=== PATIENT | male | born 1985 | race Two or more races ===

== ENCOUNTER 2017-12-05 07:47 | Inpatient (IN) | payer OTHER ==
[~2017-12-05] VITALS: Ht 175.3 cm; Wt 131.1 kg
[2017-12-05] MEDS ORDERED: FOLIC ACID 1 MG TABLET ONE (07:58)
[2017-12-05] MEDS ORDERED: THIAMINE HCL 100 MG TABLET ONE (07:58)
[2017-12-05] MEDS ORDERED: LORAZEPAM INJ 2 MG/ML VIAL ONE ×2 (07:58→08:47)
[2017-12-05] MEDS ORDERED: LORAZEPAM INJ 2 MG/ML VIAL IVP ONE (08:00)
[2017-12-05] MEDS ORDERED: THIAMINE HCL 100 MG TABLET PO ONE (08:00)
[2017-12-05] MEDS ORDERED: FOLIC ACID 1 MG TABLET PO ONE (08:00)
[2017-12-05] MEDS ORDERED: IV D5/0.45 NACL 500 ML IV ONE (08:00)
[2017-12-05] MEDS ORDERED: IV NS 0.9% 1,000 ML BAG IV ONE ×2 (08:00→10:00)
[2017-12-05 08:14] LABS: BASOPHILS % (AUTO) 0.5 % (0.0-2.0); EOSINOPHILS # (AUTO) 0.1 /CMM (0.0-0.7); EOSINOPHILS % (AUTO) 1.3 % (0.0-6.0); HEMATOCRIT 46 % (39-51); HEMOGLOBIN 15.9 g/dL (13.5-17.5); LYMPHOCYTES # (AUTO) 1.5 /CMM (0.8-4.8); LYMPHOCYTES % (AUTO) 21.9 % (20.0-44.0); MEAN CORPUSCULAR HEMOGLOBIN 30 PG (26.0-33.0); MEAN CORPUSCULAR HGB CONC 35 g/dl (31.0-36.0); MEAN CORPUSCULAR VOLUME 88 fL (80-96); MONOCYTES # (AUTO) 0.6 /CMM (0.1-1.30); MONOCYTES % (AUTO) 8.1 % (2.0-12.0); NEUTROPHILS # (AUTO) 4.7 /CMM (1.8-8.9); NEUTROPHILS % (AUTO) 68.2 % (43.0-81.0); PLATELET COUNT (AUTO) 334 /CMM (150-450); RDW COEFFICIENT OF VARIATION 14.8 (11.5-15.0); RED BLOOD CELL COUNT(AUTO) 5.21 MIL/uL (4.5-6.0)
[2017-12-05 08:25] LABS: CALCIUM, SERUM 9.5 mg/dL (8.5-10.1); CARBON DIOXIDE 19 mmol/L (21-32); CHLORIDE 93 mmol/L (98-107); CREATININE 1.2 mg/dL (0.6-1.3); GLUCOSE 131 mg/dL (74-106); POTASSIUM 3.8 mmol/L (3.5-5.1); SODIUM SERUM 132 mmol/L (136-145); UREA NITROGEN, BLOOD 5 mg/dL (7-18)
[2017-12-05 08:31] LABS: ALANINE AMINOTRANSFERASE 102 U/L (12-78); ALCOHOL, BLOOD < 3 mg/dL (0-0); ALKALINE PHOSPHATASE 74 U/L (46-116); ASPARTATE AMINOTRANSFERASE 73 U/L (15-37); BILIRUBIN,DIRECT 0.2 mg/dL (0.0-0.2); BILIRUBIN,TOTAL 0.8 mg/dL (0.2-1.0); TOTAL PROTEIN, SERUM 8.5 g/dL (6.4-8.2)
[2017-12-05] MEDS ORDERED: LORAZEPAM INJ 2 MG/ML VIAL IV ONE (09:00)
[2017-12-05 11:30] VITALS: BP 155/91
[2017-12-05] MEDS ORDERED: Folic acid 1 MG in IV D5W 50 ML IV SCH (11:30)
[2017-12-05] MEDS ORDERED: ONDANSETRON HCL/PF 4 MG/2 ML VIAL IVP PRN (11:30)
[2017-12-05] MEDS ORDERED: ZOLPIDEM TARTRATE 5 MG TABLET PO PRN (11:30)
[2017-12-05] MEDS ORDERED: ACETAMINOPHEN 325 MG TABLET PO PRN (11:30)
[2017-12-05] MEDS ORDERED: MAG HYDROX/AL HYDROX/SIMETH 30 ML UDC PO PRN (11:30)
[2017-12-05] MEDS ORDERED: Thiamine 100 MG in IV D5W 50 ML IV SCH (11:30)
[2017-12-05] MEDS ORDERED: Z GUARD REMEDY 2 OZ OINT TP PRN (11:30)
[2017-12-05] MEDS ORDERED: LORAZEPAM INJ 2 MG/ML VIAL IV PRN (11:30)
[2017-12-05] MEDS ORDERED: MAGNESIUM HYDROXIDE 30 ML UDC PO PRN (11:30)
[2017-12-05] MEDS ORDERED: HYDROCODONE/APAP 5/325MG 1 EACH TABLET PO PRN (11:30)
[2017-12-05] MEDS: IV 1/2NS 1000 ML 1,000 ML IV PRN ×2 (12:15→21:52)
[2017-12-05 16:00] VITALS: BP 163/93
[2017-12-05] MEDS: AMLODIPINE BESYLATE 5 MG TABLET PO SCH (17:08)
[2017-12-05 20:00] VITALS: BP 141/86
[2017-12-06] VITALS: BP 129/86
[2017-12-06 04:00] VITALS: BP 142/88
[2017-12-06 07:23] LABS: BASOPHILS % (AUTO) 0.1 % (0.0-2.0); EOSINOPHILS # (AUTO) 0.2 /CMM (0.0-0.7); EOSINOPHILS % (AUTO) 3.7 % (0.0-6.0); HEMATOCRIT 42 % (39-51); HEMOGLOBIN 14.2 g/dL (13.5-17.5); LYMPHOCYTES # (AUTO) 1.2 /CMM (0.8-4.8); LYMPHOCYTES % (AUTO) 23.8 % (20.0-44.0); MEAN CORPUSCULAR HEMOGLOBIN 30 PG (26.0-33.0); MEAN CORPUSCULAR HGB CONC 34 g/dl (31.0-36.0); MEAN CORPUSCULAR VOLUME 89 fL (80-96); MONOCYTES # (AUTO) 0.4 /CMM (0.1-1.30); MONOCYTES % (AUTO) 7.6 % (2.0-12.0); NEUTROPHILS # (AUTO) 3.4 /CMM (1.8-8.9); NEUTROPHILS % (AUTO) 64.8 % (43.0-81.0); PLATELET COUNT (AUTO) 262 /CMM (150-450); RDW COEFFICIENT OF VARIATION 14.6 (11.5-15.0); RED BLOOD CELL COUNT(AUTO) 4.68 MIL/uL (4.5-6.0); WHITE BLOOD COUNT (AUTO) 5.2 K/uL (4.3-11.0)
[2017-12-06 07:36] LABS: ALBUMIN 3.4 g/dL (3.4-5.0); CALCIUM, SERUM 8.8 mg/dL (8.5-10.1); CREATININE 0.7 mg/dL (0.6-1.3); PHOSPHORUS 4.6 mg/dL (2.5-4.9); POTASSIUM 3.9 mmol/L (3.5-5.1); TOTAL PROTEIN, SERUM 8.5 g/dL (6.4-8.2)
[2017-12-06 07:40] LABS: MAGNESIUM 1.2 mg/dL (1.8-2.4)
[2017-12-06 08:00] VITALS: BP 147/76
[2017-12-06 08:24] VITALS: BP 147/76
[2017-12-06] MEDS: AMLODIPINE BESYLATE 5 MG TABLET PO SCH (08:24)
[2017-12-06] MEDS ORDERED: FOLIC ACID 1 MG TABLET PO SCH (09:00)
[2017-12-06] MEDS ORDERED: THIAMINE HCL 100 MG TABLET PO SCH (09:00)
[2017-12-06] MEDS: Magnesium 1GM/D5W 100ML PREMIX 100 ML IV SCH ×4 (11:48→14:46)
== END 2017-12-06 15:45 | disposition home or self-care (01) | DRG 775 ==
LOC: ER 07:48 → TELE 10:51 → MED 12-06 12:12
PROVIDERS: ADMIT Internal Medicine; ATTEND Internal Medicine
DX: F10.239 Alcohol dependence with withdrawal, unspecified (principal); G92 Toxic encephalopathy; E87.2 Acidosis; G40.89 Other seizures; E87.1 Hypo-osmolality and hyponatremia; T51.0X1A Toxic effect of ethanol, accidental (unintentional), initial encounter; Y90.0 Blood alcohol level of less than 20 mg/100 ml; R74.0 Nonspecific elevation of levels of transaminase and lactic acid dehydrogenase [LDH]
CPT/HCPCS: 36415; 70450-TC; 80048-TC; 80053-TC; 80061-TC; 80076-TC; 83735-TC; 84100-TC; 85025-TC; 87081-TC; A4606; G0480; J2060; J3411; J3475; J3490; J7030; J7060; Z7610

== ENCOUNTER 2018-01-10 23:02 | Emergency (ER) | payer OTHER | END 2018-01-11 00:24 | disposition home or self-care (01) | DX: F10.10 Alcohol abuse, uncomplicated (principal) ==

== ENCOUNTER 2018-02-13 22:33 | Emergency (ER) | payer OTHER ==
[~2018-02-13] VITALS: Ht 172.7 cm; Wt 168.7 kg
--- NOTE | 2018-02-13 22:50 | NUR ---
TO BED 11 BIB MOM C/O HIGHBLOOD PRESSURE. PT BP 133/87. PT AAOX4, SLURRED SPEECH, HEAVY ALCOHOL SMELL ON BREATH. PT MOM CONFIRMS ALCOHOL INTOXICATION. PLACE PT ON CARDIAC MONITORING, CONTINUOUS POX. PENDING ER MD CHEEMA.
--- NOTE | 2018-02-13 22:51 | NUR ---
ER MD AT BEDSIDE TO ANETTE PT. PT MOM AT BEDSIDE.
[2018-02-13] MEDS ORDERED: IBUPROFEN 400 MG TABLET PO ONE (23:00)
[2018-02-13] MEDS ORDERED: IBUPROFEN 400 MG TABLET ONE (23:10)
--- NOTE | 2018-02-14 00:21 | NUR ---
PT ASLEEP, NO ACUTE DISTRESS NOTED, RESP EVEN AND UNLABORED. CALL LIGHT WIHTIN REACH. PT MOM REMAINS AT BEDSIDE.
--- NOTE | 2018-02-14 01:46 | NUR ---
PT ASLEEP, EASILY AROUSABLE. NO ACUTE DISTRESS NOTED, RESP EVEN AND UNLABORED. CALL LIGHT WIHTIN REACH. PT MOM REMAINS AT BEDSIDE.
--- NOTE | 2018-02-14 02:31 | NUR ---
ASSUMED D/C CARE ONLY AT THIS TIME ON BEHALF OF PRIMARY NURSE ED. Patient discharged to home in stable condition. Written and verbal after care instructions given. Patient verbalizes understanding of instruction. Ambulatory with a steady gait without any s/s of distress or c/o. Resp even and unlabored.
[2018-02-14 02:33] VITALS: BP 127/76
== END 2018-02-14 02:36 | disposition home or self-care (01) ==
LOC: ER 22:38
DX: S09.8XXA Other specified injuries of head, initial encounter (principal); F10.129 Alcohol abuse with intoxication, unspecified; G40.909 Epilepsy, unspecified, not intractable, without status epilepticus; X58.XXXA Exposure to other specified factors, initial encounter; Y93.89 Activity, other specified; Y92.89 Other specified places as the place of occurrence of the external cause; Y99.8 Other external cause status
CPT/HCPCS: 70450-TC; A4606; Z7610

== ENCOUNTER 2018-12-17 22:32 | Inpatient (IN) | payer OTHER ==
[~2018-12-17] VITALS: Ht 170.2 cm; Wt 114.3 kg
[2018-12-17 22:00] VITALS: BP 177/107
[2018-12-17 22:35] VITALS: BP 177/107
--- NOTE | 2018-12-17 22:45 | NUR ---
INTERNATIONAL SALES REPRESENTATIVEONCOLOGY ACCOUNT SPECIALIST NOTED: PT ADMITTED FROM [facility] VIA GURNEY ACCOMPANIED BY 2EMTS. PT IS ALERT AND ORIENTED X2 WITH EPISODES OF CONFUSION. VERBALLY RESPONSIVE. NO ACUTE DISTRESS NOTED. DENIES PAIN AND DISCOMFORT AT THIS TIME. ON ROOM AIR, SATURATING WELL. NO SOB NOTED. SINUS TACHY ON TELE MONITOR HR 103BPM. BP HIGH, 177/103. ANTISQUEAK WORKER CAMILLA CLARKE MADE AWARE. PT HAS AN IV LINE ON HIS LEFT ANTECUBITAL #20 INTACT AND PATENT, FLUSHING WELL. PERTINENT ASSESSMENTS DONE, SKIN IS INTACT. BELONGINGS LIST SIGNED AND ACCOUNTED FOR. KEPT CLEAN, DRY AND COMFORTABLE. CALL LIGHT PLACED WITHIN REACH. SIDE RAILS UP X3. BED ALARM ON. BED LOCKED AND IN LOWEST POSITION. WILL CONTINUE TO MONITOR PT.
[2018-12-17] MEDS ORDERED: LORAZEPAM INJ 2 MG/ML VIAL IV PRN (23:30)
[2018-12-17] MEDS ORDERED: ACETAMINOPHEN 325 MG TABLET PO PRN (23:30)
[2018-12-17] MEDS ORDERED: HYDROCODONE/APAP 5/325MG 1 EACH TABLET PO PRN (23:30)
[2018-12-17] MEDS ORDERED: ONDANSETRON HCL/PF 4 MG/2 ML VIAL IVP PRN (23:30)
[2018-12-17] MEDS ORDERED: MAGNESIUM HYDROXIDE 30 ML UDC PO PRN (23:30)
[2018-12-17] MEDS ORDERED: THIAMINE HCL 100 MG TABLET PO SCH (23:30)
[2018-12-17] MEDS ORDERED: FOLIC ACID 1 MG TABLET PO SCH (23:30)
[2018-12-17] MEDS ORDERED: ZOLPIDEM TARTRATE 5 MG TABLET PO PRN (23:30)
[2018-12-17] MEDS ORDERED: MAG HYDROX/AL HYDROX/SIMETH 30 ML UDC PO PRN (23:30)
[2018-12-17] MEDS ORDERED: Z GUARD REMEDY 2 OZ OINT TP PRN (23:30)
[2018-12-17] MEDS: IV NS 0.9% 1,000 ML IV PRN (23:47)
[2018-12-18] VITALS: BP_SYST 169; BP_DIAS 103; BP_DIAS 113
[2018-12-18] MEDS: LORAZEPAM INJ 2 MG/ML VIAL IV PRN ×4 (00:20→13:32)
[2018-12-18] MEDS: METOPROLOL TARTRATE 50 MG TABLET PO SCH ×2 (01:00→08:18)
--- NOTE | 2018-12-18 03:00 | NUR ---
LPTA NOTE: PT WAS TRYING TO GET OUT OF BED AND WAS PLAYING WITH HIS IV LINE. CAMILLA MIR MADE AWARE AND GAVE AN ORDER FOR A SITTER. WILL CONTINUE TO MONITOR PT.
[2018-12-18 04:00] VITALS: BP 137/92
[2018-12-18 06:43] LABS: BASOPHILS % (AUTO) 0.4 % (0.0-2.0); EOSINOPHILS % (AUTO) 1.2 % (0.0-6.0); HEMATOCRIT 42 % (39-51); HEMOGLOBIN 14.8 g/dL (13.5-17.5); LYMPHOCYTES # (AUTO) 0.6 /CMM (0.8-4.8); LYMPHOCYTES % (AUTO) 16.1 % (20.0-44.0); MEAN CORPUSCULAR HGB CONC 35 g/dl (31.0-36.0); MEAN CORPUSCULAR VOLUME 92 fL (80-96); MONOCYTES # (AUTO) 0.3 /CMM (0.1-1.30); MONOCYTES % (AUTO) 7.8 % (2.0-12.0); NEUTROPHILS # (AUTO) 2.7 /CMM (1.8-8.9); NEUTROPHILS % (AUTO) 74.5 % (43.0-81.0); PLATELET COUNT (AUTO) 161 /CMM (150-450); RED BLOOD CELL COUNT(AUTO) 4.58 MIL/uL (4.5-6.0); WHITE BLOOD COUNT (AUTO) 3.6 K/uL (4.3-11.0)
--- NOTE | 2018-12-18 06:57 | NUR ---
PARTS REMOVER NOTE: PT HAD EPISODES OF CONFUSION. FAMILY AND SITTER AT BEDSIDE DURING THIS TIME. PT REFUSED TO PUT ON TELE MONITOR AND REFUSED IVF, CAMILLA MIR AWARE. NO COMPLAINTS OF PAIN OR DISCOMFORT AT THIS TIME. NO SOB NOTED. KEPT CLEAN, DRY AND COMFORTABLE. SAFETY AND FALL PRECAUTIONS OBSERVED AND MAINTAINED. WILL ENDORSE TO DAY SHIFT RN FOR CONTINUITY OF CARE
[2018-12-18 07:06] LABS: CALCIUM, SERUM 7.6 mg/dL (8.5-10.1); CREATININE 0.6 mg/dL (0.6-1.3); PHOSPHORUS 2.5 mg/dL (2.5-4.9); POTASSIUM 3.1 mmol/L (3.5-5.1)
[2018-12-18 07:18] LABS: MAGNESIUM 0.8 mg/dL (1.8-2.4)
--- NOTE | 2018-12-18 07:20 | NUR ---
RN OPENING NOTE RECEIVED PATIENT AWAKE AND AMBULATORY. CONFUSED AT TIMES. PER NOC SHIFT RN, PATIENT REFUSED TO BE ON THE TELE MONITOR AND IVF. PATIENT HAS A SITTER ON BEDSIDE. SKIN IS INTACT. HAD A CALL FROM THE LAB REGARDING PATIENT'S CRITICAL LAB VALUE OF MG 0.8. WILL LET MD KNOW. BED ON LOWEST POSITION. CALL LIGHT WITHIN REACH. WILL CONTINUE TO MONITOR CLOSELY.
[2018-12-18 08:00] VITALS: BP 141/86
[2018-12-18] MEDS: FOLIC ACID 1 MG TABLET PO SCH (08:18)
[2018-12-18] MEDS: THIAMINE HCL 100 MG TABLET PO SCH (08:18)
[2018-12-18] MEDS ORDERED: Magnesium 1 GM/2 ML VIAL IV ONE (09:00)
[2018-12-18] MEDS: Magnesium 1GM/D5W 100ML PREMIX 100 ML IV SCH ×3 (09:10→20:47)
[2018-12-18] MEDS: POTASSIUM CHLORIDE 20 MEQ TAB.PRT.SR PO SCH ×2 (10:14→11:24)
[2018-12-18] MEDS ORDERED: AMLO10TA7 PO (10:26)
[2018-12-18] MEDS ORDERED: LISI40TA4 PO (10:26)
[2018-12-18] MEDS ORDERED: LORAZEPAM INJ 2 MG/ML VIAL IV ONE (10:30)
[2018-12-18] MEDS ORDERED: diphenhydrAMINE HCL 50 MG/ML VIAL IV ONE (11:00)
--- NOTE | 2018-12-18 14:28 | NUR ---
Social service consult requested by AVINASH Costa for alcohol abuse. Pt. is a 33 year old male who was admitted to [facility] for alcohol withdrawals. SW met with pt. bedside. Pt. was sitting on his bed. Pt's eyes were red and appeared to be withdrawing. Pt. appeared confused at times. Pt. states he lives with is family at [address], [place] [address]. Pt's emergency contact is his mother Sandy Mathew . SW inquired with pt. how much alcohol he drinks daily. Pt. stated, " A lot." SW asked again, " what's a lot?" and pt. stated he drinks a lot of vodka. Pt. has been drinking for the past 3 to 4 years. Pt. states he was in a treatment program 6 years ago. Pt. has been to AA in the past but states, he doesn't care for it too much. Pt. appears resistant to change his drinking habits. Pt. is willing to accept alcohol treatment program referrals. SW to give pt. referrals upon discharge. SW encouraged pt. to go to a treatment program. SW to follow up with pt. regarding referrals prior to discharge.
[2018-12-18] MEDS ORDERED: HALOPERIDOL LACTATE INJ 5 MG/ML VIAL IM ONE (14:30)
[2018-12-18] MEDS ORDERED: QUETIAPINE FUMARATE 25 MG TABLET PO PRN (15:00)
--- NOTE | 2018-12-18 15:57 | NUR ---
RN NOTE DRY MOP MAKER ROCIO AT BEDSIDE, PATIENT PULLED OUT HIS IV WE STEP OUT OF THE ROOM. ROCIO INSERTED A LINE TO RUN THE MG (RIGHT HAND #22). ORDERED ATIVAN 2MG ONCE AND BENADRYL ONCE. PATIENT VERY AGITATED, AMBULATING AROUND THE ROOM AND SUDDENLY PULLED OUT HIS IV AGAIN. HAD TO INSERT ANOTHER SITE TO CONTINUE THE MG (RIGHT AC #22). ONCE AGAIN, PATIENT PULLED OUT HIS IV. VERY CONFUSED, WAS ASKING FOR HIS DVD AND WANTS TO GO TO THE "PARKING LOT". ROCIO PRESCRIBED HALDOL 5 MG IM ONCE. PATIENT IS ASLEEP AT THIS TIME.
[2018-12-18 16:00] VITALS: BP 134/75
[2018-12-18] MEDS: QUETIAPINE FUMARATE 25 MG TABLET PO SCH (16:27)
--- NOTE | 2018-12-18 17:41 | NUR ---
RN NOTE ONLY 2 BAGS OF MG HAS BEEN GIVEN. WILL TRY TO INSERT ANOTHER IV SITE. AWARE
--- NOTE | 2018-12-18 18:48 | NUR ---
RN CLOSING NOTE PATIENT ASLEEP BUT EASILY AROUSABLE. IV SITE NEEDS TO BE INSERTED. ALL MEDS ARE GIVEN, VS HAS BEEN WNL THROUGH OUT THE DAY. PATIENT VERY CONFUSED. PHARMACISTS ROCIO AND PSYCH DOCTOR CAME IN TO SEE THE PATIENT. ORDERED MEDS TO RELAX THE PATIENT. SW TALKED TO THE PATIENT WELL. FAMILY CAME IN TO SEE THE PATIENT. WILL ENDORSE TO NOC SHIFT
[2018-12-18 20:00] VITALS: BP 138/86
--- NOTE | 2018-12-18 20:00 | NUR ---
SEMIAUTOMATIC STITCHER OPERATOR NOTE: RECEIVED PT ON BED ALERT TO HIMSELF, VERBALLY RESPONSIVE. SITTER AT BEDSIDE. NO ACUTE DISTRESS NOTED. DENIES PAIN AND DISCOMFORT AT THIS TIME. ON ROOM AIR, SATURATING WELL. NO SOB NOTED. IV LINE INSERTED ON LEFT FOREARM #22, INTACT AND PATENT, IVF INFUSING WELL. KEPT CLEAN, DRY AND COMFORTABLE. SAFETY AND FALL PRECAUTIONS OBSERVED AND MAINTAINED. WILL CONTINUE TO MONITOR PT. Addendum: 12/18/18 at 2221 by PHOENIX HERNANDEZ RN PT IS A MEDSURG PT.
--- NOTE | 2018-12-18 22:22 | NUR ---
MS RN NOTE: PT WAS TRANSFERRED TO RM 205. REPORT GIVEN TO ALETA GREY.
[2018-12-18 22:35] VITALS: BP 140/94
--- NOTE | 2018-12-18 22:35 | NUR ---
TRANSFER OF CARE RECEIVE PT VIA BED AND REPORT FROM SABRINA WITH 2 RN AND 1 SITTER PT A/O X2 CALM, RESPIRATIONS EVEN AND UNLABORED, NO SOB NOTED, NO DISTRESS, SAFETY MEASURES IN PLACE. WILL CONTINUE TO MONITOR. ALL BELONGINGS WITH PT. BROTHER AT BEDSIDE.
[2018-12-19] MEDS: IV NS 0.9% 1,000 ML IV PRN ×2 (00:08→08:07)
[2018-12-19] MEDS: LORAZEPAM INJ 2 MG/ML VIAL IV PRN ×2 (02:28→11:40)
--- NOTE | 2018-12-19 06:15 | NUR ---
MS RN CLOSING NOTE IN BED ASLEEP COMFORTABLY AND EASILY AWAKEN, STABLE. RESPIRATIONS EVEN AND UNLABORED. NURSING CARE RENDERED. NEEDS ATTENDED AND ANTICIPATED, KEPT DRY, CLEAN AND COMFORT. SAFETY MEASURES IN PLACE, BED IN LOW LOCKED POSITION, CALL LIGHT WITHIN EASY REACH. ENDORSE TO NEXT SHIFT CONTINUITY OF CARE.
[2018-12-19 07:10] LABS: CALCIUM, SERUM 7.7 mg/dL (8.5-10.1); CREATININE 0.5 mg/dL (0.6-1.3); MAGNESIUM 1.4 mg/dL (1.8-2.4); POTASSIUM 3.1 mmol/L (3.5-5.1)
[2018-12-19 08:00] VITALS: BP 154/91
--- NOTE | 2018-12-19 08:00 | NUR ---
RN NOTES RECEIVED PATIENT IN THE ROOM A/O X4 MALE . PATIENT HAS NO ACUTE RESPIRATORY DISTRESS, WITHDRAW,PATIENT ANXIOUS, DEPRESS, WAS COMPLAINING OF GENERALIZED PAIN 4/10 PER PATIENT REQUEST, ADMINISTERED SCHEDULED MEDICATION, INFUSING NS AT 125 ML/HR. PATIENT REFUSED SI/HI AT THIS TIME, 1;1 SITTER NEXT TO THE BED FOR SAFETY, CALL LIGHT WITHIN TO REACH, SAFETY PRECAUTION MAINTAINED ALL THE TIME.
[2018-12-19] MEDS: THIAMINE HCL 100 MG TABLET PO SCH (08:07)
[2018-12-19] MEDS: FOLIC ACID 1 MG TABLET PO SCH (08:07)
[2018-12-19] MEDS: QUETIAPINE FUMARATE 25 MG TABLET PO SCH ×3 (08:08→18:02)
[2018-12-19] MEDS ORDERED: AMLODIPINE BESYLATE 10 MG TABLET PO SCH (09:00)
[2018-12-19] MEDS ORDERED: LISINOPRIL (20MG) 20 MG TABLET PO SCH (09:00)
[2018-12-19] MEDS: POTASSIUM CHLORIDE 20 MEQ TAB.PRT.SR PO SCH ×2 (10:35→11:31)
[2018-12-19] MEDS: Magnesium 1GM/D5W 100ML PREMIX 100 ML IV SCH ×4 (10:36→13:20)
--- NOTE | 2018-12-19 11:40 | NUR ---
RN NOTES ADMINISTERED ATIVAN 2 MG/ML FOR ANXIETY PER PATIENT REQUEST, V/S TAKEN BP -127/77, P-108. CONTINUED MONITORING.
--- NOTE | 2018-12-19 13:00 | NUR ---
RN NOTES PATIENT STABLE MEDICATION WERE ADMINISTERED FOR ANXIETY EFFECTIVE,V/S STABLE, 1;1 SITTER NEXT TO THE BED FOR SAFETY, CONTINUED MONITORING.
--- NOTE | 2018-12-19 16:00 | NUR ---
RN NOTES PATIENT GOING TO D/C HOME PER DNP ROCIO. PATIENT WILL MANAGER CORPORATE REFERRAL TO AA WITHIN COMMUNITY.
--- NOTE | 2018-12-19 16:01 | NUR ---
ZHANNA met with pt. vita and gave him the following alcohol treatment program resources: AA meetings [place] hotline: , [place] ([place]) , [facility] . [facility] Substance Abuse Self-helpline ([facility]) Substance Abuse Contact number . Call the hotline and the torch operator will screen and link individual to an appropriate program. Must have Medi-jerri or be Med-jerri eligible. [facility] [id number] [address] [facility] [place] [address] [facility] [address] [facility] [place] [address] Appointment needed [facility] (Latter-Day based) [address] [facility] [place] [address] (Six months program and need to work for 8 hrs per day while in treatment) [facility] (No insurance required) [address] [place], [place] [id number] [facility] [address] [facility] [address] Closed on Sunday Open Sunday through Sunday 9 am -6 pm [facility] [phone] [address] [facility] [address] Prefer phone calls. They do allow walk-ins but prefer appointments. No other social service needs are requested at this time. ZHANNA is available, if needed.
[2018-12-19 16:23] VITALS: BP 157/82
--- NOTE | 2018-12-19 18:59 | NUR ---
DISCHARGE NOTES PATIENT DISCHARGE AT THIS TIME GOING HOME. PATIENT STABLE REFUSED PAIN, REFUSED SI/HI AT THIS TIME. MED RECONCILIATION AND DISCHARGE ORDER REVIEWED AND EXPLAINED TO PATIENT AND MOTHER. PATIENT VERBALIZED UNDERSTANDING. PATIENT SIGN PAPERWORK WILL STOL ALCOHOL CESSATION, TAKE SEROQUEL , AND SOCIAL SERVICE AA MEETING. ESCORTED PATIENT TO THE LOBBY FOR SAFETY. PRESCRIPTION HANDED TO THE PATIENT. PATIENT EMPLOYMENT AGENCY MANAGER BY MOTHER NAME BARBARA PHONE# [phone].
== END 2018-12-19 19:00 | disposition home or self-care (01) | DRG 775 ==
LOC: TELE1 22:32 → MEDSG1 12-18 06:11 → MEDSG2 12-18 22:17
PROVIDERS: ADMIT Nurse Practitioner Acute Care; ATTEND Nurse Practitioner Acute Care
DX: F10.239 Alcohol dependence with withdrawal, unspecified (principal); F10.229 Alcohol dependence with intoxication, unspecified; G92 Toxic encephalopathy; D68.59 Other primary thrombophilia; E87.2 Acidosis; E66.01 Morbid (severe) obesity due to excess calories; E83.42 Hypomagnesemia; E87.1 Hypo-osmolality and hyponatremia; I15.8 Other secondary hypertension; G40.89 Other seizures; Y90.9 Presence of alcohol in blood, level not specified; G40.509 Epileptic seizures related to external causes, not intractable, without status epilepticus; Z68.39 Body mass index [BMI] 39.0-39.9, adult; E86.1 Hypovolemia; F29 Unspecified psychosis not due to a substance or known physiological condition; F10.259 Alcohol dependence with alcohol-induced psychotic disorder, unspecified; E78.1 Pure hyperglyceridemia
CPT/HCPCS: 36415; 80048-TC; 80061-TC; 83735-TC; 84100-TC; 85025-TC; 87081-TC; G0378; J1200; J1630; J2060; J3475; J7030

== ENCOUNTER 2019-01-02 05:52 | Emergency (ER) | payer OTHER ==
[~2019-01-02] VITALS: Ht 170.2 cm; Wt 111.1 kg
[~2019-01-02 05:52] MED LIST: AMLO10TA7 PO; LISI40TA4 PO
--- NOTE | 2019-01-02 06:00 | NUR ---
PT BIBRA FROM HOME C/O HIGH BP. DENIES CP, SOB, DIZZINESS, HEADACHE. PER RA, +ETOH. PT AAOX4. RESPIRATIONS EVEN AND UNLABORED. SKIN WARM AND INTACT. NO ACUTE DISTRESS NOTED AT THIS TIME. WILL CONTINUE TO MONITOR
[2019-01-02] MEDS ORDERED: AMLODIPINE BESYLATE 5 MG TABLET ONE (06:23)
--- NOTE | 2019-01-02 06:28 | NUR ---
PT'S BP 139/89, PER VERBAL MD ORDER, WILL HOLD AMLODIPINE
--- NOTE | 2019-01-02 06:29 | NUR ---
MOTHER (BARBARA) CONTACT INFORMATION:
[2019-01-02] MEDS ORDERED: AMLODIPINE BESYLATE 5 MG TABLET PO ONE (06:30)
--- NOTE | 2019-01-02 06:34 | NUR ---
ATTEMPTED TO CONTACT PT'S MOTHER TO LAST GREASER PT, NO ANSWER. WILL FOLLOW UP
--- NOTE | 2019-01-02 06:38 | NUR ---
CALLED PT'S MOTHER, ON HER WAY TO COME GASKET MAKER PT
--- NOTE | 2019-01-02 07:26 | NUR ---
Patient discharged to home in stable condition. Written and verbal after care instructions given. Patient verbalizes understanding of instruction.
[2019-01-02 07:27] VITALS: BP 132/85
== END 2019-01-02 07:29 | disposition home or self-care (01) ==
LOC: ER 05:57
DX: I10 Essential (primary) hypertension (principal); F10.129 Alcohol abuse with intoxication, unspecified; G40.909 Epilepsy, unspecified, not intractable, without status epilepticus; Y90.9 Presence of alcohol in blood, level not specified

== ENCOUNTER 2019-02-04 01:21 | Emergency (ER) | payer OTHER ==
[~2019-02-04] VITALS: Ht 170.2 cm; Wt 111.1 kg
--- NOTE | 2019-02-04 01:30 | NUR ---
PT BIBRA39 FROM HOME +ETOH, PT IS AAOX2, NOT IN RESPIRATORY DISTRESS, V/S STABLE, KEPT RESTED AND COMFORTABLE, WILL CONTINUE TO MONITOR.
--- NOTE | 2019-02-04 01:43 | NUR ---
URINE SPECIMEN COLLECTED AND SENT TO LAB.
--- NOTE | 2019-02-04 04:22 | NUR ---
PT CLEARED FOR DISCHARGE. CALLED PT'S MOTHER (BARBARA) [phone] TO COME CUSTOMER CONTACT SALES ASSOCIATE PT
[2019-02-04 04:44] VITALS: BP 133/82
--- NOTE | 2019-02-04 04:44 | NUR ---
Patient discharged to home in stable condition. Written and verbal after care instructions given. Patient verbalizes understanding of instruction.
== END 2019-02-04 04:47 | disposition home or self-care (01) ==
LOC: ER 01:24
DX: F10.129 Alcohol abuse with intoxication, unspecified (principal); Z79.899 Other long term (current) drug therapy; Y90.9 Presence of alcohol in blood, level not specified

== ENCOUNTER 2019-12-07 16:05 | Emergency (ER) | payer OTHER ==
[~2019-12-07] VITALS: Ht 170.2 cm; Wt 103.4 kg
[2019-12-07] MEDS ORDERED: LIDOCAINE 1%-EPI 1:100,000 20 ML VIAL ONE (16:17)
[2019-12-07] MEDS ORDERED: ACETAMINOPHEN ES 500 MG TABLET ONE (16:18)
[2019-12-07] MEDS ORDERED: TDAP [DIPH/PERTUSSIS/TET] 0.5 ML VIAL IM ONE ×2 (16:19→16:30)
--- NOTE | 2019-12-07 16:27 | NUR ---
GABRIELA DAN AT BEDSIDE FOR I&D
[2019-12-07] MEDS ORDERED: ACETAMINOPHEN 325 MG TABLET PO ONE (16:30)
--- NOTE | 2019-12-07 17:06 | NUR ---
PATIENT STAYS FOR A WHILE TO CHECK ON HIS HR.
[2019-12-07 17:46] VITALS: BP 145/72
--- NOTE | 2019-12-07 18:01 | NUR ---
GABRIELA DAN AT BEDSIDE. PATIENT OK TO GO HOME
== END 2019-12-07 17:06 | disposition home or self-care (01) ==
LOC: ER 16:10
DX: L02.212 Cutaneous abscess of back [any part, except buttock and flank] (principal); G40.909 Epilepsy, unspecified, not intractable, without status epilepticus; Z79.899 Other long term (current) drug therapy
CPT/HCPCS: 10060; 90471; 90715; 99283; A6403; A6407; J3490

== ENCOUNTER 2019-12-09 21:05 | Emergency (ER) | payer OTHER ==
[~2019-12-09] VITALS: Ht 170.2 cm; Wt 104.3 kg
[2019-12-09 21:05] VITALS: BP 115/89
[2019-12-09] MEDS ORDERED: LIDOCAINE 1%-EPI 1:100,000 20 ML VIAL ONE (21:24)
[2019-12-09] MEDS ORDERED: LIDOCAINE 1%-EPI 1:100,000 20 ML VIAL TP ONE (21:30)
--- NOTE | 2019-12-09 21:30 | NUR ---
DR. CERVANTES AT BEDSIDE FOR I&D
== END 2019-12-09 21:48 | disposition home or self-care (01) ==
LOC: ER 21:15
DX: D17.39 Benign lipomatous neoplasm of skin and subcutaneous tissue of other sites (principal); L03.312 Cellulitis of back [any part except buttock and flank]; R56.9 Unspecified convulsions; Z79.899 Other long term (current) drug therapy
CPT/HCPCS: 10060; 99283; A6403; A6407; J3490

== ENCOUNTER 2019-12-15 08:52 | Emergency (ER) | payer OTHER ==
[~2019-12-15] VITALS: Ht 170.2 cm; Wt 104.3 kg
[2019-12-15] MEDS ORDERED: LIDOCAINE 1%-EPI 1:100,000 20 ML VIAL ONE (09:20)
[2019-12-15 09:51] VITALS: BP 125/90
--- NOTE | 2019-12-15 09:52 | NUR ---
Patient discharged to home in stable condition. Written and verbal after care instructions given. Patient verbalizes understanding of instruction.
== END 2019-12-15 09:52 | disposition home or self-care (01) ==
LOC: ER 08:53
DX: L72.3 Sebaceous cyst (principal); F17.200 Nicotine dependence, unspecified, uncomplicated; Z79.899 Other long term (current) drug therapy
CPT/HCPCS: 10060; 76536; 99284; A6403 ×2; A6407; J3490

== ENCOUNTER 2020-02-04 01:18 | Emergency (ER) | payer OTHER ==
[~2020-02-04] VITALS: Ht 170.2 cm; Wt 81.6 kg
[2020-02-04 01:18] VITALS: BP 144/92
[2020-02-04 02:29] LABS: APPEARANCE,URINE Clear (CLEAR); BILIRUBIN,URINE Negative (NEGATIVE); BLOOD, URINE Negative Ery/uL (NEGATIVE); COLOR,URINE Yellow (YELLOW); KETONES,URINE Negative (NEGATIVE); LEUKOCYTE ESTERASE ,URINE Negative (NEGATIVE); NITRITE, URINE Negative (NEGATIVE); PROTEIN,URINE 100 mg/dl (NEGATIVE); UGLUCOSE Negative (NEGATIVE); UROBILINOGEN,URINE 0.2 EU/dL (0.2)
[2020-02-04 02:37] LABS: BACTERIA,URINE Rare /HPF (None Seen); RBC,URINE 0-2 /HPF (0-2); SQUAMOUS EPITHELIAL CELL,UR Rare /HPF (None Seen); WBC,URINE 0-2 /HPF (0-3)
--- NOTE | 2020-02-04 02:41 | NUR ---
US TECH AT THE BED SIDE
== END 2020-02-04 06:02 | disposition home or self-care (01) ==
LOC: ER 01:18
DX: N50.812 Left testicular pain (principal); R56.9 Unspecified convulsions; I10 Essential (primary) hypertension; Z79.899 Other long term (current) drug therapy
CPT/HCPCS: 76870-TC; 81000-TC

== ENCOUNTER 2020-03-17 02:59 | Emergency (ER) | payer OTHER ==
[~2020-03-17] VITALS: Ht 170.2 cm; Wt 108.0 kg
--- NOTE | 2020-03-17 03:08 | NUR ---
BIBSELF C/O L TESTICULAR RADIATING TO L THIGH PAIN X3 WEEKS. NO ACUTE DISTRESS NOTED. AMBULATORY WITH STEADY GAIT. VSS.
--- NOTE | 2020-03-17 03:34 | NUR ---
URINE COLLECTED AND SENT TO LAB
[2020-03-17 03:44] LABS: APPEARANCE,URINE Clear (CLEAR); BILIRUBIN,URINE SMALL (NEGATIVE); BLOOD, URINE Trace-intact Ery/uL (NEGATIVE); COLOR,URINE Orange (YELLOW); KETONES,URINE Negative (NEGATIVE); LEUKOCYTE ESTERASE ,URINE Negative (NEGATIVE); NITRITE, URINE Negative (NEGATIVE); PH,URINE 5.5 (5.0-8.0); PROTEIN,URINE >=300 mg/dl (NEGATIVE); UGLUCOSE Negative (NEGATIVE)
[2020-03-17 04:23] LABS: BACTERIA,URINE Few /HPF (None Seen); SQUAMOUS EPITHELIAL CELL,UR Few /HPF (None Seen)
--- NOTE | 2020-03-17 06:01 | NUR ---
US AT BEDSIDE
--- NOTE | 2020-03-17 06:37 | NUR ---
Patient discharged to home in stable condition. Written and verbal after care instructions given. Patient verbalizes understanding of instruction and rx. Pt instructed not to drive. Picked up by mother. vss.
[2020-03-17 06:38] VITALS: BP 121/73
== END 2020-03-17 06:38 | disposition home or self-care (01) ==
LOC: ER 03:01
DX: I86.1 Scrotal varices (principal); R56.9 Unspecified convulsions; I10 Essential (primary) hypertension; Z79.899 Other long term (current) drug therapy
CPT/HCPCS: 76870-TC; 81000-TC

== ENCOUNTER 2021-01-28 03:26 | Emergency (ER) | payer OTHER ==
[~2021-01-28] VITALS: Ht 170.2 cm; Wt 104.3 kg
[~2021-01-28 03:26] MED LIST changes: +AMLO-213 PO; -AMLO10TA7 PO; +LISI40TA13 PO; -LISI40TA4 PO
[2021-01-28 03:30] VITALS: BP 158/85
--- NOTE | 2021-01-28 03:35 | NUR ---
PT AAOX4. BIBS C/O R LATERAL BELOW KNEE LACERATION S/P HIT THE CORNER OF THE BED. PT PLACED IN BED 9 ON MONITOR AND PULSE OX. AWAITING ER MD FOR EVAL. EMT AT BEDSIDE FOR WOUND CARE.
[2021-01-28] MEDS ORDERED: LIDOCAINE 0.5%-EPI 1:200,000 50 ML VIAL ONE (03:44)
--- NOTE | 2021-01-28 04:03 | NUR ---
ER AT BEDSIDE FOR WOUND CARE
== END 2021-01-28 04:52 | disposition home or self-care (01) ==
LOC: ER 03:29
DX: S81.811A Laceration without foreign body, right lower leg, initial encounter (principal); F10.129 Alcohol abuse with intoxication, unspecified; I10 Essential (primary) hypertension; F17.200 Nicotine dependence, unspecified, uncomplicated; Z79.899 Other long term (current) drug therapy; W22.8XXA Striking against or struck by other objects, initial encounter; Y93.89 Activity, other specified; Y92.091 Bathroom in other non-institutional residence as the place of occurrence of the external cause; Y99.8 Other external cause status; Y90.9 Presence of alcohol in blood, level not specified
CPT/HCPCS: 12002; 99282; A6403; J3490

== ENCOUNTER 2021-02-07 10:37 | Emergency (ER) | payer OTHER ==
[~2021-02-07] VITALS: Ht 170.2 cm; Wt 105.2 kg
[2021-02-07 10:43] VITALS: BP 132/81
--- NOTE | 2021-02-07 10:52 | NUR ---
AT BEDSIDE FOR EVAL.
--- NOTE | 2021-02-07 11:10 | NUR ---
SUTURE REMOVED BY .
--- NOTE | 2021-02-07 11:23 | NUR ---
Patient discharged to home in stable condition. Written and verbal after care instructions given. Patient verbalizes understanding of instruction.
== END 2021-02-07 11:24 | disposition home or self-care (01) ==
LOC: ER 10:37
DX: S81.811D Laceration without foreign body, right lower leg, subsequent encounter (principal); I10 Essential (primary) hypertension; F17.200 Nicotine dependence, unspecified, uncomplicated; Z79.899 Other long term (current) drug therapy; X58.XXXD Exposure to other specified factors, subsequent encounter

== ENCOUNTER 2021-03-05 00:26 | Emergency (ER) | payer OTHER ==
[~2021-03-05] VITALS: Ht 171.4 cm; Wt 104.3 kg
[2021-03-05 00:26] VITALS: BP 148/76
[2021-03-05] MEDS ORDERED: FLUORESCEIN SODIUM OPHTH 1 EA STRIP ONE (00:51)
[2021-03-05] MEDS ORDERED: TETRACAINE HCL 0.5% OPHTALMIC 15 ML BOTTLE OP ONE (01:00)
[2021-03-05] MEDS ORDERED: FLUORESCEIN SODIUM OPHTH 1 EA STRIP OP ONE (01:00)
--- NOTE | 2021-03-05 03:35 | NUR ---
Patient is received by mother outside in the waiting room.
--- NOTE | 2021-03-05 03:35 | NUR ---
Patient discharged to home in stable condition. Written and verbal after care instructions given. Patient verbalizes understanding of instruction.
== END 2021-03-05 03:37 | disposition home or self-care (01) ==
LOC: ER 00:27
DX: S00.11XA Contusion of right eyelid and periocular area, initial encounter (principal); F10.129 Alcohol abuse with intoxication, unspecified; I10 Essential (primary) hypertension; F17.200 Nicotine dependence, unspecified, uncomplicated; Z79.899 Other long term (current) drug therapy; X58.XXXA Exposure to other specified factors, initial encounter; Y93.89 Activity, other specified; Y92.89 Other specified places as the place of occurrence of the external cause; Y99.8 Other external cause status; Y90.9 Presence of alcohol in blood, level not specified
CPT/HCPCS: 70480-TC

== ENCOUNTER 2021-06-05 16:16 | Emergency (ER) | payer OTHER ==
[~2021-06-05] VITALS: Ht 170.2 cm; Wt 97.1 kg
--- NOTE | 2021-06-05 16:20 | NUR ---
To ER bed 10, c/o laceration to left huber s/p fell off the ladder, -ko, not actively bleeding, aaox4, breathing even and non labored
--- NOTE | 2021-06-05 16:30 | NUR ---
EMT AT BEDSIDE FOR WOUND CARE
[2021-06-05] MEDS ORDERED: TDAP [DIPH/PERTUSSIS/TET] 0.5 ML VIAL IM ONE ×2 (17:00→17:19)
[2021-06-05] MEDS ORDERED: IBUP-1955 PO (17:22)
[2021-06-05] MEDS ORDERED: CEPH500T PO (17:22)
[2021-06-05] MEDS ORDERED: CEPHALEXIN MONOHYDRATE 500 MG CAPSULE PO ONE ×2 (17:24→17:30)
--- NOTE | 2021-06-05 17:28 | NUR ---
Patient discharged to home in stable condition. Written and verbal after care instructions given. Patient verbalizes understanding of instruction.
[2021-06-05 17:32] VITALS: BP 122/69
== END 2021-06-05 17:33 | disposition home or self-care (01) ==
LOC: ER 16:24
DX: S81.812A Laceration without foreign body, left lower leg, initial encounter (principal); I10 Essential (primary) hypertension; F17.200 Nicotine dependence, unspecified, uncomplicated; G40.909 Epilepsy, unspecified, not intractable, without status epilepticus; Z79.899 Other long term (current) drug therapy; W11.XXXA Fall on and from ladder, initial encounter; Y93.89 Activity, other specified; Y92.89 Other specified places as the place of occurrence of the external cause; Y99.8 Other external cause status
CPT/HCPCS: 12002; 73590; 90471; 90715; 99283; A6403

== ENCOUNTER 2021-06-14 15:00 | Emergency (ER) | payer OTHER ==
[~2021-06-14] VITALS: Ht 170.2 cm; Wt 99.8 kg
[~2021-06-14 15:00] MED LIST changes: +CEPH500T PO; +IBUP-1955 PO
[2021-06-14 15:37] VITALS: BP 160/100
== END 2021-06-14 16:38 | disposition home or self-care (01) ==
LOC: ER 15:02
DX: S81.812D Laceration without foreign body, left lower leg, subsequent encounter (principal); I10 Essential (primary) hypertension; F10.10 Alcohol abuse, uncomplicated; F17.200 Nicotine dependence, unspecified, uncomplicated; Y90.9 Presence of alcohol in blood, level not specified; Z79.899 Other long term (current) drug therapy; X58.XXXD Exposure to other specified factors, subsequent encounter

== ENCOUNTER 2021-06-27 18:08 | Emergency (ER) | payer OTHER ==
[~2021-06-27] VITALS: Ht 172.7 cm; Wt 79.8 kg
[2021-06-27 19:36] VITALS: BP 133/76
[2021-06-27] MEDS ORDERED: BACI30OI9 TP (19:38)
--- NOTE | 2021-06-27 19:46 | NUR ---
Patient discharged to home in stable condition. Written and verbal after care instructions given. Patient verbalizes understanding of instruction.
== END 2021-06-27 19:47 | disposition home or self-care (01) ==
LOC: ER 18:13
DX: Z48.01 Encounter for change or removal of surgical wound dressing (principal); I10 Essential (primary) hypertension; G40.909 Epilepsy, unspecified, not intractable, without status epilepticus; F17.200 Nicotine dependence, unspecified, uncomplicated; Z79.899 Other long term (current) drug therapy

== ENCOUNTER 2021-07-07 19:27 | Emergency (ER) | payer OTHER ==
[~2021-07-07] VITALS: Ht 170.2 cm; Wt 95.3 kg
[~2021-07-07 19:27] MED LIST changes: +BACI30OI9 TP
--- NOTE | 2021-07-07 20:41 | NUR ---
WINDY CARRASQUILLO C/O LEFT LEG PAIN FOR THE PAST WEEK, WORSING TODAY. PATIENT IS A/O X 4, RR EVEN AND UNLABORED, NO SOB NOTED. PATIENT CONNECETED TO CARDAIC AND POX MONITOR.
[2021-07-07 20:52] VITALS: BP 151/88
[2021-07-07] MEDS ORDERED: LISINOPRIL (20MG) 20 MG TABLET PO SCH (21:00)
== END 2021-07-07 21:01 | disposition home or self-care (01) ==
LOC: ER 19:30
DX: R25.2 Cramp and spasm (principal); I10 Essential (primary) hypertension; F17.200 Nicotine dependence, unspecified, uncomplicated; Z79.899 Other long term (current) drug therapy

== ENCOUNTER 2021-07-20 22:46 | Emergency (ER) | payer OTHER ==
[~2021-07-20] VITALS: Ht 170.2 cm; Wt 127.0 kg
[2021-07-20 23:04] VITALS: BP 142/69
== END 2021-07-20 23:08 | disposition home or self-care (01) ==
LOC: ER 22:47
DX: F10.129 Alcohol abuse with intoxication, unspecified (principal); R04.0 Epistaxis; I10 Essential (primary) hypertension; F17.200 Nicotine dependence, unspecified, uncomplicated; Z79.899 Other long term (current) drug therapy; Y90.9 Presence of alcohol in blood, level not specified

== ENCOUNTER 2021-07-29 02:45 | Emergency (ER) | payer OTHER ==
[~2021-07-29] VITALS: Ht 170.2 cm; Wt 90.7 kg
[2021-07-29] MEDS ORDERED: IBUPROFEN 400 MG TABLET PO ONE (04:00)
--- NOTE | 2021-07-29 04:00 | NUR ---
BIBSELF C/O L KNEE PAIN DENIES ANY RECENT INJURIES OR FALLS. LOWER EXTREMITY PRESENTS WITH A CONTUSION TO THE INNER THIGH WELL A HEALING LACERATION TO THE MURO FROM A PREVIOUS INJURY PER PATIENT. MD WAS AT THE BEDSIDE FOR EVALUATION.
[2021-07-29] MEDS ORDERED: IBUPROFEN 200 MG TABLET ONE (04:04)
[2021-07-29] MEDS ORDERED: IBUPROFEN 400 MG TABLET ONE (04:04)
--- NOTE | 2021-07-29 04:07 | NUR ---
XRAY AT BEDSIDE
[2021-07-29 04:56] VITALS: BP 158/92
--- NOTE | 2021-07-29 04:56 | NUR ---
Patient discharged to home in stable condition. Written and verbal after care instructions given. Patient verbalizes understanding of instruction.
== END 2021-07-29 04:57 | disposition home or self-care (01) ==
LOC: ER 02:49
DX: S83.8X2A Sprain of other specified parts of left knee, initial encounter (principal); I10 Essential (primary) hypertension; F17.200 Nicotine dependence, unspecified, uncomplicated; Z79.899 Other long term (current) drug therapy; W19.XXXA Unspecified fall, initial encounter; Y93.89 Activity, other specified; Y92.89 Other specified places as the place of occurrence of the external cause; Y99.8 Other external cause status
CPT/HCPCS: 73564-TC

== ENCOUNTER 2021-08-21 21:32 | Emergency (ER) | payer OTHER ==
[~2021-08-21] VITALS: Ht 170.2 cm; Wt 97.5 kg
[2021-08-21 22:15] VITALS: BP 151/82
[2021-08-21] MEDS ORDERED: IBUPROFEN 600 MG TABLET PO ONE (22:30)
[2021-08-21] MEDS ORDERED: ACETAMINOPHEN ES 500 MG TABLET PO ONE (22:30)
[2021-08-21] MEDS ORDERED: ACETAMINOPHEN ES 500 MG TABLET ONE (22:43)
[2021-08-21] MEDS ORDERED: IBUPROFEN 600 MG TABLET ONE (22:44)
== END 2021-08-21 22:52 | disposition home or self-care (01) ==
LOC: ER 21:37
DX: M25.562 Pain in left knee (principal); I10 Essential (primary) hypertension; F17.200 Nicotine dependence, unspecified, uncomplicated; Z79.899 Other long term (current) drug therapy

== ENCOUNTER 2021-10-05 21:44 | Emergency (ER) | payer OTHER ==
[~2021-10-05] VITALS: Ht 170.2 cm; Wt 93.0 kg
--- NOTE | 2021-10-05 22:33 | NUR ---
PT BIBS C/O LEFT KNEE PAIN [id number]. PATIENT ALERT AND ORIENTED X3. AMBULATORY WITH NON LABORED BREATHING.
--- NOTE | 2021-10-05 22:54 | NUR ---
Patient discharged to home in stable condition. Written and verbal after care instructions given. Patient verbalizes understanding of instruction.
[2021-10-05 22:55] VITALS: BP 138/70
== END 2021-10-05 23:02 | disposition home or self-care (01) ==
LOC: ER 21:47
DX: M25.562 Pain in left knee (principal); G40.909 Epilepsy, unspecified, not intractable, without status epilepticus; I10 Essential (primary) hypertension; K86.1 Other chronic pancreatitis; Z79.1 Long term (current) use of non-steroidal anti-inflammatories (NSAID); Z79.899 Other long term (current) drug therapy

== ENCOUNTER 2021-10-12 03:37 | Inpatient (IN) | payer OTHER ==
[~2021-10-12] VITALS: Ht 170.2 cm; Wt 86.2 kg
--- NOTE | 2021-10-12 04:01 | NUR ---
PATIENT BIBS C/O NAUSEA AND VOMITTING. PATIENT ALERT AND ORIENTED X3. AMBULATORY WITH NON LABORED BREATHING. PLACED PT IN BED 12 ON MONITOR AND POX.
[2021-10-12] MEDS ORDERED: ONDANSETRON HCL/PF 4 MG/2 ML VIAL ONE ×3 (04:12→09:18)
--- NOTE | 2021-10-12 04:18 | NUR ---
URINE COLLECTED AND SENT TO LAB
--- NOTE | 2021-10-12 04:18 | NUR ---
LINE ESTABLISHED @ [facility]
--- NOTE | 2021-10-12 04:18 | NUR ---
BLOOD COLLECTED AND SENT TO LAB
[2021-10-12 04:29] LABS: BASOPHILS # (AUTO) 0.1 K/uL (0.0-0.2); BASOPHILS % (AUTO) 0.8 % (0.0-2.0); EOSINOPHILS % (AUTO) 0.3 % (0.0-6.0); HEMATOCRIT 32 % (39-51); HEMOGLOBIN 11.5 g/dL (13.5-17.5); LYMPHOCYTES # (AUTO) 1.2 K/uL (0.8-4.8); LYMPHOCYTES % (AUTO) 13.7 % (20.0-44.0); MEAN CORPUSCULAR HGB CONC 36 g/dl (31.0-36.0); MEAN CORPUSCULAR VOLUME 92 fL (80-96); MONOCYTES # (AUTO) 1.1 K/uL (0.1-1.30); MONOCYTES % (AUTO) 12.1 % (2.0-12.0); NEUTROPHILS # (AUTO) 6.4 K/uL (1.8-8.9); NEUTROPHILS % (AUTO) 73.1 % (43.0-81.0); PLATELET COUNT (AUTO) 209 K/uL (150-450); WHITE BLOOD COUNT (AUTO) 8.8 K/uL (4.3-11.0)
[2021-10-12] MEDS ORDERED: IV NS 0.9% 1,000 ML BAG IV ONE (04:30)
[2021-10-12] MEDS ORDERED: ONDANSETRON HCL/PF 4 MG/2 ML VIAL IVP ONE (04:30)
[2021-10-12 04:55] LABS: BILIRUBIN,URINE SMALL (NEGATIVE); COLOR,URINE YELLOW (YELLOW); LEUKOCYTE ESTERASE ,URINE NEGATIVE (NEGATIVE); NITRITE, URINE NEGATIVE (NEGATIVE); PH,URINE 6.5 (5.0-8.0); PROTEIN,URINE 30 mg/dl (NEGATIVE); UGLUCOSE NEGATIVE (NEGATIVE); UROBILINOGEN,URINE 0.2 EU/dL (0.2)
[2021-10-12 05:01] LABS: ALBUMIN 3.7 g/dL (3.4-5.0); BILIRUBIN,DIRECT 1.6 mg/dL (0.0-0.2); BILIRUBIN,TOTAL 1.7 mg/dL (0.2-1.0); CALCIUM, SERUM 9.9 mg/dL (8.5-10.1); CREATININE 1.7 mg/dL (0.6-1.3); TOTAL PROTEIN, SERUM 7.7 g/dL (6.4-8.2)
[2021-10-12 05:05] LABS: POTASSIUM 2.4 mmol/L (3.5-5.1)
[2021-10-12] MEDS ORDERED: POTASSIUM CL. PREMIX PERIPHER. 100 ML ONE (05:11)
[2021-10-12] MEDS ORDERED: MORPHINE SULFATE INJ 2 MG/ML DISP.SYRIN ONE (05:11)
[2021-10-12] MEDS ORDERED: POTASSIUM CHLORIDE 20 MEQ TAB.PRT.SR PO ONE ×2 (05:12→05:30)
--- NOTE | 2021-10-12 05:28 | NUR ---
SPOKE TO GUILLERMINA, MECHANICAL ESTIMATOR, AND CLINICAL INFO WAS GIVEN OVER THE PHONE. REC'D A VERBAL AUTH TO ADMIT THE PT.
[2021-10-12] MEDS ORDERED: POTASSIUM CHLORIDE 10 MEQ/50 ML PREMIXED IVPB FOR PERIPHERAL LINE IV ONE (05:30)
[2021-10-12] MEDS ORDERED: ONDANSETRON HCL/PF 4 MG/2 ML VIAL IV ONE (05:30)
[2021-10-12] MEDS ORDERED: MORPHINE SULFATE INJ 2 MG/ML DISP.SYRIN IV ONE (05:30)
[2021-10-12 05:33] LABS: BACTERIA,URINE None seen /HPF (None Seen); RBC,URINE 0-2 /HPF (0-2); SQUAMOUS EPITHELIAL CELL,UR Few /HPF (None Seen); WBC,URINE 0-2 /HPF (0-3)
--- NOTE | 2021-10-12 05:42 | NUR ---
PER MOM, PATIENT IS TO CALL HER WHEN READY FOR DISCHARGE SINCE SHE HAS TO GO TO WORK.
--- NOTE | 2021-10-12 05:43 | NUR ---
COVID SWAB DONE AND SENT TO LAB
[2021-10-12] MEDS ORDERED: POTASSIUM CL. PREMIX PERIPHER. 50 ML ONE ×2 (07:08)
--- NOTE | 2021-10-12 07:18 | NUR ---
RECEIVED REPORT FROM ALETA DUNLAP FOR COSTA. PT IS AAOX4, NOT IN RESPIRATORY DISTRESS, V/S STABLE, KEPT RESTED AND COMFORTABLE. WILL CONTINUE TO MONITOR.
--- NOTE | 2021-10-12 07:18 | NUR ---
REPORT GIVEN TO ALETA HIDALGO
--- NOTE | 2021-10-12 07:21 | NUR ---
PT IS WHEELED TO CT SCAN VIA [facility].
--- NOTE | 2021-10-12 07:43 | NUR ---
STARTED LAST BAG OF POTASSIUM 50MEQ IV ENDORSED BY ALETA DUNLAP.
[2021-10-12] MEDS ORDERED: PANT40TA49 PO (07:47)
[2021-10-12] MEDS ORDERED: MAGN400T26 PO (07:47)
[2021-10-12] MEDS ORDERED: THIA100T88 PO (07:47)
[2021-10-12] MEDS ORDERED: MULT-981 PO (07:47)
[2021-10-12] MEDS ORDERED: ASCO500T23 PO (07:47)
[2021-10-12] MEDS ORDERED: LORAZEPAM INJ 2 MG/ML VIAL IV STA (07:48)
[2021-10-12] MEDS ORDERED: LORAZEPAM INJ 2 MG/ML VIAL ONE ×2 (07:50→13:28)
--- NOTE | 2021-10-12 08:20 | NUR ---
[facility] CALLED PIE ICER MACHINE PAGED.
--- NOTE | 2021-10-12 08:43 | NUR ---
POTASSIUM 10MEQ IV ENDTIME AND WELL TOLERATED BY THE PT
[2021-10-12] MEDS ORDERED: IV NS 0.9% 2,000 ML IV ONE (09:00)
--- NOTE | 2021-10-12 09:02 | NUR ---
AGAIN CALLED [employer], HACKSAW INSPECTOR PAGED.
[2021-10-12] MEDS ORDERED: MORPHINE SULFATE INJ 4 MG/ML DISP.SYRIN ONE (09:18)
[2021-10-12] MEDS ORDERED: MORPHINE SULFATE INJ 4 MG/ML DISP.SYRIN IV PRN (09:30)
[2021-10-12] MEDS ORDERED: ONDANSETRON HCL/PF 4 MG/2 ML VIAL IV PRN (09:30)
[2021-10-12] MEDS ORDERED: Z GUARD REMEDY 4 OZ OINT TP PRN (10:00)
[2021-10-12] MEDS ORDERED: ACETAMINOPHEN 325 MG TABLET PO PRN (10:00)
[2021-10-12] MEDS ORDERED: MAG HYDROX/AL HYDROX/SIMETH 30 ML UDC PO PRN (10:00)
[2021-10-12] MEDS ORDERED: ONDANSETRON HCL/PF 4 MG/2 ML VIAL IVP PRN (10:00)
[2021-10-12] MEDS ORDERED: MAGNESIUM HYDROXIDE 30 ML UDC PO PRN (10:00)
[2021-10-12] MEDS: IV NS 0.9% 1,000 ML IV PRN ×2 (10:54→22:16)
[2021-10-12] MEDS: Thiamine 100 MG in IV D5W 50 ML IV SCH (11:14)
[2021-10-12] MEDS: LORAZEPAM INJ 2 MG/ML VIAL IV PRN (13:32)
--- NOTE | 2021-10-12 19:22 | NUR ---
BED ASSIGNMENT: 314-2
--- NOTE | 2021-10-12 20:00 | NUR ---
TRIED TO GIVE REPORT, NURSE SAYS WILL CALL BACK
--- NOTE | 2021-10-12 20:30 | NUR ---
CALLED TO GIVE REPORT, NURSE BUSY. WILL CALL BACK
--- NOTE | 2021-10-12 21:34 | NUR ---
REPORT GIVEN TO [facility] NURSE
[2021-10-12 21:40] VITALS: BP 107/52
--- NOTE | 2021-10-12 21:45 | NUR ---
MS RN NOTES RECEIVED FROM ER PER NANETTE THIS 36 Y.O. MALE,ALERT,ORIENTED X4, CHIEF COMPLAINTS OF ABDOMINAL PAIN X 1 DAY,DX ACUTE PANCREATITIS,ABLE TO AMBULATE WITH STEADY GAIT,SALINE LOCK LEFT AC INTACT AND PATENT.NO SKIN ISSUES.ORIENTED TO ROOM SET UP,CALL LIGHT IN REACH,NEEDS ANTICIPATED.
[2021-10-12 22:00] VITALS: BP 156/97
--- NOTE | 2021-10-12 22:01 | NUR ---
PATIENT TRANSFERRED, VSS, NO ACUTE DISTRESS NOTED.
--- NOTE | 2021-10-12 22:16 | NUR ---
MS RN NOTES STARTED ON IVF NS AT 150ML/HR RATE,INFUSING VIA IV PUMP ON LEFT AC SALINE LOCK
[2021-10-12] MEDS: MORPHINE SULFATE INJ 2 MG/ML DISP.SYRIN IV PRN (22:19)
--- NOTE | 2021-10-12 22:19 | NUR ---
MS RN NOTES PAIN MANAGEMENT C/O CHEST PAIN,MORPHINE 1MG IV GIVEN ORDERED,AND PUT ON O2 2L.NC TO KEEP O2 SAT ABOVE 90%.
[2021-10-13] MEDS: LORAZEPAM INJ 2 MG/ML VIAL IV PRN ×4 (01:19→21:39)
--- NOTE | 2021-10-13 01:19 | NUR ---
MS RN NOTES FEELING ANXIOUS,ATIVAN 2MG IV GIVEN ORDERED.
[2021-10-13] MEDS: MORPHINE SULFATE INJ 2 MG/ML DISP.SYRIN IV PRN ×4 (06:27→23:56)
--- NOTE | 2021-10-13 06:27 | NUR ---
MS RN NOTES PAIN MANAGEMENT C/O ABDOMINAL PAIN 8/10 ON GRACIE SCALE,MORPHINE 1MG IV GIVEN ORDERED.
--- NOTE | 2021-10-13 06:36 | NUR ---
MS RN NOTES STILL WITH ON AND OFF ABDOMINAL PAIN,MANAGE WITH MORPHINE.IVF INFUSING WELL ON LEFT AC SALINE LOCK.,KEPT NPO EXCEPT ICE CHIPS.IN NO ACUTE DISTRESS.CALL LIGHT IN REACH,NEEDS ATTENDED.
[2021-10-13 06:50] LABS: BASOPHILS % (AUTO) 0.6 % (0.0-2.0); EOSINOPHILS % (AUTO) 0.9 % (0.0-6.0); HEMATOCRIT 28 % (39-51); HEMOGLOBIN 9.5 g/dL (13.5-17.5); LYMPHOCYTES # (AUTO) 0.8 K/uL (0.8-4.8); LYMPHOCYTES % (AUTO) 19.8 % (20.0-44.0); MEAN CORPUSCULAR HGB CONC 35 g/dl (31.0-36.0); MEAN CORPUSCULAR VOLUME 94 fL (80-96); MONOCYTES # (AUTO) 0.6 K/uL (0.1-1.30); MONOCYTES % (AUTO) 14.8 % (2.0-12.0); NEUTROPHILS # (AUTO) 2.7 K/uL (1.8-8.9); NEUTROPHILS % (AUTO) 63.9 % (43.0-81.0); RED BLOOD CELL COUNT(AUTO) 2.93 MIL/uL (4.5-6.0); WHITE BLOOD COUNT (AUTO) 4.2 K/uL (4.3-11.0)
[2021-10-13 07:00] LABS: THYROID STIMULATING HORMONE 0.072 uIU/mL (0.358-3.74)
--- NOTE | 2021-10-13 07:25 | NUR ---
MS RN OPENING NOTES RECEIVED PATIENT THIS MORNING RESTING IN BED EYES CLOSED, AROUSABLE BY NAME OR TOUCH TO A/O X 4. ABLE TO AMBULATE WITH STEADY GAIT. TOLERATING ROOM AIR WELL WITH NO SIGNS OF DISTRESS AT THIS TIME. L AC 20 G IV LINE PATENT AND FLUSHING WELL, NO S/S OF INFECTION OR INFILTRATION. VELEZ CATHETER DRAINING CLEAR YELLOW URINE. SAFETY MEASURES IN PLACE: BED IN LOWEST LOCKED POSITION, CALL LIGHT WITHIN REACH. WILL CONTINUE TO MONITOR.
[2021-10-13 08:00] VITALS: BP 166/92
[2021-10-13] MEDS: PANTOPRAZOLE 40 MG VIAL IV SCH (08:27)
[2021-10-13] MEDS: FOLIC ACID 1 MG TABLET PO SCH (08:40)
[2021-10-13 09:26] LABS: CALCIUM, SERUM 7.9 mg/dL (8.5-10.1); CREATININE 0.9 mg/dL (0.6-1.3); PHOSPHORUS 1.4 mg/dL (2.5-4.9); POTASSIUM 2.9 mmol/L (3.5-5.1)
[2021-10-13 09:39] LABS: MAGNESIUM 0.8 mg/dL (1.8-2.4)
--- NOTE | 2021-10-13 09:45 | NUR ---
RN NOTES PATIENT NOTED TO HAVE ANXIETY AND REQUESTED ANTI-ANXIETY MEDICATION, PRESCRIBED ATIVAN IV MEDICATION ADMINISTERED.
--- NOTE | 2021-10-13 10:13 | NUR ---
RN NOTES RECEIVED CALL FROM CULLET WASHER VERA REGARDING PT WITH CRITICAL MG 0.8, KILN LABOURER ANNA MADE AWARE AND ORDERED MG 1/100ML X 4BAGS AND REPEAT MG LEVEL THIS AFTERNOON.
[2021-10-13] MEDS: POTASSIUM CL. PREMIX PERIPHER. 50 ML IV SCH ×6 (10:24→16:42)
[2021-10-13] MEDS: Magnesium 1GM/D5W 100ML PREMIX 100 ML IV SCH ×4 (10:24→13:34)
[2021-10-13] MEDS: Thiamine 100 MG in IV D5W 50 ML IV SCH (11:31)
[2021-10-13 12:12] LABS: PLATELET COUNT (AUTO) 92 K/uL (150-450)
--- NOTE | 2021-10-13 12:24 | NUR ---
RN NOTES PT C/O LEFT LOWER ABDOMEN PAIN. 10/10 SCALE. PRN MORPHINE 1MG/0.5ML IVP ADMINISTERED AT 1219. WILL CONTINUE TOP MONITOR AND REASSESS PT.
[2021-10-13] MEDS: IV NS 0.9% 1,000 ML IV PRN (13:47)
--- NOTE | 2021-10-13 13:50 | NUR ---
RN NOTES PATIENT NOTED TO HAVE ANXIETY AT THIS TIME AND REQUESTED ANTI-ANXIETY MEDICATION, PRESCRIBED 1 MG ATIVAN ADMINISTERED AT THIS TIME. WILL CONTINUE TO MONITOR FOR ANXIETY SYMPTOMS
[2021-10-13 16:00] VITALS: BP 151/82
[2021-10-13] MEDS ORDERED: Sodium Phosphate 15 MMOL in IV NS 0.9% 250 ML IV ONE (16:00)
--- NOTE | 2021-10-13 18:50 | NUR ---
MS RIVER CLOSING NOTES PATIENT RESTING SEMI-FOWLERS IN BED, A/O X 4. ABLE TO AMBULATE WITH STEADY GAIT. TOLERATING ROOM AIR WELL WITH NO SIGNS OF DISTRESS AT THIS TIME. L AC 20 G IV LINE PATENT AND FLUSHING WELL, NO S/S OF INFECTION OR INFILTRATION. VELEZ CATHETER DRAINING CLEAR YELLOW URINE. SAFETY MEASURES IN PLACE: BED IN LOWEST LOCKED POSITION, CALL LIGHT WITHIN REACH. WILL CONTINUE TO MONITOR. Addendum: 10/13/21 at 1851 by MI ORSADO RN WILL ENDORSE TO SERVICE STATION OPERATOR FOR COSTA.
--- NOTE | 2021-10-13 19:12 | NUR ---
PATIENT NOTED TO HAVE 8/10 LOWER BACK PAIN AND REQUESTED PAIN MEDICATION. 1 MG PRESCRIBED MORPHINE IVP ADMINISTERED AT THIS TIME. WILL ENDORSE TO BRAKE COUPLER DINKEY TO CONTINUE TO MONITOR FOR S/S OF PAIN.
[2021-10-13 23:03] VITALS: BP 156/97
[2021-10-14] MEDS: LORAZEPAM INJ 2 MG/ML VIAL IV PRN ×3 (03:01→23:14)
--- NOTE | 2021-10-14 03:11 | NUR ---
RN NOTES COMPLAINED OF FEELING ANXIOUS- ATIVAN 2 MG IV GIVEN ORDERED, V/S STABLE
[2021-10-14] MEDS: MORPHINE SULFATE INJ 2 MG/ML DISP.SYRIN IV PRN ×4 (05:39→20:03)
--- NOTE | 2021-10-14 06:12 | NUR ---
MS RN NOTES AWAKE & RESPONSIVE. NOT IN ANY DISTRESS. NO SOB NOTED. DENIES ANY PAIN OR DISCOMFORT AT THIS TIME. WITH IV-HL PATENT & INTACT. AM CARE DONE. MONITORED ACCORDINGLY. CALL LIGHT WITHIN REACH. BED IN LOWEST POSITION. SR UP X 2 FOR SAFETY. WILL ENDORSE TO NEXT SHIFT.
--- NOTE | 2021-10-14 07:11 | NUR ---
MS RN OPENING NOTES PATIENT RESTING SEMI-FOWLERS IN BED, AROUSABLE VIA TOUCH OR VOICE TO A/O X 4. ABLE TO AMBULATE WITH STEADY GAIT. TOLERATING ROOM AIR WELL WITH NO SIGNS OF DISTRESS AT THIS TIME. L AC 20 G IV LINE PATENT AND FLUSHING WELL, NO S/S OF INFECTION OR INFILTRATION. VELEZ CATHETER DRAINING CLEAR YELLOW URINE. SAFETY MEASURES IN PLACE: BED IN LOWEST LOCKED POSITION, CALL LIGHT WITHIN REACH. WILL CONTINUE TO MONITOR.
[2021-10-14 07:18] LABS: BASOPHILS % (AUTO) 0.6 % (0.0-2.0); EOSINOPHILS % (AUTO) 1.1 % (0.0-6.0); HEMATOCRIT 28 % (39-51); HEMOGLOBIN 9.6 g/dL (13.5-17.5); LYMPHOCYTES # (AUTO) 0.9 K/uL (0.8-4.8); LYMPHOCYTES % (AUTO) 16.7 % (20.0-44.0); MEAN CORPUSCULAR HGB CONC 34 g/dl (31.0-36.0); MEAN CORPUSCULAR VOLUME 95 fL (80-96); MONOCYTES # (AUTO) 0.7 K/uL (0.1-1.30); MONOCYTES % (AUTO) 12.2 % (2.0-12.0); NEUTROPHILS # (AUTO) 3.8 K/uL (1.8-8.9); NEUTROPHILS % (AUTO) 69.4 % (43.0-81.0); PLATELET COUNT (AUTO) 96 K/uL (150-450); RED BLOOD CELL COUNT(AUTO) 2.93 MIL/uL (4.5-6.0); WHITE BLOOD COUNT (AUTO) 5.5 K/uL (4.3-11.0)
[2021-10-14 08:00] VITALS: BP 117/76
[2021-10-14 08:25] LABS: CALCIUM, SERUM 7.9 mg/dL (8.5-10.1); CREATININE 0.8 mg/dL (0.6-1.3); PHOSPHORUS 1.3 mg/dL (2.5-4.9); POTASSIUM 3.5 mmol/L (3.5-5.1)
[2021-10-14] MEDS: PANTOPRAZOLE 40 MG VIAL IV SCH (08:34)
[2021-10-14] MEDS: FOLIC ACID 1 MG TABLET PO SCH (08:41)
[2021-10-14 09:00] LABS: MAGNESIUM 1.2 mg/dL (1.8-2.4)
[2021-10-14 09:04] LABS: ALBUMIN 2.9 g/dL (3.4-5.0); BILIRUBIN,DIRECT 1.6 mg/dL (0.0-0.2); TOTAL PROTEIN, SERUM 6.2 g/dL (6.4-8.2)
--- NOTE | 2021-10-14 09:26 | NUR ---
MS RN NOTES RECEIVED REPORT OF CRITICAL MG LEVEL OF 1.2 FROM FALGUNI IN LAB, MESSAGED AVINASH PERRY WHO ORDERED 2 MILLIGRAMS MAGNESIUM IV X 1. MEDICATION ADMINISTERED ORDERED.
[2021-10-14] MEDS: Magnesium 1GM/D5W 100ML PREMIX 100 ML IV SCH ×2 (09:59→11:01)
[2021-10-14] MEDS ORDERED: Magnesium 1GM/D5W 100ML PREMIX PIGGYBACK IV ONE (10:00)
--- NOTE | 2021-10-14 10:04 | NUR ---
MS RN NOTES PATIENT NOTED TO HAVE 8/10 ACHING LOWER BACK PAIN AND REQUESTED PAIN MEDICATION. 1 MG MORPHINE IVP GIVEN AT 0956. WILL CONTINUE TO MONITOR FOR S/S OF PAIN.
[2021-10-14] MEDS: Thiamine 100 MG in IV D5W 50 ML IV SCH (11:01)
[2021-10-14] MEDS ORDERED: Sodium Phosphate 30 MMOL in IV NS 0.9% 250 ML IV SCH (12:00)
--- NOTE | 2021-10-14 15:23 | NUR ---
NM: HIDA SCAN WAS COMPLETED. TECH:RB.
--- NOTE | 2021-10-14 15:23 | NUR ---
MS RN NOTES PATIENT NOTED TO HAVE 8/10 ACHING LOWER BACK PAIN AND REQUESTED PAIN MEDICATION AT THIS TIME. PRESCRIBED MORPHINE 1 MG IVP GIVEN, WILL CONTINUE TO MONITOR FOR S/S OF PAIN.
[2021-10-14 16:00] VITALS: BP 148/96
--- NOTE | 2021-10-14 17:54 | NUR ---
RN NOTES PT PICKED-UP VIA WHEELCHAIR BY NEIL LOPEZ FOR MRCP.
--- NOTE | 2021-10-14 18:36 | NUR ---
RN NOTES PT RETURNED FROM [facility]. PT IS ASKING IF HE CAN HAVE JELLO OR DRINK, AVINASH PERRY MADE AWARE WITH ORDER TO PLACE PT ON CLEAR LIQUIDS DIET WHILE HIDA SCAN AND MRCP RESULTS PENDING.
--- NOTE | 2021-10-14 18:51 | NUR ---
MS RN NOTES PATIENT NOTED WITH ANXIETY AT THIS TIME AND REQUESTED ANTI-ANXIETY MEDICATIONS. PRESCRIBED ATIVAN 1 MG IVP GIVEN PRESCRIBED, WILL ENDORSE TO COSTA FOR CONTINUED MONITORING OF ANXIETY.
--- NOTE | 2021-10-14 19:10 | NUR ---
MS RN CLOSING NOTES PATIENT RESTING SEMI-FOWLERS IN BED, A/O X 4. ABLE TO AMBULATE WITH STEADY GAIT. TOLERATING ROOM AIR WELL WITH NO SIGNS OF DISTRESS AT THIS TIME. L AC 20 G IV LINE PATENT AND FLUSHING WELL, NO S/S OF INFECTION OR INFILTRATION. R AC 20 G IV LINE ALSO PATENT AND FLUSHING WELL, NO S/S OF INFECTION OR INFILTRATION. SAFETY MEASURES IN PLACE: BED IN LOWEST LOCKED POSITION, SIDE RAILS UP X 2, CALL LIGHT WITHIN REACH. WILL ENDORSE TO FACULTY I ON CALL MEDICAL ASSISTANT FOR COSTA.
[2021-10-14 20:00] VITALS: BP 135/89
[2021-10-14] MEDS: IV NS 0.9% 1,000 ML IV PRN (20:05)
[2021-10-15] MEDS: LORAZEPAM INJ 2 MG/ML VIAL IV PRN (03:20)
[2021-10-15] MEDS: IV NS 0.9% 1,000 ML IV PRN (05:31)
[2021-10-15] MEDS: MORPHINE SULFATE INJ 2 MG/ML DISP.SYRIN IV PRN ×2 (05:54→10:18)
[2021-10-15 06:36] LABS: BASOPHILS % (AUTO) 0.8 % (0.0-2.0); EOSINOPHILS % (AUTO) 1.2 % (0.0-6.0); HEMATOCRIT 27 % (39-51); HEMOGLOBIN 9.5 g/dL (13.5-17.5); LYMPHOCYTES # (AUTO) 0.9 K/uL (0.8-4.8); LYMPHOCYTES % (AUTO) 15.3 % (20.0-44.0); MEAN CORPUSCULAR HGB CONC 35 g/dl (31.0-36.0); MEAN CORPUSCULAR VOLUME 95 fL (80-96); MONOCYTES # (AUTO) 0.7 K/uL (0.1-1.30); MONOCYTES % (AUTO) 13.3 % (2.0-12.0); NEUTROPHILS # (AUTO) 3.9 K/uL (1.8-8.9); NEUTROPHILS % (AUTO) 69.4 % (43.0-81.0); PLATELET COUNT (AUTO) 101 K/uL (150-450); RED BLOOD CELL COUNT(AUTO) 2.89 MIL/uL (4.5-6.0); WHITE BLOOD COUNT (AUTO) 5.6 K/uL (4.3-11.0)
--- NOTE | 2021-10-15 06:45 | NUR ---
RN NOTES: PATIENT RESTING IN BED. NO S/SX OF RESPIRATORY DISTRESS NOTED THROUGHOUT SHIFT AND NO CHANGE OF CONDITION NOTED. SAFETY MEASURES IN PLACE: BED IN LOWEST POSITION, WHEELS LOCKED, SIDE RAILS UP X2, CALL LIGHT WITHIN REACH. WILL ENDORSE TO THE DAY SHIFT NURSE FOR CONTINUITY OF CARE.
[2021-10-15 07:01] LABS: ALBUMIN 2.7 g/dL (3.4-5.0); BILIRUBIN,DIRECT 1.6 mg/dL (0.0-0.2); BILIRUBIN,TOTAL 1.8 mg/dL (0.2-1.0)
--- NOTE | 2021-10-15 07:35 | NUR ---
RN OPENING NOTES RECEIVED PATIENT RESTING IN BED WITH EYES CLOSED, ABLE TO BE WAKEN, A/O X4. TOLERATING ROOM AIR WELL WITH NO S/SX OF DISTRESS NOTED. NO PAIN VERBALIZED AT THIS TIME. L HAND G#22 IV LINE INTACT AND PATENT. SAFETY MEASURES IN PLACE: BED IN LOWEST LOCKED POSITION, SIDE RAILS UP X2, CALL LIGHT WITHIN REACH. WILL CONTINUE TO MONITOR PATIENT
[2021-10-15 08:00] VITALS: BP 135/74
[2021-10-15 08:24] LABS: CALCIUM, SERUM 7.2 mg/dL (8.5-10.1); CREATININE 0.8 mg/dL (0.6-1.3); PHOSPHORUS 1.4 mg/dL (2.5-4.9); POTASSIUM 3.3 mmol/L (3.5-5.1)
[2021-10-15] MEDS: PANTOPRAZOLE 40 MG VIAL IV SCH (08:41)
[2021-10-15] MEDS: FOLIC ACID 1 MG TABLET PO SCH (08:41)
[2021-10-15] MEDS: THIAMINE HCL 100 MG TABLET PO SCH ×2 (08:41→08:42)
[2021-10-15 08:43] LABS: MAGNESIUM 1.1 mg/dL (1.8-2.4)
[2021-10-15] MEDS ORDERED: POTASSIUM CL. PREMIX PERIPHER. 50 ML IV SCH (10:00)
[2021-10-15] MEDS ORDERED: Sodium Phosphate 30 MMOL in IV NS 0.9% 250 ML IV SCH (10:00)
[2021-10-15] MEDS: Magnesium 1GM/D5W 100ML PREMIX 100 ML IV SCH ×3 (11:00→12:00)
--- NOTE | 2021-10-15 13:50 | NUR ---
RN NOTES 1100 AND 1200 MAGNESIUM IVPB BAGS WERE HELD PER MD ORDER. DR. ANNA PERRY CHANGED ROUTE ORDER FROM IV TO PO ROUTE. OVER THE PHONE ORDER OF MAGNESIUM OXIDE 400MG PO ONE TIME WAS ORDERED AND READ BACK. WILL CARRY OUT NEW ORDERS AND MONITOR PATIENT.
[2021-10-15] MEDS ORDERED: MAGNESIUM OXIDE 400 MG TABLET PO SCH (14:00)
[2021-10-15 16:00] VITALS: BP 139/92
--- NOTE | 2021-10-15 18:20 | NUR ---
PERSONAL SECRETARY NOTES PATIENT IS CLEAR BY OVERWEAVER, ANNA PERRY FOR D/C. V/S WNL. PATIENT WAS EDUCATED ON DISCHARGE INSTRUCTIONS. EXIT CARE PACKET WAS PROVIDED TO PATIENT. PATIENT VERBALIZED UNDERSTANDING OF HEALTH AND FOLLOW UP RECOMMENDATIONS. ALL FORMS SIGNED AND BELONGINGS ACCOUNTED FOR. ALL IV ACCESS AND ID BAND REMOVED. PATIENT LEFT FACILITY VIA PRIVATE CAR ACCOMPANIED BY MOTHER.
[2021-10-16] MEDS ORDERED: PANTOPRAZOLE 40 MG TABLET.DR PO SCH (07:30)
== END 2021-10-15 18:20 | disposition home or self-care (01) | DRG 282 ==
LOC: ER 03:42 → TRANSITION 05:31 → TELE 20:58 → MED 10-13 02:35
PROVIDERS: ADMIT Registered Nurse; ATTEND Registered Nurse
DX: K85.20 Alcohol induced acute pancreatitis without necrosis or infection (principal); E87.2 Acidosis; D69.6 Thrombocytopenia, unspecified; E83.39 Other disorders of phosphorus metabolism; M87.9 Osteonecrosis, unspecified; K70.30 Alcoholic cirrhosis of liver without ascites; F10.239 Alcohol dependence with withdrawal, unspecified; E87.1 Hypo-osmolality and hyponatremia; E87.6 Hypokalemia; I10 Essential (primary) hypertension; Z20.822 Contact with and (suspected) exposure to COVID-19; Z79.899 Other long term (current) drug therapy; F15.10 Other stimulant abuse, uncomplicated; E80.6 Other disorders of bilirubin metabolism; Z72.0 Tobacco use; E66.9 Obesity, unspecified; Z68.31 Body mass index [BMI] 31.0-31.9, adult; E83.42 Hypomagnesemia; R00.0 Tachycardia, unspecified; R74.01 Elevation of levels of liver transaminase levels
CPT/HCPCS: 36415; 74181-TC; 76700-TC; 78226; 80048-TC; 80076-TC; 81001; 83690-TC; 83735-TC; 84100-TC; 84436-TC; 84443-TC; 85025-TC; 87040-TC; 87081-TC; A9537; A9563; C9113; G0378; J2060; J2270; J2405; J3411; J3475; J3480; J7030; J7050; J7060

== ENCOUNTER 2021-10-18 22:10 | Inpatient (IN) | payer OTHER ==
[~2021-10-18] VITALS: Ht 171.4 cm; Wt 97.1 kg
[2021-10-18] MEDS: ENOXAPARIN SODIUM 40 MG/0.4 ML DISP.SYRIN SQ SCH (04:20)
[~2021-10-18 22:10] MED LIST changes: +ASCO500T23 PO; -BACI30OI9 TP; -CEPH500T PO; -IBUP-1955 PO; +MAGN400T26 PO; +MULT-981 PO; +PANT40TA49 PO; +THIA100T88 PO
[2021-10-18] MEDS ORDERED: LORAZEPAM INJ 2 MG/ML VIAL ONE (22:41)
[2021-10-18] MEDS ORDERED: LEVETIRACETAM (500MG) 500 MG/5 ML VIAL IV ONE (22:41)
[2021-10-18 22:46] LABS: BASOPHILS # (AUTO) 0.1 K/uL (0.0-0.2); BASOPHILS % (AUTO) 0.9 % (0.0-2.0); EOSINOPHILS % (AUTO) 1.1 % (0.0-6.0); HEMATOCRIT 29 % (39-51); HEMOGLOBIN 9.9 g/dL (13.5-17.5); LYMPHOCYTES # (AUTO) 0.9 K/uL (0.8-4.8); LYMPHOCYTES % (AUTO) 15.3 % (20.0-44.0); MEAN CORPUSCULAR HGB CONC 34 g/dl (31.0-36.0); MEAN CORPUSCULAR VOLUME 96 fL (80-96); MONOCYTES # (AUTO) 0.7 K/uL (0.1-1.30); MONOCYTES % (AUTO) 12.1 % (2.0-12.0); NEUTROPHILS # (AUTO) 4.3 K/uL (1.8-8.9); NEUTROPHILS % (AUTO) 70.6 % (43.0-81.0); PLATELET COUNT (AUTO) 182 K/uL (150-450); RED BLOOD CELL COUNT(AUTO) 3.04 MIL/uL (4.5-6.0)
[2021-10-18] MEDS ORDERED: LORAZEPAM INJ 2 MG/ML VIAL IVP ONE (23:00)
[2021-10-18] MEDS ORDERED: LEVETIRACETAM (500MG) 500 MG in IV NS 0.9% 100 ML IV ONE (23:00)
[2021-10-18] MEDS ORDERED: IV NS 0.9% 1,000 ML BAG IV ONE (23:00)
[2021-10-18 23:15] LABS: ALANINE AMINOTRANSFERASE 30 U/L (12-78); ALBUMIN 3.1 g/dL (3.4-5.0); ALCOHOL, BLOOD < 3 mg/dL (0-0); ALKALINE PHOSPHATASE 204 U/L (46-116); ASPARTATE AMINOTRANSFERASE 66 U/L (15-37); BILIRUBIN,DIRECT 1.8 mg/dL (0.0-0.2); BILIRUBIN,TOTAL 2.3 mg/dL (0.2-1.0); CALCIUM, SERUM 7.3 mg/dL (8.5-10.1); CARBON DIOXIDE 18 mmol/L (21-32); CHLORIDE 87 mmol/L (98-107); CREATININE 0.9 mg/dL (0.6-1.3); GLUCOSE 112 mg/dL (74-106); POTASSIUM 3.9 mmol/L (3.5-5.1); UREA NITROGEN, BLOOD 4 mg/dL (7-18)
[2021-10-18 23:26] LABS: SODIUM SERUM 117 mmol/L (136-145)
[2021-10-18] MEDS ORDERED: ONDANSETRON HCL/PF 4 MG/2 ML VIAL IVP PRN (23:30)
[2021-10-18] MEDS ORDERED: IV D5 LR 1,000 ML IV SCH (23:30)
[2021-10-18] MEDS ORDERED: MAG HYDROX/AL HYDROX/SIMETH 30 ML UDC PO PRN (23:30)
[2021-10-18] MEDS ORDERED: ACETAMINOPHEN 325 MG TABLET PO PRN (23:30)
[2021-10-18 23:48] LABS: C-REACTIVE PROTEIN 3.2 mg/dL (0.0-0.9)
[2021-10-19] MEDS ORDERED: SODIUM BICARBONATE SYR 50 MEQ/50 ML DISP.SYRIN IV ONE
--- NOTE | 2021-10-19 00:20 | NUR ---
CLININCAL INFO GIVEN TO SERENE CARRASQUILLO
--- NOTE | 2021-10-19 00:25 | NUR ---
URINE SENT TO LAB
[2021-10-19 00:40] LABS: ABG BASE EXCESS -6.2 mmol/L; ABG PCO2 23.7 mmHg (35.0-45.0); ABG PH 7.457 (7.350-7.450); ABG PO2 98.9 mmHg (75.0-100.0); COHb 0.2 % (0.5-1.5); MetHb 0.3 % (0.0-1.5); O2Hb 97.1 % (94.0-97.0); SITE, ABG Right Radial; VENT MODE, BG ROOM AIR
[2021-10-19] MEDS ORDERED: CHLORDIAZEPOXIDE HCL 25 MG CAPSULE PO ONE (02:00)
[2021-10-19] MEDS ORDERED: SODIUM BICARBONATE SYR 50 MEQ/50 ML DISP.SYRIN ONE (04:17)
[2021-10-19] MEDS ORDERED: ENOXAPARIN SODIUM 40 MG/0.4 ML DISP.SYRIN SQ ONE (04:17)
[2021-10-19] MEDS ORDERED: CHLORDIAZEPOXIDE HCL 25 MG CAPSULE ONE ×2 (04:18→09:53)
[2021-10-19 04:23] LABS: BASOPHILS # (AUTO) 0.1 K/uL (0.0-0.2); BASOPHILS % (AUTO) 1.3 % (0.0-2.0); EOSINOPHILS % (AUTO) 1.1 % (0.0-6.0); HEMATOCRIT 27 % (39-51); HEMOGLOBIN 9.4 g/dL (13.5-17.5); LYMPHOCYTES # (AUTO) 0.7 K/uL (0.8-4.8); MEAN CORPUSCULAR HGB CONC 34 g/dl (31.0-36.0); MEAN CORPUSCULAR VOLUME 95 fL (80-96); MONOCYTES # (AUTO) 0.7 K/uL (0.1-1.30); MONOCYTES % (AUTO) 13.7 % (2.0-12.0); NEUTROPHILS # (AUTO) 3.7 K/uL (1.8-8.9); NEUTROPHILS % (AUTO) 69.9 % (43.0-81.0); PLATELET COUNT (AUTO) 174 K/uL (150-450); RED BLOOD CELL COUNT(AUTO) 2.89 MIL/uL (4.5-6.0); WHITE BLOOD COUNT (AUTO) 5.3 K/uL (4.3-11.0)
[2021-10-19 04:38] LABS: ALBUMIN 2.8 g/dL (3.4-5.0); BILIRUBIN,TOTAL 2.2 mg/dL (0.2-1.0); CALCIUM, SERUM 7.2 mg/dL (8.5-10.1); CREATININE 0.7 mg/dL (0.6-1.3); PHOSPHORUS 1.7 mg/dL (2.5-4.9); POTASSIUM 3.8 mmol/L (3.5-5.1); TOTAL PROTEIN, SERUM 6.1 g/dL (6.4-8.2)
[2021-10-19 04:51] LABS: MAGNESIUM 0.8 mg/dL (1.8-2.4)
--- NOTE | 2021-10-19 05:00 | NUR ---
CRITICAL LOW MG LEVEL WAS RELAYED TO DR NAGY W/ NEW ORDER. NOTED
[2021-10-19] MEDS ORDERED: MAGNESIUM OXIDE 400 MG TABLET ONE ×2 (05:11→09:53)
[2021-10-19] MEDS: MAGNESIUM OXIDE 400 MG TABLET PO SCH ×4 (05:13→17:19)
[2021-10-19] MEDS: LEVETIRACETAM (500MG) 500 MG in IV NS 0.9% 100 ML IV SCH ×2 (07:02→17:20)
[2021-10-19] MEDS: MORPHINE SULFATE INJ 2 MG/ML DISP.SYRIN IV PRN ×2 (07:12→13:23)
[2021-10-19] MEDS ORDERED: NEUTRA PHOS 1 POWD.PACKET PO ONE (08:00)
[2021-10-19] MEDS ORDERED: Magnesium 1GM/D5W 100ML PREMIX 100 ML IV ONE ×3 (08:02→10:54)
[2021-10-19] MEDS: Magnesium 1GM/D5W 100ML PREMIX 100 ML IV SCH ×3 (08:08→10:55)
[2021-10-19] MEDS ORDERED: MULTIVIT W/MINERALS 1 TAB TABLET ONE (09:53)
[2021-10-19] MEDS ORDERED: AMLODIPINE BESYLATE 10 MG TABLET ONE (09:54)
[2021-10-19] MEDS ORDERED: PANTOPRAZOLE 40 MG TABLET.DR PO ONE (09:54)
[2021-10-19] MEDS ORDERED: ASCORBIC ACID 500 MG TABLET ONE (09:54)
[2021-10-19] MEDS ORDERED: THIAMINE HCL 100 MG TABLET ONE (09:55)
[2021-10-19] MEDS: AMLODIPINE BESYLATE 10 MG TABLET PO SCH (09:58)
[2021-10-19] MEDS: CHLORDIAZEPOXIDE HCL 25 MG CAPSULE PO SCH ×3 (09:58→17:34)
[2021-10-19] MEDS: ASCORBIC ACID 500 MG TABLET PO SCH (09:58)
[2021-10-19] MEDS: THIAMINE HCL 100 MG TABLET PO SCH (09:58)
[2021-10-19] MEDS: LISINOPRIL (20MG) 20 MG TABLET PO SCH (09:58)
[2021-10-19] MEDS: MULTIVIT W/MINERALS 1 TAB TABLET PO SCH (09:58)
[2021-10-19] MEDS: PANTOPRAZOLE 40 MG TABLET.DR PO SCH ×2 (09:58→21:08)
--- NOTE | 2021-10-19 10:08 | NUR ---
KRISTAN SISTER [phone]
--- NOTE | 2021-10-19 10:16 | NUR ---
[facility] DELAYED, PT PREFER PILL FORM. CALLED PHARMACY AND STATED THAT THEY NEEDED THE ORDER TO BE CHANGED. AWAITING ADMITTING ORDERS.
--- NOTE | 2021-10-19 10:54 | NUR ---
GOT BED 109
--- NOTE | 2021-10-19 11:06 | NUR ---
REPORT GIVEN TO LEONARDA FOR COSTA
[2021-10-19] MEDS ORDERED: K PHOS NEUTRAL 250 MG TABLET PO ONE (12:30)
--- NOTE | 2021-10-19 12:30 | NUR ---
PT TRANSFERED WITH ACLS PROTOCOLS IN PLACE
--- NOTE | 2021-10-19 12:45 | NUR ---
RN NOTE RECEIVED PATIENT FROM ER VIA GURNEY ACCOMPANIED BY 2 NURSES. PATIENT TRANSFERRED TO BED AND COMFORT MEASURES PROVIDED. PATIENT A/O X3 BUT POOR HISTORIAN - INCONSISTENT AT TIMES ON ROOM AIR, O2 SAT 98% AND PT TOLERATED WELL. IV ACCESS ON LAC#20G AND RAC#20G INTACT AND PATENT. NO C/O PAIN OR DISCOMFORT. NO ACUTE DISTRESS. ABLE TO USE URINAL. SEIZURE PRECAUTIONS ENFORCED. COMPLAINT OF SOME DISCOMFORT ON THE TONGUE FROM BITING IT FROM SEIZURE. ALL SAFETY MEASURES IN PLACE. BED IN LOWEST POSITION AND LOCKED. BED ALARM ON. SIDERAILS UP X2. PLACE CALL LIGHT WITHIN REACH AT ALL TIMES. WILL CONTINUE TO MONITOR PATIENT.
[2021-10-19 13:09] VITALS: BP 137/70
--- NOTE | 2021-10-19 13:20 | NUR ---
RECEIVED FROM ER VIA STRETCHER ,AWAKE ALERT NO ACUTE DISTRESS,SHAKING, PDUE MEDS GIVEB FOR WITHDRAWAL ,WILL CONTINUE TO MONITOR.
[2021-10-19 15:38] LABS: ALBUMIN 2.8 g/dL (3.4-5.0); BILIRUBIN,TOTAL 2.2 mg/dL (0.2-1.0); CALCIUM, SERUM 8.2 mg/dL (8.5-10.1); CREATININE 0.8 mg/dL (0.6-1.3); POTASSIUM 3.5 mmol/L (3.5-5.1); TOTAL PROTEIN, SERUM 6.3 g/dL (6.4-8.2)
[2021-10-19] MEDS: IV NS 0.9% 1,000 ML IV PRN (15:45)
--- NOTE | 2021-10-19 19:10 | NUR ---
RN CLOSING NOTES PATIENT IN BED AWAKE, A/O X3 AND VERBALLY RESPONSIVE. ON ROOM AIR, O2 SAT 98% AND PT TOLERATED WELL. IV ACCESS ON LAC#20G AND RAC#20G INTACT AND PATENT. RUNNING NS 75CC/HR. NO S/S OF INFILTRATIONS. NO C/O PAIN OR DISCOMFORT. NO ACUTE DISTRESS. USES URINAL. SAFETY MEASURES IN PLACE. BED IN LOWEST POSITION AND LOCKED. BED ALARM ON. SIDERAILS UP X2. PLACE CALL LIGHT WITHIN REACH AT ALL TIMES. WILL ENDORSE TO NEXT SHIFT FOR CONTINUITY OF CARE.
--- NOTE | 2021-10-19 19:30 | NUR ---
RN OPENING NOTES RECEIVED PATIENT IN BED AWAKE, A/O X3 AND VERBALLY RESPONSIVE. ON ROOM AIR AND PT TOLERATED WELL. IV ACCESS ON LAC#20G AND RAC#20G INTACT AND PATENT. RUNNING NS 75CC/HR. NO S/S OF INFILTRATIONS. NO C/O PAIN OR DISCOMFORT. NO ACUTE DISTRESS. ABLE TO USE URINAL. ALL SAFETY MEASURES IN PLACE. BED IN LOWEST POSITION AND LOCKED. BED ALARM ON. SIDERAILS UP X2. PLACE CALL LIGHT WITHIN REACH AT ALL TIMES. WILL CONTINUE TO MONITOR
[2021-10-19 20:00] VITALS: BP 106/55
[2021-10-19] MEDS: LORAZEPAM INJ 2 MG/ML VIAL IV PRN (21:08)
[2021-10-19 21:10] LABS: ALBUMIN 2.7 g/dL (3.4-5.0); BILIRUBIN,TOTAL 1.7 mg/dL (0.2-1.0); CALCIUM, SERUM 7.7 mg/dL (8.5-10.1); CREATININE 0.9 mg/dL (0.6-1.3); POTASSIUM 4.1 mmol/L (3.5-5.1); TOTAL PROTEIN, SERUM 6.1 g/dL (6.4-8.2)
[2021-10-19] MEDS: ENOXAPARIN SODIUM 40 MG/0.4 ML DISP.SYRIN SQ SCH (21:11)
--- NOTE | 2021-10-19 21:12 | NUR ---
RN NOTES: ATIVAN 1 ML IV PUSH GIVEN FOR SEVERE ANXIETY AND ALCOHOL WITHDRAWAL. WILL CONTINUE TO MONITOR
[2021-10-19] MEDS ORDERED: PANTOPRAZOLE 40 MG VIAL IV ONE (23:30)
[2021-10-20] VITALS: BP 113/65
[2021-10-20] MEDS: MORPHINE SULFATE INJ 2 MG/ML DISP.SYRIN IV PRN ×3 (01:18→20:31)
--- NOTE | 2021-10-20 01:27 | NUR ---
RN NOTES: PT C/O SEVERE JAW PAIN 9/10 PAIN SCALE. MORPHINE SULFATE 1 ML IV PUSH GIVEN PER PRN ORDER. PT TOLERATED WELL. WILL CONTINUE TO MONITOR
[2021-10-20 04:00] VITALS: BP 128/72
--- NOTE | 2021-10-20 04:24 | NUR ---
RN NOTES: TYLENOL 325 MG 2 TABS GIVEN FOR INCREASE TEMP 99.9 F. WILL CONTINUE TO MONITOR
[2021-10-20 04:35] LABS: ALBUMIN 2.5 g/dL (3.4-5.0); BILIRUBIN,TOTAL 1.8 mg/dL (0.2-1.0); CALCIUM, SERUM 7.5 mg/dL (8.5-10.1); CREATININE 0.8 mg/dL (0.6-1.3); POTASSIUM 3.3 mmol/L (3.5-5.1); TOTAL PROTEIN, SERUM 5.9 g/dL (6.4-8.2)
[2021-10-20] MEDS: LEVETIRACETAM (500MG) 500 MG in IV NS 0.9% 100 ML IV SCH (05:34)
--- NOTE | 2021-10-20 06:46 | NUR ---
RN CLOSING NOTES PATIENT IN BED AWAKE, A/O X3 AND VERBALLY RESPONSIVE. ON ROOM AIR, O2 SAT 99% AND PT TOLERATED WELL. IV ACCESS ON LAC#20G AND RAC#20G INTACT AND PATENT. RUNNING NS 75CC/HR. NO S/S OF INFILTRATIONS. NO C/O PAIN OR DISCOMFORT. NO ACUTE DISTRESS. ABLE TO USE URINAL. ALL DUE MEDS GIVEN ORDER. ALL SAFETY MEASURES IN PLACE. BED IN LOWEST POSITION AND LOCKED. BED ALARM ON. SIDERAILS UP X2. PLACE CALL LIGHT WITHIN REACH AT ALL TIMES. WILL ENDORSE TO MORNING SHIFT NURSE.
--- NOTE | 2021-10-20 07:30 | NUR ---
RN NOTES PT RECEIVED IN BED AWAKE, A/O X3, RA AND TOLERATING WELL. VERBALLY RESPONSIVE AND ABLE TO MAKE HIS NEED KNOWN, NO SOB OR DISTRESS NOTED AT THIS TIME. IV ACCESS ON LAC#20G RUNNING NS 75CC/HR AND RAC#20G INTACT AND PATENT, NO INFILTRATION NOTED. PT AMBULATORY TO RESTROOM WITH ASSISTANCE. ALL SAFETY MEASURES IN PLACE. BED IN LOW POSITION AND LOCKED. BED ALARM ON. SIDE RAILS UP X3. CALL LIGHT WITHIN REACH WILL COSTA
[2021-10-20 08:00] VITALS: BP 112/67
[2021-10-20] MEDS: MAGNESIUM OXIDE 400 MG TABLET PO SCH ×2 (08:40→17:16)
[2021-10-20] MEDS: MULTIVIT W/MINERALS 1 TAB TABLET PO SCH (08:41)
[2021-10-20] MEDS: THIAMINE HCL 100 MG TABLET PO SCH (08:41)
[2021-10-20] MEDS: PANTOPRAZOLE 40 MG TABLET.DR PO SCH ×2 (08:41→20:30)
[2021-10-20] MEDS: ASCORBIC ACID 500 MG TABLET PO SCH (08:41)
[2021-10-20] MEDS: LISINOPRIL (20MG) 20 MG TABLET PO SCH (08:41)
[2021-10-20] MEDS: AMLODIPINE BESYLATE 10 MG TABLET PO SCH (08:41)
[2021-10-20] MEDS: CHLORDIAZEPOXIDE HCL 25 MG CAPSULE PO SCH ×3 (08:44→17:16)
[2021-10-20] MEDS: IV NS 0.9% 1,000 ML IV PRN (09:23)
--- NOTE | 2021-10-20 09:23 | NUR ---
RN NOTE PT A/OX3, PT COMPLAIN OF SEVERE JAW AND LEG AND GENERALIZE PAIN 10/10 ON PAIN SCALE. PROVIDED MORPHINE SULFATE 1 ML IV PUSH . WILL CONTINUE TO MONITOR
[2021-10-20] MEDS ORDERED: POTASSIUM CHLORIDE 20 MEQ TAB.PRT.SR PO SCH (09:30)
[2021-10-20 12:00] VITALS: BP 118/60
[2021-10-20 13:33] LABS: ALBUMIN 2.7 g/dL (3.4-5.0); BILIRUBIN,TOTAL 1.9 mg/dL (0.2-1.0); CALCIUM, SERUM 7.7 mg/dL (8.5-10.1); CREATININE 0.8 mg/dL (0.6-1.3); POTASSIUM 3.6 mmol/L (3.5-5.1); TOTAL PROTEIN, SERUM 6.2 g/dL (6.4-8.2)
[2021-10-20 16:00] VITALS: BP 116/65
--- NOTE | 2021-10-20 18:39 | NUR ---
RN NOTES PT REMAIN IN BED AWAKE, A/O X3, RA AND TOLERATING WELL. VERBALLY RESPONSIVE AND ABLE TO MAKE HIS NEED KNOWN, NO SOB OR DISTRESS NOTED AT THIS TIME. IV ACCESS ON LAC#20G RUNNING NS 75CC/HR AND RAC#20G INTACT AND PATENT, NO INFILTRATION NOTED. PT AMBULATORY TO RESTROOM WITH ASSISTANCE. PT HAD 4 BM. ALL SAFETY MEASURES IN PLACE. BED IN LOW POSITION AND LOCKED. BED ALARM ON. SIDE RAILS UP X3. CALL LIGHT WITHIN REACH WILL ENDORSE COSTA TO NOC SHIFT.
--- NOTE | 2021-10-20 19:30 | NUR ---
RN OPENING NOTES RECEIVED CARE OF PATIENT WHILE PATIENT IN BED, A/O X3, ABLE TO VERBALIZE NEEDS. PATIENT COMPLAINS OF LOWER LEG PAIN, 8/10 PAIN, REPOSITIONED FOR COMFORT, WILL ADMINISTER MORPHINE PRN FOR PAIN CONTROL AND REASSESS PAIN LEVEL. PATIENT ON ROOM AIR, O2 SAT 97%, NO SOB NOTED, NO DISTRESS NOTED. NO SIGNIFICANT FINDINGS UPON INITIAL NURSING ASSESSMENTS. IV ACCESS ON LAC#20G RUNNING NS 75CC/HR AND RAC#20G INTACT AND PATENT, NO INFILTRATION NOTED. PT AMBULATORY TO RESTROOM WITH ASSISTANCE. ALL SAFETY MEASURES IN PLACE. BED IN LOW POSITION AND LOCKED. BED ALARM ON. SIDE RAILS UP X3. CALL LIGHT WITHIN REACH. WILL CONTINUE TO MONITOR PATIENT.
[2021-10-20 20:00] VITALS: BP 139/76
[2021-10-20] MEDS: LEVETIRACETAM (250 MG) 250 MG TABLET PO SCH (20:29)
[2021-10-20] MEDS: ENOXAPARIN SODIUM 40 MG/0.4 ML DISP.SYRIN SQ SCH (20:30)
[2021-10-20 21:53] LABS: ALBUMIN 2.7 g/dL (3.4-5.0); CALCIUM, SERUM 7.7 mg/dL (8.5-10.1); CREATININE 0.9 mg/dL (0.6-1.3); POTASSIUM 4.4 mmol/L (3.5-5.1); TOTAL PROTEIN, SERUM 6.4 g/dL (6.4-8.2)
[2021-10-21] VITALS: BP 115/62
[2021-10-21] MEDS: IV NS 0.9% 1,000 ML IV PRN ×2 (00:01→21:17)
[2021-10-21 00:53] LABS: BILIRUBIN,TOTAL 1.8 mg/dL (0.2-1.0)
[2021-10-21 04:00] VITALS: BP 129/80
[2021-10-21 04:12] LABS: ALBUMIN 2.5 g/dL (3.4-5.0); BILIRUBIN,TOTAL 1.5 mg/dL (0.2-1.0); CALCIUM, SERUM 7.6 mg/dL (8.5-10.1); CREATININE 0.8 mg/dL (0.6-1.3); POTASSIUM 4.3 mmol/L (3.5-5.1); TOTAL PROTEIN, SERUM 5.9 g/dL (6.4-8.2)
[2021-10-21] MEDS: MORPHINE SULFATE INJ 2 MG/ML DISP.SYRIN IV PRN ×5 (04:23→21:20)
--- NOTE | 2021-10-21 06:36 | NUR ---
RN CLOSING NOTES WILL ENDORSE PATIENT TO AM NURSE WHILE PATIENT IN BED, SLEEPING BUT WAKES UP TO NAME. PATIENT IS A/O X4. PATIENT ON ROOM AIR, 02 SAT 96%, NO SOB NOTED, NO DISTRESS NOTED. PATIENT ABLE TO AMBULATE WITH ASSISTANCE, PATIENT HAD 2 BM. NO SIGNIFICANT FINDINGS UPON ALL NURSING ASSESSMENTS. IV ACCESS ON LAC#20G RUNNING NS 75CC/HR AND RAC#20G INTACT AND PATENT, NO INFILTRATION NOTED. ALL SAFETY MEASURES IN PLACE. BED IN LOW POSITION AND LOCKED. BED ALARM ON, SIDE RAILS UP X3, CALL LIGHT WITHIN REACH. WILL ENDORSE TO AM NURSE FOR COSTA.
[2021-10-21 08:00] VITALS: BP 129/80
--- NOTE | 2021-10-21 08:06 | NUR ---
PLATE INSPECTOR OPENING NOTES RECEIVED PATIENT IN BED, A/O X3, ABLE TO VERBALIZE NEEDS. PATIENT ON ROOM AIR, O2 SAT 97%, NO SOB NOTED, NO DISTRESS NOTED. NO SIGNIFICANT FINDINGS UPON INITIAL NURSING ASSESSMENTS. IV ACCESS ON LAC#20G RUNNING NS 75CC/HR AND RAC#20G INTACT AND PATENT, NO INFILTRATION NOTED. PT AMBULATORY TO RESTROOM WITH ASSISTANCE. ALL SAFETY MEASURES IN PLACE. BED IN LOW POSITION AND LOCKED. BED ALARM ON. SIDE RAILS UP X3. CALL LIGHT WITHIN REACH. WILL CONTINUE TO MONITOR PATIENT.
[2021-10-21] MEDS ORDERED: CHLORDIAZEPOXIDE HCL 25 MG CAPSULE PO ONE (09:00)
--- NOTE | 2021-10-21 09:53 | NUR ---
WOUND CARE CONSULT: PT PRESENTS WITH AREAS OF SKIN DISCOLORATION AND SCAR TO LEFT ANTERIOR LOWER LEG. PT COMPLAINS OF PAIN IN LEFT CALF AND LOWER LEG. PMD AWARE PER RN. SLIGHT RASH TO RT NECK,UPPER CHEST AREA. DEFER TO PMD FOR SKIN CONDITION. WILL SEE PRN. CURRENT JUAN SCORE IS 19.
[2021-10-21] MEDS: LEVETIRACETAM (250 MG) 250 MG TABLET PO SCH ×2 (10:30→21:19)
[2021-10-21] MEDS: LISINOPRIL (20MG) 20 MG TABLET PO SCH (10:31)
[2021-10-21] MEDS: PANTOPRAZOLE 40 MG TABLET.DR PO SCH ×2 (10:31→21:19)
[2021-10-21] MEDS: MULTIVIT W/MINERALS 1 TAB TABLET PO SCH (10:31)
[2021-10-21] MEDS: ASCORBIC ACID 500 MG TABLET PO SCH (10:31)
[2021-10-21] MEDS: MAGNESIUM OXIDE 400 MG TABLET PO SCH ×2 (10:31→18:24)
[2021-10-21] MEDS: AMLODIPINE BESYLATE 10 MG TABLET PO SCH (10:32)
[2021-10-21] MEDS: THIAMINE HCL 100 MG TABLET PO SCH (10:32)
[2021-10-21 12:00] VITALS: BP 127/73
[2021-10-21 13:04] LABS: ALBUMIN 2.4 g/dL (3.4-5.0); BILIRUBIN,TOTAL 1.6 mg/dL (0.2-1.0); CALCIUM, SERUM 7.5 mg/dL (8.5-10.1); CREATININE 0.8 mg/dL (0.6-1.3); POTASSIUM 4.1 mmol/L (3.5-5.1); TOTAL PROTEIN, SERUM 5.9 g/dL (6.4-8.2)
[2021-10-21] MEDS: Magnesium 1GM/D5W 100ML PREMIX 100 ML IV SCH ×2 (13:47→15:06)
[2021-10-21 19:18] VITALS: BP 127/73
--- NOTE | 2021-10-21 19:22 | NUR ---
RN CLOSING NOTES WILL ENDORSE PATIENT TO PM NURSE WHILE PATIENT IN BED, SLEEPING BUT WAKES UP TO NAME. PATIENT IS A/O X4. PATIENT ON ROOM AIR, 02 SAT 96%, NO SOB NOTED, NO DISTRESS NOTED. PATIENT ABLE TO AMBULATE WITH ASSISTANCE, PATIENT HAD 2 BM. NO SIGNIFICANT FINDINGS UPON ALL NURSING ASSESSMENTS. IV ACCESS ON LAC#20G RUNNING NS 75CC/HR AND RAC#20G INTACT AND PATENT, NO INFILTRATION NOTED. ALL SAFETY MEASURES IN PLACE. BED IN LOW POSITION AND LOCKED. BED ALARM ON, SIDE RAILS UP X3, CALL LIGHT WITHIN REACH. WILL ENDORSE TO PM NURSE..
[2021-10-21 20:00] VITALS: BP 140/72
[2021-10-21 21:17] LABS: ALBUMIN 2.4 g/dL (3.4-5.0); BILIRUBIN,TOTAL 1.5 mg/dL (0.2-1.0); CALCIUM, SERUM 8.3 mg/dL (8.5-10.1); CREATININE 0.8 mg/dL (0.6-1.3); POTASSIUM 4.2 mmol/L (3.5-5.1); TOTAL PROTEIN, SERUM 5.9 g/dL (6.4-8.2)
[2021-10-21] MEDS: ENOXAPARIN SODIUM 40 MG/0.4 ML DISP.SYRIN SQ SCH (21:42)
[2021-10-22] MEDS: MORPHINE SULFATE INJ 2 MG/ML DISP.SYRIN IV PRN ×5 (01:53→23:06)
[2021-10-22 04:00] VITALS: BP 124/66
--- NOTE | 2021-10-22 05:04 | NUR ---
RN notes Alert and oriented, in bed resting comfortably. No distress noted. Breathing even and unlabored. On room air tolerating well. Vital signs wnl. Morphine administered q4h as requested by the patient. Kept clean and dry. Will continue to monitor. Will endorse to next shift for continuity of care.
[2021-10-22 06:49] LABS: CALCIUM, SERUM 8.3 mg/dL (8.5-10.1); CREATININE 0.8 mg/dL (0.6-1.3); POTASSIUM 4.3 mmol/L (3.5-5.1)
[2021-10-22 07:19] LABS: MAGNESIUM 1.2 mg/dL (1.8-2.4)
--- NOTE | 2021-10-22 08:10 | NUR ---
RN Opening Note Patient received in bed, AO x 4, no distress observed, able to responds all stimuli. Respiratory even and unlabored on room air. Skin is warm to touch, keep clean/dry, intact IV site. Kept elevated HOB for ensure airway/aspiration precaution and remain lower position of the bed for safety. call light within reach, will continue to monitor.
[2021-10-22] MEDS ORDERED: Magnesium 1GM/D5W 100ML PREMIX 100 ML IV SCH (09:00)
[2021-10-22] MEDS: THIAMINE HCL 100 MG TABLET PO SCH (09:09)
[2021-10-22] MEDS: MAGNESIUM OXIDE 400 MG TABLET PO SCH ×2 (09:09→16:53)
[2021-10-22] MEDS: PANTOPRAZOLE 40 MG TABLET.DR PO SCH ×2 (09:09→20:41)
[2021-10-22] MEDS: ASCORBIC ACID 500 MG TABLET PO SCH (09:09)
[2021-10-22] MEDS: MULTIVIT W/MINERALS 1 TAB TABLET PO SCH (09:09)
[2021-10-22] MEDS: LEVETIRACETAM (250 MG) 250 MG TABLET PO SCH ×2 (09:10→20:42)
[2021-10-22] MEDS: AMLODIPINE BESYLATE 10 MG TABLET PO SCH (09:10)
[2021-10-22] MEDS: LISINOPRIL (20MG) 20 MG TABLET PO SCH (09:10)
[2021-10-22] MEDS: Magnesium 1GM/D5W 100ML PREMIX 100 ML IV SCH ×2 (10:34→11:39)
[2021-10-22] MEDS: IV NS 0.9% 1,000 ML IV PRN (13:24)
--- NOTE | 2021-10-22 18:25 | NUR ---
RN Closing Note Patient is resting in bed, no distress observed. Respiratory even and unlabored on room air. Skin is warm to touch, keep clean/dry, intact IV site. Kept elevated HOB for ensure airway and aspiration precaution, Also lower position of the bed for safety. No adverse reaction observed form antibiotics. Call light within reach, all needs met. will endorse shift foreman.
--- NOTE | 2021-10-22 19:20 | NUR ---
MS RN OPENING NOTE RECEIVED PT AWAKE IN BED. A/OX4. PT STABLE ON RA. NO SOB OR RESPIRATORY DISTRESS NOTED. PT IS AMBULATORY WITH ASSIST. PT HAS NO C/O PAIN AT THIS TIME. IV ACCESS IN LEFT AC # 20, IV IS INTACT, PATENT, AND FLUSHING WELL. URINAL PROVIDED, SAFETY MEASURES MAINTAINED. BED IN LOWEST, LOCKED POSITION, HOB ELEVATED, SIDE RAILS UP X2. CALL LIGHT AND TABLE WITHIN REACH. WILL CONTINUE WITH PLAN OF CARE.
[2021-10-22] MEDS: LORAZEPAM INJ 2 MG/ML VIAL IV PRN (20:42)
[2021-10-22] MEDS: ENOXAPARIN SODIUM 40 MG/0.4 ML DISP.SYRIN SQ SCH (20:42)
--- NOTE | 2021-10-22 20:42 | NUR ---
PT AGITATED, ANXIOUS AND LOUD. PT STATED THAT HE WILL HIT SOMEONE. ATIVAN 2MG/1ML IV Q6HR PRN ADMINISTERED AT THIS TIME PER ORDER. WILL CONTINUE TO MONITOR.
--- NOTE | 2021-10-22 20:42 | NUR ---
PT AGITATED, ANXIOUS AND LOUD. PT STATED THAT HE WILL HIT SOMEONE. DR FRIEND NOTIFIED. ATIVAN 2MG/1ML IV Q6HR ADMINISTERED AT THIS TIME PER ORDER. WILL CONTINUE TO MONITOR.
[2021-10-22 22:00] VITALS: BP 134/73
--- NOTE | 2021-10-22 23:06 | NUR ---
PT C/O ACHING PAIN OF 8/10 ON HIS LEFT FOOT. PER PT REQUEST, MORPHINE 2MG/1ML IV Q4HR PRN ADMINISTERED AT HIS TIME PER ORDER. WILL CONTINUE TO MONITOR.
[2021-10-23] MEDS: IV NS 0.9% 1,000 ML IV PRN ×2 (04:53→15:55)
[2021-10-23] MEDS: MORPHINE SULFATE INJ 2 MG/ML DISP.SYRIN IV PRN ×3 (05:21→19:41)
[2021-10-23 06:00] VITALS: BP 102/50
--- NOTE | 2021-10-23 06:30 | NUR ---
MS RN CLOSING NOTEPT IS IN BED WITH EYES CLOSED, EASY TO AROUSE. A/O X4. PT IS STABLE ON ROOM AIR. NO SOB/ SIGNS OF RESPITORY DISTRESS. PT IS AMBULATORY WITH BRP. IV ACCESS IN INTACT, PATENT, AND FLUSHING WELL. ALL NEEDS HAVE BEEN MET. ALL CARE, NEEEDS, , MEDICATIONS, AAMD TREATMENT ADMINISTERED ANTISPATED PER ORDER. PAIN MANGEMENT AND WOUND CARE ADMINISTERED PERT ORDER. SAAFETY, SEIZURE, AND ASPIRATIONPRECAUTIONS MAINATINED AT ALL TIMES. BED IN LOWEST, LOCKED POSITION, HOB ELEVATED, SIDE RAILS UP X2. CALL LIGHT AND TABLE WITHIN REACH. WILL ENDORSE TO ONCOMING NURSE FOR COSTA.
--- NOTE | 2021-10-23 07:34 | NUR ---
RN OPENING NOTE PT IS IN BED SLEEPING UPON ASSESSMENT. A/O X4 PER FIRESTOPPER INSTALLER RN. PT IS STABLE ON ROOM AIR. NO SOB/ SIGNS OF DISTRESS. PT IS AMBULATORY WITH BRP. RAC 20G AND LAC PIV ACCESS INTACT, PATENT, AND FLUSHING WELL LAC IS RUNNING NS @75ML/HR. BED IN LOWEST, LOCKED POSITION, HOB ELEVATED, SIDE RAILS UP X2. CALL LIGHT AND TABLE WITHIN REACH. WILL CONTINUE TO MONITOR.
[2021-10-23] MEDS: LISINOPRIL (20MG) 20 MG TABLET PO SCH (08:12)
[2021-10-23] MEDS: LEVETIRACETAM (250 MG) 250 MG TABLET PO SCH ×2 (08:12→20:52)
[2021-10-23] MEDS: PANTOPRAZOLE 40 MG TABLET.DR PO SCH ×2 (08:12→20:52)
[2021-10-23] MEDS: AMLODIPINE BESYLATE 10 MG TABLET PO SCH (08:13)
[2021-10-23] MEDS: MULTIVIT W/MINERALS 1 TAB TABLET PO SCH (08:13)
[2021-10-23] MEDS: LORAZEPAM INJ 2 MG/ML VIAL IV PRN ×2 (08:13→23:09)
[2021-10-23] MEDS: MAGNESIUM OXIDE 400 MG TABLET PO SCH ×2 (08:13→16:09)
[2021-10-23] MEDS: THIAMINE HCL 100 MG TABLET PO SCH (08:13)
[2021-10-23] MEDS: ASCORBIC ACID 500 MG TABLET PO SCH (08:13)
[2021-10-23 08:48] LABS: CALCIUM, SERUM 8.6 mg/dL (8.5-10.1); MAGNESIUM 1.2 mg/dL (1.8-2.4); POTASSIUM 4.1 mmol/L (3.5-5.1)
[2021-10-23 08:49] LABS: CREATININE 0.8 mg/dL (0.6-1.3)
[2021-10-23] MEDS: Magnesium 1GM/D5W 100ML PREMIX 100 ML IV SCH ×4 (10:08→13:43)
[2021-10-23 14:00] VITALS: BP 115/72
--- NOTE | 2021-10-23 18:36 | NUR ---
RN CLOSING NOTE PT REMAINED STABLE THROUGHOUT SHIFT. PT RESTING IN BED. A/O X4 AND ABLE TO VERBALIZE NEEDS. PT IS STABLE ON ROOM AIR @ 98%SPO2. NO SOB/ SIGNS OF DISTRESS. PT IS AMBULATORY W/ASSISTANCE WITH BRP. RAC 20G AND LAC PIV ACCESS INTACT, PATENT, AND FLUSHING WELL LAC IS RUNNING NS @75ML/HR. BED IN LOWEST, LOCKED POSITION, HOB ELEVATED, SIDE RAILS UP X2. CALL LIGHT AND TABLE WITHIN REACH. WILL ENDORSE TO HEEL BUILDER MACHINE RN.
[2021-10-23 20:00] VITALS: BP 135/78
--- NOTE | 2021-10-23 20:00 | NUR ---
RN OPENING NOTE PATIENT RESTING IN BED WITH EYES CLOSED, EASILY AWAKENED, PT ALERT/ORIENTED X 4, PT ABLE TO MAKE NEEDS KNOWN. PATIENT REPORTING 9/10 ON RIGHT LEG, MORPHINE 2 MG IV GIVEN ORDERED. PT STABLE ON RA, NO S/S OF DISTRESS OR SOB NOTED, BREATHING EVEN AND UNLABORED. IV ACCESS ON RIGHT AC #20G INTACT AND FLUSHING WELL, LEFT AC RUNNING NS @ 75 ML/HR. SAFETY MEASURES IN PLACE: CALL LIGHT WITHIN REACH, SIDE RAILS UP X 2, BED LOCKED IN LOW POSITION, BED ALARM ON. WILL CONTINUE TO MONITOR PATIENT
[2021-10-23] MEDS: ENOXAPARIN SODIUM 40 MG/0.4 ML DISP.SYRIN SQ SCH (20:51)
--- NOTE | 2021-10-23 23:09 | NUR ---
RN NOTE PATIENT RESTLESS AND REQUESTING ATIVAN. ATIVAN 2 MG IV GIVEN ORDERED. WILL CONTINUE TO MONITOR PATIENT
[2021-10-24] MEDS: MORPHINE SULFATE INJ 2 MG/ML DISP.SYRIN IV PRN ×3 (01:42→11:31)
[2021-10-24 04:00] VITALS: BP 130/72
--- NOTE | 2021-10-24 07:00 | NUR ---
RN CLOSING NOTE PATIENT SLEEPING IN BED, NO SIGNIFICANT CHANGES THROUGHOUT SHIFT, PT SLEPT WELL THROUGH THE NIGHT. PT STABLE ON RA, NO S/S OF DISTRESS OR SOB NOTED, BREATHING EVEN AND UNLABORED. MEDICATIONS GIVEN ORDERED, PT NEEDS MET THROUGHOUT SHIFT. SAFETY AND SEIZURE PRECAUTIONS IN PLACE. WILL ENDORSE TO DAY SHIFT NURSE FOR CONTINUITY OF CARE
--- NOTE | 2021-10-24 07:09 | NUR ---
RN OPENING NOTE RECEIVED PATIENT RESTING IN BED WITH EYES CLOSED, EASILY AWAKENED, PT ALERT/ORIENTED X 4, PT ABLE TO MAKE NEEDS KNOWN. PATIENT DENIES PAIN OR DISCOMFORT AT THIS TIME. PT STABLE ON RA, NO S/S OF DISTRESS OR SOB NOTED, BREATHING EVEN AND UNLABORED. IV ACCESS ON RIGHT AC #20G INTACT AND FLUSHING WELL, LEFT AC RUNNING NS @ 75 ML/HR. SAFETY MEASURES IN PLACE: CALL LIGHT WITHIN REACH, SIDE RAILS UP X 2, BED LOCKED IN LOW POSITION, BED ALARM ON. WILL CONTINUE TO MONITOR PATIENT
[2021-10-24 07:39] VITALS: BP 130/72
[2021-10-24] MEDS: MAGNESIUM OXIDE 400 MG TABLET PO SCH ×2 (08:05→16:03)
[2021-10-24] MEDS: MULTIVIT W/MINERALS 1 TAB TABLET PO SCH (08:05)
[2021-10-24] MEDS: ASCORBIC ACID 500 MG TABLET PO SCH (08:05)
[2021-10-24] MEDS: LEVETIRACETAM (250 MG) 250 MG TABLET PO SCH (08:05)
[2021-10-24] MEDS: PANTOPRAZOLE 40 MG TABLET.DR PO SCH (08:05)
[2021-10-24] MEDS: THIAMINE HCL 100 MG TABLET PO SCH (08:06)
[2021-10-24] MEDS: LISINOPRIL (20MG) 20 MG TABLET PO SCH (08:06)
[2021-10-24] MEDS: AMLODIPINE BESYLATE 10 MG TABLET PO SCH (08:06)
[2021-10-24 09:03] VITALS: BP 130/80
[2021-10-24 09:12] LABS: CALCIUM, SERUM 8.7 mg/dL (8.5-10.1); CREATININE 0.7 mg/dL (0.6-1.3); MAGNESIUM 1.3 mg/dL (1.8-2.4); POTASSIUM 4.1 mmol/L (3.5-5.1)
[2021-10-24] MEDS ORDERED: LEVE500T9 PO (14:02)
[2021-10-24 14:06] VITALS: BP 114/57
[2021-10-24] MEDS: Magnesium 1GM/D5W 100ML PREMIX 100 ML IV SCH ×3 (14:09→16:03)
--- NOTE | 2021-10-24 16:55 | NUR ---
FAMILY SERVICES MANAGER NOTE RECEIVED ORDER FOR DISCHARGE. PATIENT IS A/O X3. PATIENT IS BREATHING EVENLY AND NONLABORED ON ROOM AIR. NO SIGNS OF DISTRESS NOTED. DENIES PAIN OR DISCOMFORT AT THIS TIME. PATIENT WAS GIVEN DISCHARGE INSTRUCTIONS BOTH VERBALLY AND IN WRITTEN FORM PATIENT VERBALIZED UNDERSTANDING. PATIENT WAS GIVEN MAGNESIUM IV FOR LOW MAGNESIUM BEFORE DISCHARGE. ALL BELONGINGS WERE ACCOUNTED FOR AND BELONGINGS FORM SIGNED. ID BAND REMOVED. IV ACCESS REMOVED AND PRESSURE DRESSING APPLIED. PATIENT WILL HAVE HOME HEALTH AT HOME. PATIENT LEFT FACILITY IN STABLE CONDITION VIA PRIVATE CAR WITH FAMILY
== END 2021-10-24 16:57 | disposition home or self-care (01) | DRG 53 ==
LOC: ER 22:12 → TRANSITION 10-19 03:45 → TELE-TD 10-19 11:42 → TELE1 10-21 09:58 → MEDSG1 10-21 13:29
PROVIDERS: ADMIT Internal Medicine; ATTEND Nurse Practitioner Acute Care
DX: G40.509 Epileptic seizures related to external causes, not intractable, without status epilepticus (principal); F10.231 Alcohol dependence with withdrawal delirium; E44.0 Moderate protein-calorie malnutrition; E87.2 Acidosis; E88.09 Other disorders of plasma-protein metabolism, not elsewhere classified; E83.39 Other disorders of phosphorus metabolism; Y90.0 Blood alcohol level of less than 20 mg/100 ml; D64.9 Anemia, unspecified; E87.1 Hypo-osmolality and hyponatremia; I10 Essential (primary) hypertension; Z68.32 Body mass index [BMI] 32.0-32.9, adult; Z20.822 Contact with and (suspected) exposure to COVID-19; K86.1 Other chronic pancreatitis; Z79.899 Other long term (current) drug therapy; E83.42 Hypomagnesemia; R26.9 Unspecified abnormalities of gait and mobility; E86.1 Hypovolemia; M25.78 Osteophyte, vertebrae; M48.07 Spinal stenosis, lumbosacral region; M79.89 Other specified soft tissue disorders; G72.9 Myopathy, unspecified
CPT/HCPCS: 36415; 36600; 70450-TC; 71045-TC; 72148-TC; 73630-TC; 73718-TC; 80048-TC; 80053-TC; 80076-TC; 83605-TC; 83690-TC; 83735-TC; 84100-TC; 84295-TC; 85025-TC; 85730-TC; 86140-TC; 87081-TC; 93970-TC; 97116-TC; 97530-TC; C9113; C9803; G0378; G0480; J1650; J1953; J2060; J2270; J2405; J3475; J3490; J7030; J7050

== ENCOUNTER 2021-11-30 17:26 | Emergency (ER) | payer OTHER ==
[~2021-11-30] VITALS: Ht 170.2 cm; Wt 94.3 kg
[~2021-11-30 17:26] MED LIST changes: +LEVE500T9 PO
[2021-11-30 18:18] VITALS: BP 156/76
--- NOTE | 2021-11-30 18:49 | NUR ---
SEEN AND EXAMINED BY .
[2021-11-30] MEDS ORDERED: LORAZEPAM INJ 2 MG/ML VIAL IM ONE (19:00)
[2021-11-30] MEDS ORDERED: LORAZEPAM INJ 2 MG/ML VIAL ONE (19:08)
[2021-11-30] MEDS ORDERED: CHLO25CA22 PO (19:35)
--- NOTE | 2021-11-30 20:15 | NUR ---
Patient discharged to home in stable condition. Written and verbal after care instructions given. Patient verbalizes understanding of instruction. Pt ambulatory with a steady gait
== END 2021-11-30 20:22 | disposition home or self-care (01) ==
LOC: ER 17:27
DX: F10.139 Alcohol abuse with withdrawal, unspecified (principal); I10 Essential (primary) hypertension; F17.200 Nicotine dependence, unspecified, uncomplicated; Z79.899 Other long term (current) drug therapy; Y90.9 Presence of alcohol in blood, level not specified
CPT/HCPCS: 96372; 99283; J2060

== ENCOUNTER 2022-10-18 05:34 | Inpatient (IN) | payer OTHER ==
[~2022-10-18] VITALS: Ht 170.2 cm; Wt 98.0 kg
[2022-10-18] VITALS (19 sets, daily range): BP systolic 113–160; BP diastolic 42–133
[~2022-10-18 05:34] MED LIST changes: +CHLO25CA22 PO
--- NOTE | 2022-10-18 06:07 | NUR ---
BIBS FOR C/O ABD PAIN AND DIARRHEA X 2 DAY. PT A/OX4. TOLERATING R/A WELL WITH NO RESP DISTRESS. SAFETY MEASURES IN PLACE. CONNECTED PT TO POX AND MONITOR.
[2022-10-18] MEDS ORDERED: IV NS 0.9% 1,000 ML BAG IV ONE (06:30)
[2022-10-18] MEDS ORDERED: MORPHINE SULFATE INJ 2 MG/ML DISP.SYRIN IV ONE ×2 (06:30→08:30)
[2022-10-18] MEDS ORDERED: ONDANSETRON HCL/PF 4 MG/2 ML VIAL IVP ONE (06:30)
--- NOTE | 2022-10-18 06:30 | NUR ---
DR. ANGELICA SANCHEZ AT PT'S BEDSIDE FOR EVAL
--- NOTE | 2022-10-18 06:40 | NUR ---
RAC #20G S/L BLOOD COLLECTED AND SENT TO LAB
[2022-10-18] MEDS ORDERED: MORPHINE SULFATE INJ 4 MG/ML DISP.SYRIN ONE ×2 (06:41→08:24)
[2022-10-18] MEDS ORDERED: ONDANSETRON HCL/PF 4 MG/2 ML VIAL ONE (06:41)
[2022-10-18] MEDS ORDERED: LORAZEPAM INJ 2 MG/ML VIAL ONE ×2 (06:44→10:42)
[2022-10-18] MEDS ORDERED: LORAZEPAM INJ 2 MG/ML VIAL IV ONE ×2 (07:00→10:30)
[2022-10-18 07:08] LABS: ALBUMIN 2.3 g/dL (3.4-5.0); BILIRUBIN,DIRECT 2.1 mg/dL (0.0-0.2); BILIRUBIN,TOTAL 2.4 mg/dL (0.2-1.0); CALCIUM, SERUM 8.1 mg/dL (8.5-10.1); CREATININE 1.1 mg/dL (0.6-1.3); TOTAL PROTEIN, SERUM 6.7 g/dL (6.4-8.2)
--- NOTE | 2022-10-18 07:15 | NUR ---
RECEIVED pt from from [facility] AND ALERT FALLOW COMMAND C/O ABDOMINALE PAIN 06/19
[2022-10-18 07:26] LABS: BASOPHILS % (AUTO) 0.1 % (0.0-2.0); EOSINOPHILS % (AUTO) 0.2 % (0.0-6.0); HEMATOCRIT 23 % (39-51); HEMOGLOBIN 7.5 g/dL (13.5-17.5); LYMPHOCYTES # (AUTO) 0.8 K/uL (0.8-4.8); MEAN CORPUSCULAR HGB CONC 32 g/dl (31.0-36.0); MEAN CORPUSCULAR VOLUME 90 fL (80-96); MONOCYTES # (AUTO) 0.5 K/uL (0.1-1.30); MONOCYTES % (AUTO) 2.4 % (2.0-12.0); NEUTROPHILS % (AUTO) 93.3 % (43.0-81.0); PLATELET COUNT (AUTO) 110 K/uL (150-450); WHITE BLOOD COUNT (AUTO) 20.3 K/uL (4.3-11.0)
[2022-10-18 07:30] LABS: POTASSIUM 2.8 mmol/L (3.5-5.1)
[2022-10-18] MEDS ORDERED: Magnesium 1GM/D5W 100ML PREMIX 100 ML IV ONE ×2 (07:51→10:00)
--- NOTE | 2022-10-18 07:51 | NUR ---
COVID SWAB COLLECTED AND SENT TO LAB
[2022-10-18] MEDS: Magnesium 1GM/D5W 100ML PREMIX 100 ML IV SCH ×2 (07:53→11:00)
[2022-10-18] MEDS ORDERED: CEFTRIAXONE 1GM BAG (ER ONLY) 1 GM/50 ML PIGGYBACK IV ONE (08:00)
[2022-10-18] MEDS ORDERED: FLAGYL/NS RTU 500 MG/100 ML PIGGYBACK IV ONE (08:00)
--- NOTE | 2022-10-18 08:00 | NUR ---
SEEN BY DR. KAYE
--- NOTE | 2022-10-18 08:10 | NUR ---
MOVE SHEET SUBMITTED.
[2022-10-18] MEDS ORDERED: POTASSIUM CL. PREMIX PERIPHER. 50 ML ONE ×2 (08:12→09:24)
[2022-10-18] MEDS ORDERED: CEFTRIAXONE 1GM BAG (ER ONLY) 50 ML IV ONE (08:12)
[2022-10-18] MEDS ORDERED: LISI20TA30 PO (08:49)
[2022-10-18] MEDS: POTASSIUM CL. PREMIX PERIPHER. 50 ML IV SCH ×2 (09:20→09:55)
--- NOTE | 2022-10-18 09:30 | NUR ---
MOTHER AT BED SIDE
--- NOTE | 2022-10-18 09:42 | NUR ---
CALLED DR. HAM [phone] DOMINGUEZ.
[2022-10-18] MEDS ORDERED: diphenhydrAMINE HCL 50 MG/ML VIAL IV ONE (10:00)
[2022-10-18] MEDS ORDERED: PROCHLORPERAZINE EDISYLATE 10 MG/2 ML VIAL IVP ONE (10:00)
[2022-10-18] MEDS ORDERED: diphenhydrAMINE HCL 50 MG/ML VIAL ONE (10:00)
[2022-10-18] MEDS ORDERED: IV NS 0.9% 1,000 ML IV ONE ×2 (10:00→16:00)
[2022-10-18] MEDS ORDERED: PROCHLORPERAZINE EDISYLATE 10 MG/2 ML VIAL ONE (10:00)
--- NOTE | 2022-10-18 10:18 | NUR ---
IRLENE CM [phone] X [phone] AUTH [id number]
--- NOTE | 2022-10-18 10:18 | NUR ---
[facility] CALLED FORMULA BOTTLER PAGED.
--- NOTE | 2022-10-18 11:04 | NUR ---
RESTING AND ASLEEPY NO SOB
[2022-10-18] MEDS ORDERED: ONDANSETRON HCL/PF 4 MG/2 ML VIAL IVP PRN (11:30)
[2022-10-18] MEDS ORDERED: PHENOBARBITAL SODIUM 1,000 MG in IV NS 0.9% 100 ML IV ONE (11:30)
[2022-10-18] MEDS ORDERED: IV LR 1000 ML 1,000 ML IV SCH (11:30)
[2022-10-18] MEDS ORDERED: IV NS 0.9% 250 ML IV ONE (11:40)
[2022-10-18] MEDS ORDERED: CT SWABBABLE VALVE TRANS SET 1 EA INFUS.SET MC ONE (11:40)
[2022-10-18] MEDS ORDERED: IOHEXOL-300 100 ML VIAL IV ONE (11:40)
--- NOTE | 2022-10-18 11:42 | NUR ---
JULIEN BOWEN SCAN VIA ROBERTA
--- NOTE | 2022-10-18 12:00 | NUR ---
BACK FROM [facility] SCAN DONE
[2022-10-18 12:14] LABS: HEMOGLOBIN 7.8 g/dL (13.5-17.5)
[2022-10-18] MEDS ORDERED: PHENOBARBITAL SODIUM 1,000 MG in IV NS 0.9% 80 ML IV ONE (12:30)
[2022-10-18 12:58] LABS: ALCOHOL, BLOOD 114 mg/dL (0-0)
[2022-10-18] MEDS ORDERED: MAGNESIUM OXIDE 400 MG TABLET ONE (13:20)
[2022-10-18] MEDS ORDERED: OCTREOTIDE 50 MCG in IV NS 0.9% 50 ML IJ ONE (13:30)
[2022-10-18] MEDS ORDERED: ADENOSINE 6 MG/2 ML VIAL IVP ONE ×2 (13:30→20:30)
[2022-10-18] MEDS ORDERED: OCTREOTIDE 500 MCG in IV NS 0.9% 99 ML IV PRN (13:30)
[2022-10-18] MEDS ORDERED: PANTOPRAZOLE 80 MG in IV NS 0.9% 100 ML IV ONE (13:30)
[2022-10-18] MEDS ORDERED: ADENOSINE 6 MG/2 ML VIAL ONE ×2 (13:31→13:39)
--- NOTE | 2022-10-18 13:33 | NUR ---
PT VODING 400ML DARK YELLOW COLOR UA SENT TO LAB
--- NOTE | 2022-10-18 13:38 | NUR ---
ON PLAN GIVE ADNOSINE 6MG IVP GIVEN FIO2 2L NC CONECTED TO CADIAC MONITE AND EKG PAD intact AT 1339 GIVE ADOSINE 12 MG FAST IVP AND FALLOW WITH NS FLASED
--- NOTE | 2022-10-18 13:40 | NUR ---
NO RESPONDED TO ADENOSINE HR 162/MIN
--- NOTE | 2022-10-18 14:20 | NUR ---
JULIEN BOWEN SCAN VIA REVA
[2022-10-18 14:37] LABS: BILIRUBIN,URINE 1+ (NEGATIVE); COLOR,URINE YELLOW (YELLOW); LEUKOCYTE ESTERASE ,URINE NEGATIVE (NEGATIVE); NITRITE, URINE NEGATIVE (NEGATIVE); PH,URINE 6.5 (5.0-8.0); PROTEIN,URINE NEGATIVE (NEGATIVE); UGLUCOSE NEGATIVE (NEGATIVE)
[2022-10-18 14:58] LABS: BACTERIA,URINE None seen /HPF (None Seen); SQUAMOUS EPITHELIAL CELL,UR Few /HPF (None Seen); WBC,URINE NONE SEEN /HPF (0-3)
--- NOTE | 2022-10-18 15:15 | NUR ---
GOT BED 257 ADMITTING INFORMED.
[2022-10-18] MEDS: MAGNESIUM OXIDE 400 MG TABLET PO SCH (15:30)
--- NOTE | 2022-10-18 15:57 | NUR ---
pt sign consent fpr blood transfution fully understood
--- NOTE | 2022-10-18 16:15 | NUR ---
HAND OFF KASHIF PIERCE RN TO ROOM 257 VIA REVA AWAKE AND FALLOW COMMND
[2022-10-18] MEDS ORDERED: CHLORDIAZEPOXIDE HCL 25 MG CAPSULE ONE (16:22)
[2022-10-18] MEDS ORDERED: PANTOPRAZOLE 40 MG VIAL ONE (16:22)
[2022-10-18] MEDS: PANTOPRAZOLE 40 MG VIAL IV SCH ×2 (16:23→17:00)
[2022-10-18] MEDS: CHLORDIAZEPOXIDE HCL 25 MG CAPSULE PO SCH ×2 (16:25→17:00)
--- NOTE | 2022-10-18 16:50 | NUR ---
PATIENT ARRIVED FROM ER DEPT, BEDSIDE REPORT FROM MAGALYS-RN , PER MAGALYS " LIBRIUM/PROTONIX ALREADY GIVEN."
[2022-10-18] MEDS ORDERED: THIAMINE IV ONE (17:00)
[2022-10-18] MEDS ORDERED: D5W IV ONE (17:00)
--- NOTE | 2022-10-18 17:19 | NUR ---
DR. NAGY WAS NOTIFIED OF THE HR 160s-170s, rlcr=[id number]; NEW ORDER OF EKG.
[2022-10-18 17:39] LABS: HEMATOCRIT 22 % (39-51); HEMOGLOBIN 7.1 g/dL (13.5-17.5); LYMPHOCYTES # (AUTO) 0.7 K/uL (0.8-4.8); LYMPHOCYTES % (AUTO) 3.1 % (20.0-44.0); MEAN CORPUSCULAR HGB CONC 32 g/dl (31.0-36.0); MEAN CORPUSCULAR VOLUME 91 fL (80-96); MONOCYTES # (AUTO) 0.8 K/uL (0.1-1.30); MONOCYTES % (AUTO) 3.6 % (2.0-12.0); NEUTROPHILS # (AUTO) 19.9 K/uL (1.8-8.9); NEUTROPHILS % (AUTO) 93.3 % (43.0-81.0); PLATELET COUNT (AUTO) 84 K/uL (150-450); RED BLOOD CELL COUNT(AUTO) 2.44 MIL/uL (4.5-6.0); WHITE BLOOD COUNT (AUTO) 21.3 K/uL (4.3-11.0)
[2022-10-18] MEDS: DILTIAZEM HCL IV 125 MG in IV NS 0.9% 100 ML IV PRN (17:45)
--- NOTE | 2022-10-18 18:05 | NUR ---
PT REFUSED DINNER
--- NOTE | 2022-10-18 18:15 | NUR ---
temp rechecked 99.2F after sponge bath given.
[2022-10-18] MEDS: IV D5 LR 1,000 ML IV SCH ×2 (18:21→22:55)
[2022-10-18] MEDS: CEFEPIME 2 GM in IV D5W 100 ML IV SCH (18:22)
--- NOTE | 2022-10-18 19:02 | NUR ---
ENDORSED TO SCARLET FOR CONTINUITY OF CARE AND TO FOLLOW -UP WITH MD REGARDING PENDING PROTONIX IV/THIAMINE IV AND SANDOSTATIN IV ORDERED FROM ER DEPT IF NEEDS TO BE GIVEN TO PT.
[2022-10-18 19:04] LABS: CALCIUM, SERUM 7.8 mg/dL (8.5-10.1); CREATININE 1.1 mg/dL (0.6-1.3); POTASSIUM 3.4 mmol/L (3.5-5.1)
[2022-10-18 19:25] LABS: MAGNESIUM 1.2 mg/dL (1.8-2.4)
--- NOTE | 2022-10-18 19:25 | NUR ---
RN NOTE RECEIVED CRITICAL FROM LAB, MAGNESIUM 1.2; NOTED TO BE TRENDING UP FROM 0.9
--- NOTE | 2022-10-18 19:35 | NUR ---
SHOE IRONER OPENING NOTE PT RECEIVED IN BED, AWAKE, ANXIOUS, RESTLESS, A&O X2; NOTED TO HAVE TREMORS. PT ON 5L NC WITH CURRENT O2SAT OF 95%; NO S/S OF RESP DISTRESS, NO SOB, NON-LABORED AND EQUAL BREATHING; NOTED TO HAVE NON-PRODUCTIVE COUGH. PT ATTACHED TO BEDSIDE MONITOR, ST WITH HR 151. IV ACCESS ON KRISTOFER MIDLINE, RAC 20G, RIGHT HAND 18G INTACT AND PATENT, FLUSHES EASILY WITH NO RESISTANCE; D5LR INFUSING AT 200 ML/HR AND CARDIZEM AT 15 MG/HR. BED IN LOWEST POSITION, CALL LIGHT WITHIN REACH, SIDE RAILS UP X3. WILL CONTINUE TO MONITOR THROUGHOUT THE NIGHT.
[2022-10-18 19:47] LABS: LYMPHOCYTES % (MANUAL) 4 % (16-48); MONOCYTES % (MANUAL) 1 % (0-11.0); NEUTROPHILS % (MANUAL) 95 (42-76)
[2022-10-18] MEDS ORDERED: ADENOSINE 6 MG/2 ML VIAL IVP STA ×2 (20:22→20:39)
[2022-10-18] MEDS: LORAZEPAM INJ 2 MG/ML VIAL IV PRN (21:34)
[2022-10-18] MEDS: LEVETIRACETAM (250 MG) 250 MG TABLET PO SCH (21:34)
--- NOTE | 2022-10-18 21:35 | NUR ---
RN NOTE PT APPEARS TO BE EXTREMELY RESTLESS, ANXIOUS D/T ALCOHOL WITHDRAWAL, WITH HR NOTED TO BE IN 150S. PT REQUESTS MEDICINE FOR ANXIETY. PT ADMINISTERED ATIVAN 2 MG IV. WILL MONITOR FOR EFFECTIVENESS.
--- NOTE | 2022-10-18 22:05 | NUR ---
RN NOTE PRE-TRANSFUSION (FFP) VS ARE FOLLOWS: BP 130/73, HR 147, TEMP 98.3, RR 26, 100% O2SAT. WILL CONTINUE TO MONITOR THROUGHOUT TRANSFUSION.
--- NOTE | 2022-10-18 22:33 | NUR ---
RN NOTE 1ST 15-MIN VS ARE FOLLOWS; BP 113/77, HR 141, 98% O2SAT, RR 30, TEMP 99.0
--- NOTE | 2022-10-18 22:44 | NUR ---
RN NOTE 2ND 15-MIN VS ARE FOLLOWS; BP 124/77, HR 141, 99% O2SAT, RR 25, TEMP 99.8. WILL ADMINISTER TYLENOL.
--- NOTE | 2022-10-18 22:52 | NUR ---
RN NOTE PT CURRENTLY UNDERGOING FFP TRANSFUSION, NOTED TO HAVE TEMP OF 99.8. PT ADMINISTERED TYLENOL 650 MG. WILL MONITOR FOR EFFECTIVENESS.
[2022-10-18] MEDS: ACETAMINOPHEN 325 MG TABLET PO PRN (22:53)
--- NOTE | 2022-10-18 23:15 | NUR ---
RN NOTE 30-MIN VS ARE FOLLOWS: BP 143/61, HR 145, TEMP 99.6, 100% O2SAT, RR 37.
--- NOTE | 2022-10-18 23:45 | NUR ---
RN NOTE FFP TRANSFUSION COMPLETE WITH FOLLOWING POST-TRANSFUSION VS: BP 118/70 ,HR 145, 99% O2SAT ,R 24, TEMP 101.8. COOLING MEASURES IN PLACE WITH ICE PACKS AND BLANKETS REMOVED. WILL CONTINUE TO MONITOR. Addendum: 10/19/22 at 0642 by [facility] AND TYLENOL 650 MG PO ADMINISTERED.
[2022-10-19] VITALS (53 sets, daily range): BP systolic 98–171; BP diastolic 37–118
--- NOTE | 2022-10-19 00:10 | NUR ---
RN NOTE TEMP RECHECKED 98.9; CONTINUES TO HAVE PERIODS OF RESTLESSNESS, BUT SLEEPS INTERMITTENTLY
[2022-10-19] MEDS: MORPHINE SULFATE INJ 2 MG/ML DISP.SYRIN IV PRN ×2 (00:44→08:18)
--- NOTE | 2022-10-19 00:44 | NUR ---
RN NOTE PT REPORTS OF 8/10 BACK PAIN. PT ADMINISTERED MORPHINE 2 MG IV. WILL MONITOR FOR EFFECTIVENESS.
[2022-10-19] MEDS ORDERED: DILTIAZEM HCL 25 MG IV ONE (00:51)
[2022-10-19] MEDS: DILTIAZEM HCL IV 125 MG in IV NS 0.9% 100 ML IV PRN ×2 (00:54→09:27)
[2022-10-19] MEDS: IV D5 LR 1,000 ML IV SCH ×5 (03:50→23:50)
[2022-10-19] MEDS: CEFEPIME 2 GM in IV D5W 100 ML IV SCH ×2 (03:51→15:25)
[2022-10-19 04:13] LABS: BASOPHILS % (AUTO) 0.1 % (0.0-2.0); EOSINOPHILS % (AUTO) 0.1 % (0.0-6.0); LYMPHOCYTES # (AUTO) 0.9 K/uL (0.8-4.8); LYMPHOCYTES % (AUTO) 5.2 % (20.0-44.0); MEAN CORPUSCULAR HGB CONC 33 g/dl (31.0-36.0); MEAN CORPUSCULAR VOLUME 90 fL (80-96); MONOCYTES # (AUTO) 0.9 K/uL (0.1-1.30); MONOCYTES % (AUTO) 5.3 % (2.0-12.0); NEUTROPHILS # (AUTO) 14.7 K/uL (1.8-8.9); NEUTROPHILS % (AUTO) 89.3 % (43.0-81.0); PLATELET COUNT (AUTO) 72 K/uL (150-450); RED BLOOD CELL COUNT(AUTO) 2.15 MIL/uL (4.5-6.0); WHITE BLOOD COUNT (AUTO) 16.5 K/uL (4.3-11.0)
[2022-10-19 04:21] LABS: HEMOGLOBIN 6.2 g/dL (13.5-17.5)
--- NOTE | 2022-10-19 04:21 | NUR ---
RN NOTE RECEIVED CRITICAL FROM LAB, HGB/HCT ; NOTIFIED ROCIO MCGEE, AWAITING RESPONSE. Addendum: 10/19/22 at 0600 by [facility] ROCIO MCGEE ORDERED [address] [facility]
[2022-10-19 04:22] LABS: HEMATOCRIT 20 % (39-51); HEMOGLOBIN 6.4 g/dL (13.5-17.5)
[2022-10-19 04:34] LABS: BILIRUBIN,TOTAL 2.9 mg/dL (0.2-1.0); CALCIUM, SERUM 7.8 mg/dL (8.5-10.1); CREATININE 1.2 mg/dL (0.6-1.3); PHOSPHORUS 2.1 mg/dL (2.5-4.9); POTASSIUM 3.3 mmol/L (3.5-5.1); TOTAL PROTEIN, SERUM 6.1 g/dL (6.4-8.2)
[2022-10-19 04:43] LABS: MAGNESIUM 1.2 mg/dL (1.8-2.4)
--- NOTE | 2022-10-19 06:42 | NUR ---
ARMY MANAGER CLOSING NOTE PT REMAINS IN BED, ASLEEP BUT EASILY AROUSABLE; SLEPT INTERMITTENTLY THROUGHOUT THE NIGHT WITH PERIODS OF RESTLESSNESS, REMOVING CABLES. CONTINUES TO BE ON 5L NC WITH O2SAT RANGING FROM 93%-100%; NO S/S OF RESP DISTRESS, NO SOB, NON-LABORED AND EQUAL BREATHING. ATTACHED TO BEDSIDE MONITOR, CONTINUES TO BE ST WITH HR LOW 115 AND HIGH 164. KRISTOFER MIDLINE INTACT AND PATENT, FLUSHES EASILY WITH NO RESISTANCE; D5LR INFUSING AT 200 ML/HR AND CARDIZEM AT 15 MG/HR. ALL DUE MEDS ADMINISTERED DURING THE NIGHT. BED IN LOWEST POSITION, CALL LIGHT WITHIN REACH, SIDE RAILS UP X3. WILL ENDORSE TO DAYSHIFT NURSE TO CONTINUE CARE.
--- NOTE | 2022-10-19 07:13 | NUR ---
SAMMYING MACHINE OPERATOR OPENING NOTE PT REMAINS IN BED, ASLEEP BUT EASILY AROUSABLE. ON 5L NC WITH O2SAT RANGING FROM 93%-100%; NO S/S OF RESP DISTRESS, NO SOB, NON-LABORED AND EQUAL BREATHING. ATTACHED TO BEDSIDE MONITOR, CONTINUES TO BE ST WITH HR LOW 115 AND HIGH 164. KRISTOFER MIDLINE INTACT AND PATENT, FLUSHES EASILY WITH NO RESISTANCE; D5LR INFUSING AT 200 ML/HR AND CARDIZEM AT 15 MG/HR. BED IN LOWEST POSITION, CALL LIGHT WITHIN REACH, SIDE RAILS UP X3. WILL CONTINUE PLAN OF CARE AND ANTICIPATE NEEDS.
[2022-10-19] MEDS ORDERED: Magnesium 1 GM/2 ML VIAL IV ONE (08:00)
[2022-10-19] MEDS: THIAMINE HCL 100 MG TABLET PO SCH (08:07)
[2022-10-19] MEDS: MULTIVITAMINS,THERAGRAN 1 UDTAB TABLET PO SCH (08:07)
[2022-10-19] MEDS: MAGNESIUM OXIDE 400 MG TABLET PO SCH (08:08)
[2022-10-19] MEDS: PANTOPRAZOLE 40 MG VIAL IV SCH ×2 (08:08→16:36)
[2022-10-19] MEDS: CHLORDIAZEPOXIDE HCL 25 MG CAPSULE PO SCH (08:08)
[2022-10-19] MEDS: LEVETIRACETAM (250 MG) 250 MG TABLET PO SCH ×2 (08:08→21:43)
[2022-10-19] MEDS: LISINOPRIL (20MG) 20 MG TABLET PO SCH (08:08)
[2022-10-19] MEDS: IV NS 0.9% 250 ML IV PRN (08:28)
--- NOTE | 2022-10-19 08:30 | NUR ---
PATIENT REFUSED BREAKFAST TRAY
[2022-10-19] MEDS: Magnesium 1GM/D5W 100ML PREMIX 100 ML IV SCH ×4 (08:44→12:06)
[2022-10-19] MEDS: POTASSIUM CL. PREMIX PERIPHER. 50 ML IV SCH ×4 (08:44→12:06)
[2022-10-19] MEDS: LORAZEPAM INJ 2 MG/ML VIAL IV SCH ×4 (09:37→21:55)
[2022-10-19 11:20] LABS: HEMOGLOBIN 6.3 g/dL (13.5-17.5)
--- NOTE | 2022-10-19 12:03 | NUR ---
CARDIZEM DRIP STOPPED PER DOCTOR TANCAMRYN
--- NOTE | 2022-10-19 12:54 | NUR ---
PRE BLOOD TRANSFUSION VITALS ARE FOLLOWS TEMPERATURE: 98.6 PULSE: 128 RESPIRATORY RATE 26 OXYGEN SATURATION: 99% bLOOD PRESSURE: 134/62
--- NOTE | 2022-10-19 13:00 | NUR ---
BLOOD TRANSFUSION STARTED. RATE OF 75 MLS/HR. WILL INCREASE PATIENT TOLERATES
--- NOTE | 2022-10-19 13:15 | NUR ---
PATIENT TOLERATING PRBC TRANSFUSION. RATE INCREASED TO 125 MLS/HR
[2022-10-19] MEDS ORDERED: NEUTRA PHOS 1 POWD.PACKET PO ONE (15:30)
[2022-10-19] MEDS: ACETAMINOPHEN 325 MG TABLET PO PRN (15:35)
--- NOTE | 2022-10-19 15:36 | NUR ---
PRN TYLENOL ADMINISTERED FOR TEMP OF 101 DEGREES FAHRENHEIT. WILL REASSESS TEMP IN ONE HOUR
[2022-10-19 15:39] LABS: LYMPHOCYTES % (MANUAL) 7 % (16-48); MONOCYTES % (MANUAL) 2 % (0-11.0); NEUTROPHILS % (MANUAL) 91 (42-76)
--- NOTE | 2022-10-19 15:47 | NUR ---
PATIENT TOLERATING TRANSFUSION. INCREASED RATE TO 150 MLS/HR
--- NOTE | 2022-10-19 16:44 | NUR ---
POST TRANSFUSION VITAL SIGNS ARE FOLLOWS TEMP: 99.1 PULSE 128 RR 25 O2: 98% BP: 128/69
[2022-10-19] MEDS ORDERED: IOHEXOL-350 100 ML VIAL IV ONE ×2 (16:49→17:18)
[2022-10-19] MEDS ORDERED: IV NS 0.9% 250 ML IV ONE (16:49)
[2022-10-19] MEDS ORDERED: CT SWABBABLE VALVE TRANS SET 1 EA INFUS.SET MC ONE (16:49)
--- NOTE | 2022-10-19 19:04 | NUR ---
HAND OFF REPORT GIVEN TO AME RIVER FOR CONTINUATION OF CARE
--- NOTE | 2022-10-19 19:20 | NUR ---
RN NOTE PATIENT IN BED, FAMILY AT BEDSIDE, AO X 1-2, IN NO ACUTE DISTRESS, ST ON THE MONITOR HR IS 121. SATURATION AT 99% ON 5L VIA NC, DECREASED O2 SUPPLEMENTATION TO 2L. IV LINE AT RAC 20G, AND KRISTOFER MIDLINE PATENT AND FLUSHING WELL WITH D5LR INFUSING AT 200 ML/HR, IV LINE AT R WRIST CLOGGED, REMOVED ASEPTICALLY. SAFETY MEASURES IN PLACE, BED IS LOCKED AND AT LOWEST POSITION, CALL LIGHT WITHIN REACH OF PATIENT. WILL CONT TO MONITOR AND REASSESS.
[2022-10-19] MEDS: LORAZEPAM INJ 2 MG/ML VIAL IV PRN (19:33)
[2022-10-19 20:06] LABS: HEMOGLOBIN 7.6 g/dL (13.5-17.5)
--- NOTE | 2022-10-19 22:08 | NUR ---
RN NOTE PATIENT APPEARS VERY LETHARGIC AND MAY ASPIRATE IF KEPPRA IS GIVEN PO, DR MCGEE WAS NOTIFIED, ORDERS RECEIVED TO CHANGE KEPPRA 500 PO TO KEPPRA 500 MG IV BID.
[2022-10-19] MEDS ORDERED: LEVETIRACETAM (500MG) 500 MG in IV NS 0.9% 100 ML IV SCH (22:30)
[2022-10-19] MEDS ORDERED: LEVETIRACETAM (500MG) 500 MG/5 ML VIAL IV ONE (22:42)
[2022-10-20] VITALS (25 sets, daily range): BP systolic 111–170; BP diastolic 27–98
--- NOTE | 2022-10-20 | NUR ---
RN NOTE PER AJITH RN AND ARYA RIVER, ALL 4 BAGS OF POTASSIUM CHLORIDE WERE ADMINISTERED/COMPLETED AT ICU.
[2022-10-20] MEDS: LORAZEPAM INJ 2 MG/ML VIAL IV SCH ×5 (01:27→17:26)
[2022-10-20] MEDS: ACETAMINOPHEN 325 MG TABLET PO PRN ×2 (03:52→10:22)
[2022-10-20] MEDS: CEFEPIME 2 GM in IV D5W 100 ML IV SCH ×2 (04:28→16:49)
[2022-10-20 04:54] LABS: HEMOGLOBIN 7.4 g/dL (13.5-17.5)
[2022-10-20] MEDS: IV D5 LR 1,000 ML IV SCH ×2 (05:10→10:39)
[2022-10-20 05:17] LABS: MAGNESIUM 1.6 mg/dL (1.8-2.4); PHOSPHORUS 1.5 mg/dL (2.5-4.9)
--- NOTE | 2022-10-20 05:56 | NUR ---
RN NOTE PATIENT COMPLAINS OF SOB AND NOTED WITH WHEEZING AND APPEARS LABORED DESPITE 99-100% O2 SAT ON 1L VIA NC. ABG RESULTED PH 7.510, PCO2 22.8, PO2 81.2, HCO3 17.8. DR MCGEE WAS NOTIFIED, ORDER RECEIVED FOR XOPENEZ 1.25 MG Q4 PRN FOR SOB/WHEEZING, AND TO ADMINISTER DUE ATIVAN 2MG PRN. SUPERVISOR CIG[employer] MAKING HAND SHEILA AWARE Addendum: 10/20/22 at 0646 by AME VIDES RN PATIENT IS RESTLESS, REMAINS TACHYPNEIC AND TACHYCARDIC WITH HR GOING UP TO 140'S
[2022-10-20] MEDS ORDERED: LEVALBUTEROL HCL NEB 1.25 MG/0.5 ML VIAL.NEB NEB PRN (06:30)
[2022-10-20] MEDS: LORAZEPAM INJ 2 MG/ML VIAL IV PRN (06:38)
[2022-10-20] MEDS: LEVALBUTEROL HCL NEB 1.25 MG/0.5 ML VIAL.NEB NEB PRN (06:38)
[2022-10-20] MEDS: MAGNESIUM OXIDE 400 MG TABLET PO SCH (08:49)
[2022-10-20] MEDS: PANTOPRAZOLE 40 MG VIAL IV SCH ×2 (08:49→17:26)
[2022-10-20] MEDS: LEVETIRACETAM (500MG) 500 MG in IV NS 0.9% 100 ML IV SCH (08:50)
[2022-10-20] MEDS: LISINOPRIL (20MG) 20 MG TABLET PO SCH (08:50)
[2022-10-20] MEDS: MULTIVITAMINS,THERAGRAN 1 UDTAB TABLET PO SCH (08:50)
[2022-10-20] MEDS: THIAMINE HCL 100 MG TABLET PO SCH (08:50)
[2022-10-20] MEDS ORDERED: MAGNESIUM OXIDE 400 MG TABLET PO ONE (10:00)
[2022-10-20 11:10] LABS: HEMOGLOBIN 7.6 g/dL (13.5-17.5)
[2022-10-20] MEDS: POTASSIUM PHOSPHATE MM 7.5 MMOL in IV NS 0.9% 100 ML IV SCH ×4 (11:22→20:00)
[2022-10-20] MEDS: IV NS 0.9% 250 ML IV PRN ×2 (11:23→16:55)
--- NOTE | 2022-10-20 19:54 | NUR ---
1950 PT DOWNGRADED AND TRANSFERRED TO TELE ROOM 104. GAVE REPORT TO ONCOMING NURSE MALENA RIVER FOR CONTINUATION OF CARE. PT IS STABLE, ALL DUE MEDICATIONS GIVEN.
[2022-10-20 19:57] LABS: HEMOGLOBIN 7.2 g/dL (13.5-17.5)
[2022-10-21] VITALS (9 sets, daily range): BP systolic 127–146; BP diastolic 62–90
[2022-10-21] MEDS: LEVETIRACETAM (500MG) 500 MG in IV NS 0.9% 100 ML IV SCH ×2 (01:01→09:03)
[2022-10-21] MEDS: LORAZEPAM INJ 2 MG/ML VIAL IV SCH ×3 (01:04→05:15)
[2022-10-21] MEDS: POTASSIUM PHOSPHATE MM 7.5 MMOL in IV NS 0.9% 100 ML IV SCH (01:06)
[2022-10-21 03:44] LABS: HEMOGLOBIN 7.1 g/dL (13.5-17.5)
[2022-10-21] MEDS: CEFEPIME 2 GM in IV D5W 100 ML IV SCH ×2 (04:36→15:34)
--- NOTE | 2022-10-21 07:10 | NUR ---
RN OPENING NOTE RECEIVED PT IN BED, ASLEEP, SATURATION 98% ON ROOM AIR, NO SOB/DISTRESS NOTED. IV ACCESS LEFT UPPER EXTREMITY MIDLINE 18G. VELEZ CATHETER IN PLACE, DRAINING YELLOW CLEAR URINE. PATIENT IS IN SOFT RESTRAINS DUE DESTRUCTIVE BEHAVIOR INTERFERING WITH MEDICAL CARE, NO S/S REDNESS OR SKIN BREAKDOWN. SAFETY MEASURE AND ASPIRATION PRECAUTIONS IMPLEMENTED. ON EXTERNAL AUTO TRANSMISSION TECHNICIAN SR 87 BPM. WILL CONTINUE TO MONITOR.
[2022-10-21 07:43] LABS: BASOPHILS % (AUTO) 0.2 % (0.0-2.0); HEMATOCRIT 22 % (39-51); HEMOGLOBIN 7.2 g/dL (13.5-17.5); LYMPHOCYTES # (AUTO) 0.9 K/uL (0.8-4.8); LYMPHOCYTES % (AUTO) 7.5 % (20.0-44.0); MEAN CORPUSCULAR HGB CONC 33 g/dl (31.0-36.0); MEAN CORPUSCULAR VOLUME 88 fL (80-96); MONOCYTES # (AUTO) 0.7 K/uL (0.1-1.30); MONOCYTES % (AUTO) 5.5 % (2.0-12.0); NEUTROPHILS # (AUTO) 10.7 K/uL (1.8-8.9); NEUTROPHILS % (AUTO) 85.8 % (43.0-81.0); PLATELET COUNT (AUTO) 117 K/uL (150-450); WHITE BLOOD COUNT (AUTO) 12.5 K/uL (4.3-11.0)
[2022-10-21 08:22] LABS: CALCIUM, SERUM 8.2 mg/dL (8.5-10.1); CREATININE 0.9 mg/dL (0.6-1.3); MAGNESIUM 1.3 mg/dL (1.8-2.4); PHOSPHORUS 2.4 mg/dL (2.5-4.9); POTASSIUM 3.2 mmol/L (3.5-5.1)
[2022-10-21] MEDS: MULTIVITAMINS,THERAGRAN 1 UDTAB TABLET PO SCH (09:03)
[2022-10-21] MEDS: MAGNESIUM OXIDE 400 MG TABLET PO SCH (09:03)
[2022-10-21] MEDS: THIAMINE HCL 100 MG TABLET PO SCH (09:03)
[2022-10-21] MEDS: PANTOPRAZOLE 40 MG VIAL IV SCH ×2 (09:04→16:28)
[2022-10-21] MEDS: LISINOPRIL (20MG) 20 MG TABLET PO SCH (09:04)
[2022-10-21] MEDS ORDERED: POTASSIUM CHLORIDE 20 MEQ TAB.PRT.SR PO ONE (10:00)
[2022-10-21 11:30] LABS: HEMOGLOBIN 6.8 g/dL (13.5-17.5)
--- NOTE | 2022-10-21 11:30 | NUR ---
PT COMPLAINED FOR HEADACHE, TYLENOL 650MG GIVEN.
--- NOTE | 2022-10-21 11:40 | NUR ---
PATIENTS HGB LEVEL 6.8. PER DR FRIEND, IF HGB LEVEL BELOW 7, INFUSE 1 UNIT OF RBC. DOCTOR NOTIFIED, ORDER FOR RBS PLACED.
[2022-10-21] MEDS: ACETAMINOPHEN 325 MG TABLET PO PRN ×2 (11:43→22:34)
[2022-10-21 16:28] LABS: EOSINOPHILS % (MANUAL) 2 % (0-4); LYMPHOCYTES % (MANUAL) 5 % (16-48); MONOCYTES % (MANUAL) 6 % (0-11.0); NEUTROPHILS % (MANUAL) 87 (42-76)
[2022-10-21] MEDS ORDERED: K PHOS NEUTRAL 250 MG TABLET PO ONE (16:30)
--- NOTE | 2022-10-21 17:00 | NUR ---
PATIENT MORE ALERT, RESPOND TO VERBAL STIMULI, ABLE TO PARTIALLY FEED HIMSELF. SOFT RESTRAIN REMOVED FOR NOW, PATIENT INSTRUCTED AND REASSURED TO NOT INTERFERE WITH CARE.
--- NOTE | 2022-10-21 18:37 | NUR ---
RN CLOSING NOTE PT IN BED, AWAKE, FAMILY AT BEDSIDE, SATURATION 99% ON 2L VIA NC, NO SOB/DISTRESS NOTED. IV ACCESS LEFT UPPER EXTREMITY MIDLINE 18G. VELEZ CATHETER IN PLACE, DRAINED 450CC CLEAR URINE. PATIENTS SOFT RESTRAINS REMOVED FOR NOW, NO S/S REDNESS OR SKIN BREAKDOWN. SAFETY MEASURE AND ASPIRATION PRECAUTIONS IMPLEMENTED. ON EXTERNAL WELT WHEELER SR 87 BPM. WILL ENDORSE TO THE [employer] MEAT PROCESSOR FOR [place].
[2022-10-21 19:49] LABS: HEMOGLOBIN 7.1 g/dL (13.5-17.5)
--- NOTE | 2022-10-21 19:55 | NUR ---
SPORTS UMPIRE OPENING NOTE PATIENT AWAKE WITH FAMILY AT BEDSIDE, ALERT/ORIENTED X 2, WITH SOME CONFUSION. PATIENT STABLE ON 2 LPM VIA NASAL CANNULA, NO S/S OF DISTRESS OR SOB NOTED, BREATHING EVEN AND UNLABORED. PATIENT ON EXTERNAL RECORDS COORDINATOR READING SINUS TACHY, HR: 129. IV ACCESS MEDHAT ML INTACT AND SALINE LOCKED, FLUSHING WELL. PATIENT AWAITING BLOOD TRANSFUSION, WAITING FOR BLOOD TO BE READY. VELEZ CATHETER IN PLACE AND DRAINING MONA URINE BY GRAVITY. SAFETY MEASURES IN PLACE: CALL LIGHT WITHIN REACH, SIDE RAILS UP X 3, BED LOCKED IN LOWEST POSITION, BED ALARM ON. WILL CONTINUE TO MONITOR PATIENT
--- NOTE | 2022-10-21 20:30 | NUR ---
FPGA DESIGN ENGINEER NOTE RESTRAINTS PLACED BACK ON PATIENT D/T PATIENT REMOVING NASAL CANNULA. WILL CONTINUE TO MONITOR
[2022-10-21] MEDS: LEVETIRACETAM (250 MG) 250 MG TABLET PO SCH (21:52)
[2022-10-21] MEDS: LEVALBUTEROL HCL NEB 1.25 MG/0.5 ML VIAL.NEB NEB PRN (22:07)
--- NOTE | 2022-10-21 22:14 | NUR ---
PHARMACY SERVICES REPRESENTATIVE NOTE PATIENT'S BLOOD TRANSFUSION STARTED, VITAL SIGNS WNL. WILL CONTINUE TO MONITOR PATIENT
--- NOTE | 2022-10-21 22:15 | NUR ---
ICER HAND NOTE PATIENT TACHYPNEIC, SHORT OF BREATH AND SOME WHEEZING NOTED DESPITE SPO2: 98%. PRN BREATHING TREATMENT REQUESTED, NOTIFIED RT. WILL CONTINUE TO MONITOR PATIENT
--- NOTE | 2022-10-21 22:35 | NUR ---
WASTE TRANSPORTATION TECHNICIAN NOTE PATIENT'S TEMP NOW 100.0. BLOOD TRANSFUSION ONGOING. TYLENOL 650 MG PO GIVEN ORDERED. WILL CONTINUE TO MONITOR PATIENT
[2022-10-22] VITALS (7 sets, daily range): BP systolic 116–149; BP diastolic 56–77
--- NOTE | 2022-10-22 01:15 | NUR ---
REFLOW OPERATOR NOTE BLOOD TRANSFUSION FINISHED, PATIENT TOLERATED WELL, NO ADVERSE REACTION. WILL CONTINUE TO MONITOR PATIENT
[2022-10-22] MEDS: LORAZEPAM INJ 2 MG/ML VIAL IV PRN (01:27)
--- NOTE | 2022-10-22 01:34 | NUR ---
SALES AGENT FOOD VENDING SERVICE NOTE PATIENT RESTLESS, ANXIOUS AND TACHYCARDIC. ATIVAN 2 MG IV GIVEN ORDERED, WILL CONTINUE TO MONITOR PATIENT
[2022-10-22] MEDS: MORPHINE SULFATE INJ 2 MG/ML DISP.SYRIN IV PRN ×4 (03:25→23:23)
[2022-10-22 03:26] LABS: HEMOGLOBIN 7.1 g/dL (13.5-17.5)
--- NOTE | 2022-10-22 03:29 | NUR ---
STITCH BONDING MACHINE TENDER HELPER NOTE PATIENT C/O 10/10 ABDOMINAL PAIN, ABDOMEN VERY DISTENDED. MORPHINE 2 MG IV GIVEN ORDERED. VITAL SIGNS WNL. WILL CONTINUE TO MONITOR PATIENT
[2022-10-22] MEDS: CEFEPIME 2 GM in IV D5W 100 ML IV SCH ×2 (04:29→15:44)
[2022-10-22] MEDS: ACETAMINOPHEN 325 MG TABLET PO PRN ×2 (04:55→18:07)
--- NOTE | 2022-10-22 04:56 | NUR ---
TECHNICAL PROGRAMS MANAGER NOTE PATIENT NOTED WITH LOW GRADE FEVER OF 100.1. TYLENOL 650 MG PO GIVEN ORDERED. WILL CONTINUE TO MONITOR PATIENT
--- NOTE | 2022-10-22 06:12 | NUR ---
STORE SALES LEADER CLOSING NOTE PATIENT SLEEPING IN BED, ALERT/ORIENTED X 1-2, CONFUSED. PATIENT STABLE ON 2 LPM VIA NASAL CANNULA, PATIENT TACHYPNEIC AND NOTED WITH SOME WHEEZING, HOWEVER SPO2: 98%, PRN BREATHING TX GIVEN BY RT THIS SHIFT. PATIENT ON EXTERNAL OBSTETRICS/GYNECOLOGY NURSE READING SINUS TACHY, HR: 120'S AND 130'S, CURRENTLY HR 128. IV ACCESS MEDHAT ML INTACT AND SALINE LOCKED, FLUSHING WELL, SALINE LOCKED, RIGHT HAND IV ACCESS INTACT AND SALINE LOCKED. EVLEZ CATHETER IN PLACE AND DRAINING MONA URINE BY GRAVITY, 800 ML OUTPUT. MEDICATIONS GIVEN ORDERED, PATIENT RECEIVED 1 UNIT PRBC THIS SHIFT, PATIENT NEEDS MET THROUGHOUT SHIFT. SAFETY MEASURES IN PLACE: CALL LIGHT WITHIN REACH, SIDE RAILS UP X 3, BED LOCKED IN LOWEST POSITION, BED ALARM ON. WILL ENDORSE TO DAYSHIFT RN FOR CONTINUITY OF CARE
[2022-10-22 06:24] LABS: BASOPHILS # (AUTO) 0.1 K/uL (0.0-0.2); BASOPHILS % (AUTO) 0.5 % (0.0-2.0); EOSINOPHILS % (AUTO) 0.9 % (0.0-6.0); HEMATOCRIT 21 % (39-51); LYMPHOCYTES # (AUTO) 0.9 K/uL (0.8-4.8); LYMPHOCYTES % (AUTO) 7.6 % (20.0-44.0); MEAN CORPUSCULAR HGB CONC 33 g/dl (31.0-36.0); MEAN CORPUSCULAR VOLUME 88 fL (80-96); MONOCYTES # (AUTO) 1.1 K/uL (0.1-1.30); MONOCYTES % (AUTO) 9.3 % (2.0-12.0); NEUTROPHILS # (AUTO) 9.7 K/uL (1.8-8.9); NEUTROPHILS % (AUTO) 81.7 % (43.0-81.0); PLATELET COUNT (AUTO) 140 K/uL (150-450); RED BLOOD CELL COUNT(AUTO) 2.43 MIL/uL (4.5-6.0); WHITE BLOOD COUNT (AUTO) 11.8 K/uL (4.3-11.0)
[2022-10-22 06:34] LABS: CALCIUM, SERUM 7.9 mg/dL (8.5-10.1); CREATININE 0.9 mg/dL (0.6-1.3); PHOSPHORUS 2.1 mg/dL (2.5-4.9); POTASSIUM 3.1 mmol/L (3.5-5.1)
[2022-10-22 06:38] LABS: MAGNESIUM 1.1 mg/dL (1.8-2.4)
--- NOTE | 2022-10-22 07:25 | NUR ---
RN OPENING NOTE RECEIVED PT SLEEPING IN BED, ALERT/ORIENTED X 3, CONFUSED. PATIENT STABLE ON 2 LPM VIA NASAL CANNULA, PATIENT TACHYPNEIC AND NOTED WITH SOME WHEEZING, HOWEVER SPO2: 98%, PATIENT ON EXTERNAL CUSTOM APPLICATOR READING SINUS TACHy CURRENTLY HR 129. IV ACCESS MEDHAT ML INTACT AND SALINE LOCKED, FLUSHING WELL, SALINE LOCKED, RIGHT HAND IV ACCESS INTACT AND SALINE LOCKED. VELEZ CATHETER IN PLACE AND DRAINING MONA URINE BY GRAVITY, PT ON SOFT BILATERAL WRIST RESTRAINTS. NO SKIN OR CIRCULATION ISSUES NOTED AT THIS TIME. ALL SAFETY MEASURES IN PLACE: CALL LIGHT WITHIN REACH, SIDE RAILS UP X 3, BED LOCKED IN LOWEST POSITION, BED ALARM ON.
--- NOTE | 2022-10-22 07:28 | NUR ---
notified re; patient's hgb 7.0 after i units of PRBC yesterday and magnesium was 1.1 waiting for returning call back
[2022-10-22] MEDS: MULTIVITAMINS,THERAGRAN 1 UDTAB TABLET PO SCH (08:22)
[2022-10-22] MEDS: PANTOPRAZOLE 40 MG VIAL IV SCH ×2 (08:22→16:03)
[2022-10-22] MEDS: LEVETIRACETAM (250 MG) 250 MG TABLET PO SCH ×2 (08:22→22:22)
[2022-10-22] MEDS: THIAMINE HCL 100 MG TABLET PO SCH (08:23)
[2022-10-22] MEDS: LISINOPRIL (20MG) 20 MG TABLET PO SCH (08:23)
[2022-10-22] MEDS ORDERED: POTASSIUM CHLORIDE 20 MEQ TAB.PRT.SR PO ONE (09:00)
[2022-10-22] MEDS ORDERED: K PHOS NEUTRAL 250 MG TABLET PO ONE (09:00)
[2022-10-22] MEDS ORDERED: Magnesium 1GM/D5W 100ML PREMIX PIGGYBACK IV ONE ×2 (10:00→13:00)
[2022-10-22] MEDS ORDERED: Magnesium 1GM/D5W 100ML PREMIX 100 ML IV SCH (10:00)
--- NOTE | 2022-10-22 10:34 | NUR ---
N NOTE PATIENT C/O 10/10 ABDOMINAL PAIN, ABDOMEN VERY DISTENDED. PT REQUESTING MORPHINE 2 MG IV GIVEN PRN. VITAL SIGNS WNL. PT STABLE
[2022-10-22 11:46] LABS: HEMOGLOBIN 7.2 g/dL (13.5-17.5)
--- NOTE | 2022-10-22 12:54 | NUR ---
rn note notified that pt has tea colored urine and swollen feet
[2022-10-22] MEDS: Magnesium 1GM/D5W 100ML PREMIX 100 ML IV SCH ×6 (13:09→21:03)
[2022-10-22] MEDS ORDERED: IV NS 0.9% 1,000 ML IV ONE (14:00)
[2022-10-22] MEDS ORDERED: VANCOMYCIN 1.5 GM in IV D5W 500ml IV ONE (16:00)
[2022-10-22] MEDS: ENSURE CLEAR 237 ML LIQUID (MIX BERRY) PO SCH (17:02)
--- NOTE | 2022-10-22 19:38 | NUR ---
RN CLOSING NOTE PT SLEEPING IN BED, ALERT/ORIENTED X 3, CONFUSED. PATIENT STABLE ON 2 LPM VIA NASAL CANNULA, PATIENT TACHYPNEIC AND NOTED WITH SOME WHEEZING, HOWEVER SPO2: 98%, PATIENT ON EXTERNAL SUPERVISOR ORE DRESSING READING SINUS TACHy CURRENTLY HR 120S-130S. IV ACCESS MEDHAT ML INTACT AND SALINE LOCKED, FLUSHING WELL, RIGHT HAND IV ACCESS INTACT AND SALINE LOCKED. VELEZ CATHETER IN PLACE AND DRAINING MONA COLOR URINE/TEA COLORED URINE BY GRAVITY, PT ON SOFT BILATERAL WRIST RESTRAINTS. NO SKIN OR CIRCULATION ISSUES NOTED AT THIS TIME. ALL SAFETY MEASURES IN PLACE: CALL LIGHT WITHIN REACH, SIDE RAILS UP X 3, BED LOCKED IN LOWEST POSITION, BED ALARM ON. ENDORSED TO IMPORT MANAGER RN FOR CONTUITY OF CARE
--- NOTE | 2022-10-22 19:40 | NUR ---
RN NOTE RECEIVED PT IN BED, ASLEEP, EASILY AROUSABLE BY VERBAL AND TACTILE STIMULI. RESPIRATIONS SLIGHTLY LABORED AND SOB, PT ON O2 AT 3LPM VIA NC. PT ATTACHED TO TELE MONITOR READING ST 116. PT APPEARS TO BE COMFORTABLE. FC IN PLACED, SECURED, DRAINING DARK MONA TEA COLORED URINE, NON-CLOUDY. IV ACCESS ON MEDHAT ML CURRENTLY INFUSING MAGNESIUM 100ML/HR, NO S/SX ON INFX AT SITE. HOB ELEVATED. SAFETY PRECAUTIONS OBSERVED AT ALL TIMES. WILL CONT POC.
[2022-10-22 20:08] LABS: HEMOGLOBIN 7.3 g/dL (13.5-17.5)
[2022-10-23] VITALS: BP 131/65
[2022-10-23] MEDS: CEFEPIME 2 GM in IV D5W 100 ML IV SCH ×2 (03:15→17:39)
[2022-10-23] MEDS: ACETAMINOPHEN 325 MG TABLET PO PRN ×2 (03:33→13:22)
[2022-10-23 04:00] VITALS: BP 139/76
[2022-10-23] MEDS: MORPHINE SULFATE INJ 2 MG/ML DISP.SYRIN IV PRN ×3 (04:14→17:39)
[2022-10-23] MEDS: VANCOMYCIN 1.5 GM in IV D5W 500ml IV SCH ×2 (05:01→18:17)
[2022-10-23 06:26] LABS: BASOPHILS # (AUTO) 0.1 K/uL (0.0-0.2); BASOPHILS % (AUTO) 0.6 % (0.0-2.0); EOSINOPHILS % (AUTO) 1.4 % (0.0-6.0); HEMATOCRIT 22 % (39-51); HEMOGLOBIN 7.6 g/dL (13.5-17.5); LYMPHOCYTES # (AUTO) 0.6 K/uL (0.8-4.8); LYMPHOCYTES % (AUTO) 6.3 % (20.0-44.0); MEAN CORPUSCULAR HGB CONC 34 g/dl (31.0-36.0); MEAN CORPUSCULAR VOLUME 88 fL (80-96); MONOCYTES % (AUTO) 9.8 % (2.0-12.0); NEUTROPHILS % (AUTO) 81.9 % (43.0-81.0); PLATELET COUNT (AUTO) 160 K/uL (150-450); RED BLOOD CELL COUNT(AUTO) 2.53 MIL/uL (4.5-6.0); WHITE BLOOD COUNT (AUTO) 9.8 K/uL (4.3-11.0)
[2022-10-23 06:52] LABS: PHOSPHORUS 1.9 mg/dL (2.5-4.9)
--- NOTE | 2022-10-23 07:13 | NUR ---
RN NOTE PT IN BED, CURRENTLY SLEEPING. VS REMAINS STABLE THROUGHOUT THE SHIFT. PT STILL ON 2L O2 VIA NC, STILL SLIGHTLY LABORED ANS SOB, HOB ELEVATED AT ALL TIMES. FC STILL DRAINING DARK MONA/TEA COLORED URINE. PT NOTED WITH C/O ABDOMINAL PAIN, PRN MEDICATION GIVEN ORDERED, ABD DISTENDED, PT STILL NOTED WITH MUCUOSY BM, NO N/V PER PREVIOUS AM SHIFT NURSE, AWARE, WILL ENDORSE TO AM SHIFT. ALL NEEDS ATTENDED. KEPT PT CLEAN, DRY, AND COMFORTABLE AT ALL TIMES. CALL LIGHT WITHIN EASY REACH.
[2022-10-23 08:00] VITALS: BP 114/67
[2022-10-23 08:10] LABS: BAND % (MANUAL) 4 % (0.0-5.0); EOSINOPHILS % (MANUAL) 2 % (0-4); LYMPHOCYTES % (MANUAL) 9 % (16-48); METAMYELOCYTES % 1 % (0-0); MONOCYTES % (MANUAL) 8 % (0-11.0); MYELOCYTES % 1 % (0-0); NEUTROPHILS % (MANUAL) 75 (42-76)
[2022-10-23] MEDS: ENSURE CLEAR 237 ML LIQUID (MIX BERRY) PO SCH ×2 (08:30→17:00)
[2022-10-23] MEDS: LISINOPRIL (20MG) 20 MG TABLET PO SCH (09:00)
[2022-10-23] MEDS: THIAMINE HCL 100 MG TABLET PO SCH (09:08)
[2022-10-23] MEDS: LEVETIRACETAM (250 MG) 250 MG TABLET PO SCH ×2 (09:08→20:11)
[2022-10-23] MEDS: PANTOPRAZOLE 40 MG VIAL IV SCH (09:08)
[2022-10-23] MEDS: MULTIVITAMINS,THERAGRAN 1 UDTAB TABLET PO SCH (09:08)
[2022-10-23 11:39] LABS: HEMOGLOBIN 7.2 g/dL (13.5-17.5)
[2022-10-23 12:00] VITALS: BP 123/53
[2022-10-23] MEDS: POTASSIUM CHLORIDE 20 MEQ TAB.PRT.SR PO SCH ×3 (12:12→14:37)
[2022-10-23] MEDS ORDERED: K PHOS NEUTRAL 250 MG TABLET PO ONE ×2 (13:00→13:30)
[2022-10-23] MEDS: LORAZEPAM INJ 2 MG/ML VIAL IV PRN ×2 (13:35→20:37)
[2022-10-23] MEDS ORDERED: IV NS 0.9% 1,000 ML IV SCH (15:00)
[2022-10-23 16:00] VITALS: BP 107/65
[2022-10-23] MEDS: PANTOPRAZOLE 40 MG TABLET.DR PO SCH (18:56)
[2022-10-23] MEDS: K PHOS NEUTRAL 250 MG TABLET PO SCH ×2 (19:01→20:04)
--- NOTE | 2022-10-23 19:30 | NUR ---
RN opening notes Pt is resting in bed accompanied by Pt's mom. Pt is alert and orientedx2. on 2 L NC. No SOB. no S/S of distress noted. Tele monitor showed S. tachy HR at 102. MEDHAT midline is clean, intact and infusing well magnesium. Darden cath is inplaced and draining dark pool tea colored. Bilateral soft wrist restraint is inplaced, skin is warm to touch and circulation is check Q 2hrs. safety precautions is maintained. bed at low position, brakes locked, side rails upX2, hob elevated and call light is within reach. will continue to monitor.
[2022-10-23 20:00] VITALS: BP 158/79
[2022-10-23] MEDS: Potassium Chloride 20 MEQ in IV NS 0.9% 1,000 ML IV SCH (20:03)
[2022-10-23 20:05] LABS: HEMOGLOBIN 7.5 g/dL (13.5-17.5)
--- NOTE | 2022-10-23 20:15 | NUR ---
RN CLOSING NOTE PT SLEEPING IN BED, ALERT/ORIENTED X 3, CONFUSED. PATIENT STABLE ON 2 LPM VIA NASAL CANNULA, PATIENT TACHYPNEIC AND NOTED WITH SOME WHEEZING, HOWEVER SPO2: 100%, PATIENT ON EXTERNAL AUTOMOTIVE DESIGN DRAFTER READING SINUS TACHY CURRENTLY HR 113 IV ACCESS MEDHAT ML INTACT AND SALINE LOCKED, FLUSHING WELL, RIGHT HAND IV ACCESS INTACT AND SALINE LOCKED. VELEZ CATHETER IN PLACE AND DRAINING MONA COLOR URINE/TEA COLORED URINE BY GRAVITY, PT ON SOFT BILATERAL WRIST RESTRAINTS. NO SKIN OR CIRCULATION ISSUES NOTED AT THIS TIME. ALL SAFETY MEASURES IN PLACE: CALL LIGHT WITHIN REACH, SIDE RAILS UP X 3, BED LOCKED IN LOWEST POSITION, BED ALARM ON. ENDORSED TO HARDWOOD FLOOR INSTALLER RN FOR CONTINUITY OF CARE
--- NOTE | 2022-10-23 20:38 | NUR ---
RN notes Pt is feeling anxious and restless. Administered ativan as ordered. safety precautions is maintained. Will continue to monitor.
[2022-10-23] MEDS: LEVALBUTEROL HCL NEB 1.25 MG/0.5 ML VIAL.NEB NEB PRN (20:39)
--- NOTE | 2022-10-23 20:40 | NUR ---
RN notes Pt is complaining sob. Called RT Bert, RT for breathing tx. RT at the bedside for breathing tx. will continue to monitor.
[2022-10-23] MEDS: METRONIDAZOLE 500 MG TABLET PO SCH (20:49)
[2022-10-24] VITALS (13 sets, daily range): BP systolic 140–169; BP diastolic 80–101
[2022-10-24] MEDS: ACETAMINOPHEN 325 MG TABLET PO PRN (00:19)
--- NOTE | 2022-10-24 00:20 | NUR ---
RN notes Pt is having mild temp 99.7 F. administered tylenol 650mg/po/prn as ordered. cooling measures is applied. will continue to monitor.
[2022-10-24] MEDS: MORPHINE SULFATE INJ 2 MG/ML DISP.SYRIN IV PRN ×3 (01:22→22:17)
--- NOTE | 2022-10-24 01:22 | NUR ---
RN notes Pt is complaining of abd. pain and lower back 10/10 on pain scale. administered morphine 2 mg/iv/prn as ordered for pain. safety precautions is maintained.
--- NOTE | 2022-10-24 03:30 | NUR ---
RN notes Pt's temp is 97.7 F.
[2022-10-24] MEDS: Potassium Chloride 20 MEQ in IV NS 0.9% 1,000 ML IV SCH ×3 (04:06→21:18)
[2022-10-24] MEDS: CEFEPIME 2 GM in IV D5W 100 ML IV SCH ×2 (04:16→16:06)
[2022-10-24] MEDS: METRONIDAZOLE 500 MG TABLET PO SCH ×3 (04:18→21:18)
[2022-10-24] MEDS: LORAZEPAM INJ 2 MG/ML VIAL IV PRN (05:00)
[2022-10-24] MEDS: LEVALBUTEROL HCL NEB 1.25 MG/0.5 ML VIAL.NEB NEB PRN (05:04)
[2022-10-24 06:10] LABS: BASOPHILS # (AUTO) 0.1 K/uL (0.0-0.2); BASOPHILS % (AUTO) 0.6 % (0.0-2.0); EOSINOPHILS % (AUTO) 1.4 % (0.0-6.0); HEMATOCRIT 21 % (39-51); LYMPHOCYTES # (AUTO) 0.9 K/uL (0.8-4.8); LYMPHOCYTES % (AUTO) 10.3 % (20.0-44.0); MEAN CORPUSCULAR HGB CONC 33 g/dl (31.0-36.0); MEAN CORPUSCULAR VOLUME 88 fL (80-96); MONOCYTES # (AUTO) 1.1 K/uL (0.1-1.30); MONOCYTES % (AUTO) 12.6 % (2.0-12.0); NEUTROPHILS # (AUTO) 6.7 K/uL (1.8-8.9); NEUTROPHILS % (AUTO) 75.1 % (43.0-81.0); PLATELET COUNT (AUTO) 208 K/uL (150-450); RED BLOOD CELL COUNT(AUTO) 2.43 MIL/uL (4.5-6.0); WHITE BLOOD COUNT (AUTO) 8.9 K/uL (4.3-11.0)
--- NOTE | 2022-10-24 06:20 | NUR ---
RN notes Received a phone call from [employer]. Pt's hemoglobin 7.0. Will continue to monitor.
--- NOTE | 2022-10-24 06:39 | NUR ---
RN closing notes Pt is resting in bed comfortably. Pt is alert and orientedx2 with episode of confusion. on 2 L NC. No SOB. no S/S of distress noted. Tele monitor showed S. tachy HR at 115. routine meds were given as ordered. MEDHAT midline is clean, intact and infusing well potassium chloride 20 meq with NS@ 120 ml/hr. Darden cath is inplaced and draining dark pool tea colored. Bilateral soft wrist restraint is inplaced, skin is warm to touch and circulation is check Q 2hrs. Kept Pt clean, dry and comfortable.safety precautions is maintained. bed at low position, brakes locked, side rails upX2, hob elevated and call light is within reach. Will endorse to am nurse for COSTA.
[2022-10-24 07:04] LABS: CREATININE 1.1 mg/dL (0.6-1.3); MAGNESIUM 1.4 mg/dL (1.8-2.4); PHOSPHORUS 1.6 mg/dL (2.5-4.9); POTASSIUM 3.7 mmol/L (3.5-5.1)
[2022-10-24] MEDS: ENSURE CLEAR 237 ML LIQUID (MIX BERRY) PO SCH ×3 (07:26→18:13)
[2022-10-24] MEDS: K PHOS NEUTRAL 250 MG TABLET PO SCH ×2 (08:10→21:18)
[2022-10-24] MEDS: MULTIVITAMINS,THERAGRAN 1 UDTAB TABLET PO SCH (08:10)
[2022-10-24] MEDS: PANTOPRAZOLE 40 MG TABLET.DR PO SCH ×2 (08:11→17:00)
[2022-10-24] MEDS: LEVETIRACETAM (250 MG) 250 MG TABLET PO SCH ×2 (08:12→21:18)
[2022-10-24] MEDS: THIAMINE HCL 100 MG TABLET PO SCH (08:12)
[2022-10-24] MEDS: LISINOPRIL (20MG) 20 MG TABLET PO SCH (08:36)
[2022-10-24] MEDS ORDERED: K PHOS NEUTRAL 250 MG TABLET PO ONE (10:30)
[2022-10-24] MEDS ORDERED: PHYTONADIONE 5 MG TABLET PO ONE (12:00)
--- NOTE | 2022-10-24 12:00 | NUR ---
RN NOTE PATIENT TAKEN TO ABDOMINAL CT SCAN AND PER DR. PINTO'S ORDER PATIENT TAKEN TO ICU ROOM #[id number] AFTER THE CT. REPORT GIVEN TO THE NURSE ARTUR.
[2022-10-24] MEDS ORDERED: PHYTONADIONE INJ 10 MG/1 ML AMPUL SQ ONE (12:30)
[2022-10-24] MEDS: Magnesium 1GM/D5W 100ML PREMIX 100 ML IV SCH ×4 (13:29→16:35)
--- NOTE | 2022-10-24 21:15 | NUR ---
ICU/RN: BLOOD TRANSFUSION COMPLETE NO S/S OF REACTION.
[2022-10-24 23:38] LABS: BAND % (MANUAL) 6 % (0.0-5.0); EOSINOPHILS % (MANUAL) 1 % (0-4); LYMPHOCYTES % (MANUAL) 10 % (16-48); MONOCYTES % (MANUAL) 12 % (0-11.0); NEUTROPHILS % (MANUAL) 71 (42-76)
[2022-10-25] VITALS (26 sets, daily range): BP systolic 124–171; BP diastolic 65–129
[2022-10-25] MEDS: MORPHINE SULFATE INJ 2 MG/ML DISP.SYRIN IV PRN ×3 (02:23→18:47)
[2022-10-25] MEDS: LORAZEPAM INJ 2 MG/ML VIAL IV PRN ×3 (04:07→20:04)
[2022-10-25] MEDS: CEFEPIME 2 GM in IV D5W 100 ML IV SCH ×2 (04:08→18:23)
[2022-10-25 04:25] LABS: BASOPHILS # (AUTO) 0.1 K/uL (0.0-0.2); HEMATOCRIT 23 % (39-51); HEMOGLOBIN 7.8 g/dL (13.5-17.5); LYMPHOCYTES # (AUTO) 0.9 K/uL (0.8-4.8); LYMPHOCYTES % (AUTO) 10.2 % (20.0-44.0); MEAN CORPUSCULAR HGB CONC 33 g/dl (31.0-36.0); MEAN CORPUSCULAR VOLUME 89 fL (80-96); MONOCYTES # (AUTO) 1.3 K/uL (0.1-1.30); NEUTROPHILS # (AUTO) 6.5 K/uL (1.8-8.9); NEUTROPHILS % (AUTO) 72.8 % (43.0-81.0); PLATELET COUNT (AUTO) 252 K/uL (150-450); RED BLOOD CELL COUNT(AUTO) 2.64 MIL/uL (4.5-6.0)
--- NOTE | 2022-10-25 04:25 | NUR ---
ICU/RN: PT EXTREMELY ANXIOUS AND RESTLESS. ATIVAN ADMINISTERED ORDERED.
[2022-10-25 04:42] LABS: CALCIUM, SERUM 8.3 mg/dL (8.5-10.1); CREATININE 0.9 mg/dL (0.6-1.3); MAGNESIUM 1.7 mg/dL (1.8-2.4); PHOSPHORUS 1.7 mg/dL (2.5-4.9); POTASSIUM 3.3 mmol/L (3.5-5.1)
[2022-10-25] MEDS: METRONIDAZOLE 500 MG TABLET PO SCH ×3 (05:06→20:04)
[2022-10-25] MEDS: Potassium Chloride 20 MEQ in IV NS 0.9% 1,000 ML IV SCH ×3 (05:06→22:03)
[2022-10-25 05:55] LABS: BASOPHILS % (MANUAL) 0 % (0.0-2.0); EOSINOPHILS % (MANUAL) 3 % (0-4); LYMPHOCYTES % (MANUAL) 8 % (16-48); MONOCYTES % (MANUAL) 14 % (0-11.0); NEUTROPHILS % (MANUAL) 75 (42-76)
[2022-10-25] MEDS: ENSURE CLEAR 237 ML LIQUID (MIX BERRY) PO SCH ×2 (08:49→17:00)
[2022-10-25] MEDS: THIAMINE HCL 100 MG TABLET PO SCH (09:11)
[2022-10-25] MEDS: PANTOPRAZOLE 40 MG TABLET.DR PO SCH ×2 (09:11→18:47)
[2022-10-25] MEDS: MULTIVITAMINS,THERAGRAN 1 UDTAB TABLET PO SCH (09:11)
[2022-10-25] MEDS: K PHOS NEUTRAL 250 MG TABLET PO SCH ×2 (09:11→20:04)
[2022-10-25] MEDS: LEVETIRACETAM (250 MG) 250 MG TABLET PO SCH ×2 (09:11→20:04)
[2022-10-25] MEDS: LISINOPRIL (20MG) 20 MG TABLET PO SCH (09:12)
[2022-10-25] MEDS ORDERED: MAGNESIUM OXIDE 400 MG TABLET PO ONE (10:30)
[2022-10-25] MEDS ORDERED: LACTULOSE 10 G/15 ML UDC (PYXIS) PO PRN (12:00)
--- NOTE | 2022-10-25 19:30 | NUR ---
PT AWAKE IN BED, ALERT/ORIENTED X 2, CONFUSED. PATIENT STABLE ON 2 LPM VIA NASAL CANNULA, SPO2: 100%, PATIENT ON EXTERNAL COLD WORKING INSPECTOR READING SINUS TACHY CURRENTLY HR IS 116. BP 160/87. MD AWARE. IV ACCESS ON KRISTOFER ML INFUSING NS WITH 20 MEQ KCL AT 120 ML/HR. VELEZ CATHETER IN PLACE AND DRAINING MONA COLOR URINE/TEA COLORED URINE BY GRAVITY, PT ON SOFT BILATERAL WRIST RESTRAINTS. NO SKIN OR CIRCULATION ISSUES NOTED AT THIS TIME. ALL SAFETY MEASURES IN PLACE: CALL LIGHT WITHIN REACH, SIDE RAILS UP X 3, BED LOCKED IN LOWEST POSITION, BED ALARM ON. WILL CONTINUE PLAN OF CARE.
--- NOTE | 2022-10-25 20:15 | NUR ---
PT COMPLAINS OF ARM AND BACK PAIN 04/19. PRN ATIVAN 2MG IV GIVEN NEEDED AND ORDERED. WILL CONTINUE TO MONITOR.
[2022-10-25] MEDS: ACETAMINOPHEN 325 MG TABLET PO PRN (20:31)
--- NOTE | 2022-10-25 20:45 | NUR ---
TEMP 100.2. TYLENOL 650MG PO GIVEN. WILL CONTINUE TO MONITOR.
[2022-10-26] VITALS (25 sets, daily range): BP systolic 128–173; BP diastolic 69–118
[2022-10-26] MEDS: MORPHINE SULFATE INJ 2 MG/ML DISP.SYRIN IV PRN ×5 (00:18→23:52)
[2022-10-26] MEDS: LORAZEPAM INJ 2 MG/ML VIAL IV PRN (03:42)
[2022-10-26] MEDS: METRONIDAZOLE 500 MG TABLET PO SCH ×3 (04:28→20:48)
[2022-10-26] MEDS: CEFEPIME 2 GM in IV D5W 100 ML IV SCH ×2 (04:28→17:09)
[2022-10-26 05:08] LABS: MAGNESIUM 1.2 mg/dL (1.8-2.4)
--- NOTE | 2022-10-26 05:32 | NUR ---
MAGNESIUM 1.2. CHARGE NURSE AND MD NOTIFIED.
[2022-10-26] MEDS: Potassium Chloride 20 MEQ in IV NS 0.9% 1,000 ML IV SCH ×2 (06:46→14:16)
--- NOTE | 2022-10-26 07:25 | NUR ---
PT AWAKE IN BED, ALERT/ORIENTED X 2, CONFUSED. PATIENT STABLE ON 2 LPM VIA NASAL CANNULA, SPO2: 100%, PATIENT ON EXTERNAL TOOTH CUTTER CONTACT WHEEL READING SINUS TACHY CURRENTLY HR IS 117. BP 147/100. IV ACCESS ON KRISTOFER ML INFUSING NS WITH 20 MEQ KCL AT 120 ML/HR. VELEZ CATHETER IN PLACE AND DRAINING MONA COLOR URINE/TEA COLORED URINE BY GRAVITY, PT ON SOFT BILATERAL WRIST RESTRAINTS. NO SKIN OR CIRCULATION ISSUES NOTED AT THIS TIME. ALL SAFETY MEASURES MAINTAINED. WILL ENDORSE TO NEXT NURSE ON DUTY FOR CONTINUITY OF CARE.
[2022-10-26] MEDS: ENSURE CLEAR 237 ML LIQUID (MIX BERRY) PO SCH ×2 (08:00→17:08)
--- NOTE | 2022-10-26 08:00 | NUR ---
RN NOTES RECEIVED PATIENT WAS COMPLAINING OF PAIN AT THIS TIME 8/10 GENERALIZED, A/O X4, ON O2-2LNC, PATIENT HAS DISTENDED ABDOMEN, HARD TO TOUCH, EDEMA GENERALIZED, MULTIPLE BRUISES ALL THE BODY. INFUSING NS/ 20MEQ @120ML/HR ON KRISTOFER MIDLINE INTACT. LAB VALUES REVIEWED, AND GET FOLLOW ORDERS. PATIENT REFUSED BREAKFAST, GIVEN SCHEDULED MEDICATION WITH JUICE, AND GIVEN SNACK. ASSIST TURN AND REPOSTION Q 2 HR, REVIEWED BILATERAL WRIST RESTRAIN Q 2 HR. NEEDS ATTENDED AND ANTICIPATED. VELEZ DRAINING VIA GRAVITY RADISH COLOR URINE. WILL FOLLOW UP.
--- NOTE | 2022-10-26 09:42 | NUR ---
rn notes administered morphine sulfate 2 mg/ml iv push for generalized pain 04/19 per patient request. bp 142/90, p-117, r-22, also administered scheduled medication, patient refused to eat breakfast. will follow up.
[2022-10-26] MEDS: MULTIVITAMINS,THERAGRAN 1 UDTAB TABLET PO SCH (09:43)
[2022-10-26] MEDS: LISINOPRIL (20MG) 20 MG TABLET PO SCH (09:43)
[2022-10-26] MEDS: Magnesium 1GM/D5W 100ML PREMIX 100 ML IV SCH ×4 (09:43→12:31)
[2022-10-26] MEDS: PANTOPRAZOLE 40 MG TABLET.DR PO SCH ×2 (09:43→17:00)
[2022-10-26] MEDS: LEVETIRACETAM (250 MG) 250 MG TABLET PO SCH ×2 (09:43→20:48)
[2022-10-26] MEDS: THIAMINE HCL 100 MG TABLET PO SCH (09:44)
[2022-10-26] MEDS: IV NS 0.9% 250 ML IV PRN (14:14)
--- NOTE | 2022-10-26 14:14 | NUR ---
rn notes administered morphine silfate 2 mg/ml iv push for generalized pain 10/10 per p[atient request, bp 138/108, p-114, r-24. also get order transferring patient to the tele unit 104.
--- NOTE | 2022-10-26 14:45 | NUR ---
RN NOTES TRANSFERRED PATIENT TO THE [facility] TELE UNIT ROOM 104 WITHIN STABLE CONDITION. BEDSIDE REPORT GIVEN RN FOLLOW PLAN OF CARE.
--- NOTE | 2022-10-26 14:45 | NUR ---
RN NOTE PATIENT TRANSFERRED FROM ICU UNIT TO ROOM 1004 VIA HIS BED ACCOMPANIED BY ALETA VARGAS AND KEON VELAZQUEZ AT THIS TIME. PATIENT IS AOX3 ABLE TO MAKE NEEDS KNOWN. DENIES PAIN OR ANY DISCOMFORT AT THIS TIME. VS TAKEN: BP 140/77, HR: 110 ORAL TEMP 98.2, RR 22 02 SAT OF 100% ON 2L NASAL CANULA. KRISTOFER IV ACCESS RUNNING NS 75MLS/HR. VELEZ CATHETER DRAINING MONA COLOR URINE VIA GRAVITY. BELONGINGS ACCOUNTED FOR. ALL SAFETY MEASURES IN PLACE, BED LOCKED IN LOWEST POSITION. CALL LIGHT WITHIN REACH. WILL CONTINUE TO MONITOR
--- NOTE | 2022-10-26 19:45 | NUR ---
PNEUDRAULIC SYSTEMS MECHANIC OPENING NOTE RECEIVED PATIENT IN BED, WITH FAMILY AT BEDSIDE, A/O X 2 WITH EPISODES OF CONFUSION. O2 VIA NC AT 2L. BREATHING EVEN AND UNLABORED. DENIES PAIN AT THIS TIME. ON TELE MONITOR ST WITH HR OF 113. KRISTOFER IV ACCESS RUNNING NS AT 75 ML/HR. ON BILATERAL SOFT RESTRAINTS. VELEZ CATHETER DRAINING MONA COLOR URINE VIA GRAVITY. ALL SAFETY MEASURES IN PLACE: BED LOCKED IN LOWEST POSITION, CALL LIGHT WITHIN REACH, SIDE RAILS UP X2. WILL CONTINUE TO MONITOR
--- NOTE | 2022-10-26 23:55 | NUR ---
JAVA DEVELOPMENT MANAGER NOTE PT COMPLAIN OF 8/10 BACK PAIN, MORPHINE 2MG ADMINISTERED. WILL CONTINUE TO MONITOR
[2022-10-27] VITALS: BP 129/80
[2022-10-27] MEDS: LORAZEPAM INJ 2 MG/ML VIAL IV PRN ×2 (02:51→10:15)
[2022-10-27] MEDS: CEFEPIME 2 GM in IV D5W 100 ML IV SCH (03:21)
[2022-10-27 04:00] VITALS: BP 124/92
[2022-10-27] MEDS: METRONIDAZOLE 500 MG TABLET PO SCH ×3 (05:07→20:49)
--- NOTE | 2022-10-27 06:40 | NUR ---
TELEPHONE TECHNICIAN CLOSING NOTE PT IN BED, ASLEEP, A/O X 2-3 WITH EPISODES OF CONFUSION, O2 VIA NC AT 2L. BREATHING EVEN AND UNLABORED. DENIES PAIN AT THIS TIME. ON TELE MONITOR ST WITH HR OF 119. KRISTOFER IV ACCESS ON SL. PATENT AND INTACT. ON BILATERAL SOFT RESTRAINTS. F/C DRAINING MONA COLOR URINE VIA GRAVITY. ALL DUE MEDS WERE GIVEN AND NEEDS ATTENDED. SAFETY MEASURES MAINTAINED: BED LOCKED IN LOWEST POSITION, CALL LIGHT WITHIN REACH, SIDE RAILS UP X2. WILL ENDORSE TO ONCOMING NURSE FOR COSTA.
--- NOTE | 2022-10-27 07:20 | NUR ---
SPRING COILER HAND OPENING NOTE RECEIVED PATIENT IN BED, WITH FAMILY AT BEDSIDE, A/O X 2 WITH EPISODES OF CONFUSION. O2 VIA NC AT 2L. BREATHING EVEN AND UNLABORED. DENIES PAIN AT THIS TIME. ON TELE MONITOR ST WITH HR OF 113. KRISTOFER MIDLINE IV ACCESS PUTTENT , FLUSHES WELL ON BILATERAL SOFT RESTRAINTS. VELEZ CATHETER DRAINING MONA COLOR URINE VIA GRAVITY. ALL SAFETY MEASURES IN PLACE: BED LOCKED IN LOWEST POSITION, CALL LIGHT WITHIN REACH, SIDE RAILS UP X2. WILL CONTINUE TO MONITOR
[2022-10-27 08:00] VITALS: BP 145/93
[2022-10-27] MEDS: ENSURE CLEAR 237 ML LIQUID (MIX BERRY) PO SCH ×2 (08:00→16:29)
[2022-10-27] MEDS: LISINOPRIL (20MG) 20 MG TABLET PO SCH (08:35)
[2022-10-27] MEDS: LEVETIRACETAM (250 MG) 250 MG TABLET PO SCH ×2 (08:35→20:49)
[2022-10-27] MEDS: THIAMINE HCL 100 MG TABLET PO SCH (08:35)
[2022-10-27] MEDS: PANTOPRAZOLE 40 MG TABLET.DR PO SCH ×2 (08:35→16:25)
[2022-10-27] MEDS: MULTIVITAMINS,THERAGRAN 1 UDTAB TABLET PO SCH (08:35)
[2022-10-27] MEDS: MORPHINE SULFATE INJ 2 MG/ML DISP.SYRIN IV PRN ×3 (08:38→20:49)
[2022-10-27 12:06] VITALS: BP 139/60
[2022-10-27] MEDS: ACETAMINOPHEN 325 MG TABLET PO PRN (12:14)
[2022-10-27] MEDS: Magnesium 1GM/D5W 100ML PREMIX 100 ML IV SCH ×4 (15:06→18:26)
[2022-10-27 16:19] VITALS: BP 114/60
--- NOTE | 2022-10-27 18:37 | NUR ---
RN CLOSING NOTE PATIENT IN BED, WITH FAMILY AT BEDSIDE, A/O X 2 WITH EPISODES OF CONFUSION. O2 VIA NC AT 2L. BREATHING EVEN AND UNLABORED. DENIES PAIN AT THIS TIME. ON TELE MONITOR ST WITH HR OF 113. KRISTOFER MIDLINE IV ACCESS PATENT , FLUSHES WELL ON BILATERAL SOFT RESTRAINTS. VELEZ CATHETER DRAINING MONA COLOR URINE VIA GRAVITY. ALL SAFETY MEASURES IN PLACE: BED LOCKED IN LOWEST POSITION, CALL LIGHT WITHIN REACH, SIDE RAILS UP X2. ALL MEDICATIONS WERE ADMINISRED , ALL NEEDS WERE MET .WILL ENDORSE AUDIOMETRIST NURSE TO FALLOW POC
--- NOTE | 2022-10-27 19:15 | NUR ---
RN NOTES RECEIVED PT FOR CONTINUITY OF CARE. PATIENT A/OX2-3 IN NO S/SX OF ACUTE DISTRESS AT THIS TIME; CURRENTLY ON 2L OF 02 VIA NC; WITH 02 SAT >95% AT THIS TIME. WITH IV ACCESS ON R UA MIDLINE PATENT, INTACT AND FLUSHING WELL. VELEZ CATH IN PLACE, MODERATE URINE OUTPUT NOTED. WITH BILATERAL SOFT RESTRAINTS IN PLACED, MONITORED AND ASSESSED PER PROTOCOL. WILL ENSURE SAFETY MEASURES WITHIN THE SHIFT. PATIENT BED ALARM IS ON. HEAD OF BED ELEVATED. BED IS LOCKED, IN LOWEST POSITION AND SIDE RAILS UP. CALL LIGHT WITHIN REACH OF THE PATIENT. WILL CONTINUE TO MONITOR AND REASSESS FOR ANY CHANGES AND WILL CARRY OUT ANY ONGOING AND ACTIVE MD ORDER.
[2022-10-27 20:00] VITALS: BP 128/62
[2022-10-28] VITALS: BP 155/77
[2022-10-28 04:00] VITALS: BP 133/84
--- NOTE | 2022-10-28 04:00 | NUR ---
RN NOTE PATIENT REMAINED TO BE IN NO SIGNS OF ACUTE RESPIRATORY DISTRESS, SAFE ENVIRONMENT MAINTAINED FOR PT. AM PATIENT CARE DONE. WILL CONTINUE TO MONITOR AND REASSESS FOR ANY CHANGES THROUGHOUT THE SHIFT.
[2022-10-28] MEDS: METRONIDAZOLE 500 MG TABLET PO SCH ×3 (04:33→21:24)
[2022-10-28] MEDS: MORPHINE SULFATE INJ 2 MG/ML DISP.SYRIN IV PRN ×4 (04:33→19:53)
--- NOTE | 2022-10-28 06:43 | NUR ---
RN CLOSING NOTE PATIENT REMAINS IN ROOM IN NO SIGNS OF RESPIRATORY DISTRESS, PATIENT STILL ON 2L OF 02 VIA NC ;TOLERATING WELL SATURATING @ >95% SP02. SAFETY MEASURES IMPLEMENTED, BED IN LOWEST POSITION, LOCKED, SIDE RAILS UP, CALL LIGHT WITHIN REACH. ALL NEEDS AND ORDERS ADDRESSED DURING THE SHIFT. IV ACCESS MAINTAINED INTACT, SECURED AND FLUSHING WELL. ALL DUE MEDS GIVEN ORDERED & SCHEDULED ; PATIENT TOLERATED WELL. PAIN MEDS PRN GIVEN 2X DURING THE SHIFT. PATIENT KEPT CLEAN AND COMFORTABLE WITHIN THE SHIFT. PATIENT ENDORSED TO INCOMING SHIFT RN WITH STABLE VITAL SIGN AND FOR CONTINUITY OF CARE.
--- NOTE | 2022-10-28 07:18 | NUR ---
MECHANIC INSULATOR OPENING NOTE RECEIVED PATIENT IN BED, SLEEPING , EASILY AWAKES A/O X 2 WITH EPISODES OF CONFUSION. O2 VIA NC AT 2L. BREATHING EVEN AND UNLABORED. DENIES PAIN AT THIS TIME. ON TELE MONITOR ST WITH HR OF 112. KRISTOFER MIDLINE IV ACCESS PATENT , FLUSHES WELL ON BILATERAL SOFT RESTRAINTS. VELEZ CATHETER DRAINING MONA COLOR URINE VIA GRAVITY. ALL SAFETY MEASURES IN PLACE: BED LOCKED IN LOWEST POSITION, CALL LIGHT WITHIN REACH, SIDE RAILS UP X2. WILL CONTINUE TO MONITOR
[2022-10-28 07:28] LABS: CALCIUM, SERUM 8.8 mg/dL (8.5-10.1); POTASSIUM 3.9 mmol/L (3.5-5.1)
[2022-10-28] MEDS: ENSURE CLEAR 237 ML LIQUID (MIX BERRY) PO SCH ×2 (07:43→16:10)
[2022-10-28 08:07] VITALS: BP 145/72
[2022-10-28] MEDS: LISINOPRIL (20MG) 20 MG TABLET PO SCH (08:16)
[2022-10-28] MEDS: LEVETIRACETAM (250 MG) 250 MG TABLET PO SCH ×2 (08:16→21:23)
[2022-10-28] MEDS: THIAMINE HCL 100 MG TABLET PO SCH (08:16)
[2022-10-28] MEDS: MULTIVITAMINS,THERAGRAN 1 UDTAB TABLET PO SCH (08:16)
[2022-10-28] MEDS: PANTOPRAZOLE 40 MG TABLET.DR PO SCH ×2 (08:17→16:10)
[2022-10-28 12:00] VITALS: BP 122/63
[2022-10-28] MEDS: ACETAMINOPHEN 325 MG TABLET PO PRN (12:20)
[2022-10-28] MEDS: LORAZEPAM INJ 2 MG/ML VIAL IV PRN (13:10)
[2022-10-28 13:22] LABS: BASOPHILS % (AUTO) 0.3 % (0.0-2.0); EOSINOPHILS % (AUTO) 1.8 % (0.0-6.0); HEMATOCRIT 23 % (39-51); HEMOGLOBIN 7.4 g/dL (13.5-17.5); LYMPHOCYTES # (AUTO) 1.9 K/uL (0.8-4.8); LYMPHOCYTES % (AUTO) 18.1 % (20.0-44.0); MEAN CORPUSCULAR HGB CONC 32 g/dl (31.0-36.0); MEAN CORPUSCULAR VOLUME 90 fL (80-96); MONOCYTES # (AUTO) 1.3 K/uL (0.1-1.30); MONOCYTES % (AUTO) 11.7 % (2.0-12.0); NEUTROPHILS # (AUTO) 7.3 K/uL (1.8-8.9); NEUTROPHILS % (AUTO) 68.1 % (43.0-81.0); PLATELET COUNT (AUTO) 348 K/uL (150-450); RED BLOOD CELL COUNT(AUTO) 2.51 MIL/uL (4.5-6.0); WHITE BLOOD COUNT (AUTO) 10.8 K/uL (4.3-11.0)
[2022-10-28 16:01] VITALS: BP 126/70
[2022-10-28 17:49] LABS: BAND % (MANUAL) 1 % (0.0-5.0); LYMPHOCYTES % (MANUAL) 15 % (16-48); METAMYELOCYTES % 1 % (0-0); MONOCYTES % (MANUAL) 10 % (0-11.0); NEUTROPHILS % (MANUAL) 73 (42-76)
--- NOTE | 2022-10-28 18:32 | NUR ---
CORN COOKER CLOSING NOTE PATIENT IN BED, ALERT , ORIENTED TIMES 2 ,O2 VIA NC AT 2L. BREATHING EVEN AND UNLABORED O2 SAT 98% DENIES PAIN AT THIS TIME. ON TELE MONITOR ST WITH HR OF 104. KRISTOFER MIDLINE IV ACCESS PATENT , FLUSHES WELL ON BILATERAL SOFT RESTRAINTS. VELEZ CATHETER DRAINING MONA COLOR URINE VIA GRAVITY.ALL MEDICATIONS WERE ADMINISTERED, ALL NEEDS WERE MET. SAFETY MEASURES IN PLACE: BED LOCKED IN LOWEST POSITION, CALL LIGHT WITHIN REACH, SIDE RAILS UP X2. WILL ENDORSE CLIPPER MACHINE OPERATOR NURE TO FALLOW POC
[2022-10-28 20:00] VITALS: BP 128/51
[2022-10-29] VITALS: BP 133/69
[2022-10-29] MEDS: MORPHINE SULFATE INJ 2 MG/ML DISP.SYRIN IV PRN ×4 (01:42→20:07)
[2022-10-29 04:00] VITALS: BP 125/65
[2022-10-29] MEDS: METRONIDAZOLE 500 MG TABLET PO SCH ×3 (05:10→20:07)
--- NOTE | 2022-10-29 07:10 | NUR ---
RN NOTE RECEIVED PATIENT IN BED RESTING ALERT ORIENTED X1 VERBALLY RESPONSIVE ON 2L OXYGEN VIA NASAL CANNULA,O2:95% IV SITE IS ON RIGHT UPPER ARM MIDLINE INTACT PATENT,VELEZ CATH IN PLACE URINE DRAINING ORANGE BY GRAVITY,SAFETY MEASURE IMPLEMENT BED IN LOW POSITION AND LOCKED,BED ALARM IS ON,HEAD OF THE BED ELEVATED CONTINUE TO MONITOR.
[2022-10-29 08:00] VITALS: BP 137/71
[2022-10-29] MEDS: ENSURE CLEAR 237 ML LIQUID (MIX BERRY) PO SCH ×2 (08:03→17:03)
[2022-10-29] MEDS: THIAMINE HCL 100 MG TABLET PO SCH (08:25)
[2022-10-29] MEDS: LEVETIRACETAM (250 MG) 250 MG TABLET PO SCH ×2 (08:25→20:07)
[2022-10-29] MEDS: LISINOPRIL (20MG) 20 MG TABLET PO SCH (08:25)
[2022-10-29] MEDS: PANTOPRAZOLE 40 MG TABLET.DR PO SCH ×2 (08:25→16:54)
[2022-10-29] MEDS: MULTIVITAMINS,THERAGRAN 1 UDTAB TABLET PO SCH (08:26)
[2022-10-29] MEDS: FUROSEMIDE 40 MG/4 ML VIAL IV SCH ×2 (11:15→16:54)
[2022-10-29] MEDS: SPIRONOLACTONE 25 MG TABLET PO SCH (11:15)
[2022-10-29 12:00] VITALS: BP 108/62
[2022-10-29 16:00] VITALS: BP 107/54
--- NOTE | 2022-10-29 18:23 | NUR ---
RN NOTE PATIENT REMAINS ALERT ORIENTED X1 VERBALLY RESPONSIVE ON 2L OXYGEN VIA NASAL CANNULA,O2:95% NO SOB NOT ACUTE DISTRESS NOTED,ALL DUE MEDS GIVEN MD ORDERED,VELEZ CATH IN PLACE,IV SITE IS ON RIGHT UPPER ARM MIDLINE INTACT PATENT,KEPT CLEAN AND DRY ALL THE TIME,HEAD OF THE BED ELEVATED ALL THE TIME,ENDORSE NEXT COMING SHIFT FOR CONTINUATION OF CARE.
--- NOTE | 2022-10-29 19:30 | NUR ---
WOOD DRILL OPERATOR OPENING NOTE RECEIVED PATIENT IN BED, WITH HOB ELEVATED, AWAKE, ALERT AND ORIENTED X1-2. AFEBRILE AND NOT IN ANY FORM OF ACUTE DISTRESS. ON O2 INHALATION VIA NASAL CANNULA AT 2LPM. ON TELE MONITORING WITH CURRENT READING OF ST 122. WITH IV ACCESS ON KRISTOFER MIDLINE-SL. WITH INTACT VELEZ CATHETER, DRAINING WELL WITH MONA COLORED URINE OUTPUT, NO HEMATURIA OR SEDIMENTS NOTED. SAFETY MEASURES IN PLACE. KEPT BED IN LOCKED AND IN LOW POSITION. SIDE RAILS UP X2. ADVISED TO USE THE CALL LIGHT WHEN IN NEED OF ASSISTANCE.
[2022-10-29 20:00] VITALS: BP 112/58
[2022-10-30] VITALS: BP 121/56
[2022-10-30] MEDS: MORPHINE SULFATE INJ 2 MG/ML DISP.SYRIN IV PRN ×4 (01:08→22:54)
[2022-10-30] MEDS: LORAZEPAM INJ 2 MG/ML VIAL IV PRN (03:15)
--- NOTE | 2022-10-30 03:16 | NUR ---
DAIRY CATTLE FARM WORKER NOTE PATIENT WAS NOTED WITH SHAKY HANDS AND WAS NOTED WITH AGITATION. PRN ATIVAN WAS GIVEN.
[2022-10-30 04:00] VITALS: BP 133/65
[2022-10-30] MEDS: METRONIDAZOLE 500 MG TABLET PO SCH ×3 (04:07→21:23)
--- NOTE | 2022-10-30 06:30 | NUR ---
STAMPING DIE TRY OUT WORKER CLOSING NOTE PATIENT IN BED, WITH HOB ELEVATED, ASLEEP BUT EASY TO AROUSE AND RESPONSIVE. ALERT AND ORIENTED 2. AFEBRILE AND NOT IN ANY FORM OF ACUTE DISTRESS. ON O2 INHALATION VIA NASAL CANNULA AT 2LPM. ON TELE MONITORING WITH CURRENT READING OF ST 109. WITH IV ACCESS ON KRISTOFER MIDLINE-SL. WITH INTACT VELEZ CATHETER, DRAINING WELL WITH DARK BROWN URINE OUTPUT D/T FLAGYL, NO HEMATURIA OR SEDIMENTS NOTED. MEDICATED ORDERED. CONTINUOUS ON PO ATB, MONITORED FOR ANY ADVERSE REACTION. SAFETY MEASURES IN PLACE. KEPT BED IN LOCKED AND IN LOW POSITION. SIDE RAILS UP X2. ADVISED TO USE THE CALL LIGHT WHEN IN NEED OF ASSISTANCE. ALL NURSING NEEDS ATTENDED. ENDORSED TO INCOMING SHIFT FOR CONTINUITY OF CARE.
--- NOTE | 2022-10-30 07:30 | NUR ---
CLINICAL DATA ASSOCIATE AM NOTE RECEIVED PATIENT IN BED, ASLEEP, EASILY ROUSES TO NAME AND TOUCH. ALERT AND ORIENTED X1-2. AFEBRILE, ABLE TO MAKE NEEDS KNOWN. ON 2L O2 NC. RESPIRATION UNLABORED. NO ACUTE DISTRESS. ST HR 109 ON MONITOR. TIFFANIE PAIN/DISCOMFORT. IV ACCESS KRISTOFER MIDLINE SL, FLUSHES WELL, SITE CLEAR. SEE NURSING FLOWSHEET FOR SKIN ISSUES. FOELY CATH IN PLACE DRAINING TO GRAVITY. CLEAR MONA URINE. SAFETY MEASURES IN PLACE. KEPT BED IN LOCKED AND IN LOW POSITION. SIDE RAILS UP X2. ADVISED TO USE THE CALL LIGHT WHEN IN NEED OF ASSISTANCE. POC DISCUSSED. VERBALIZED UNDERSTANDING. WILL CONT TO MONITOR.
[2022-10-30 08:00] VITALS: BP 127/67
[2022-10-30] MEDS: ENSURE CLEAR 237 ML LIQUID (MIX BERRY) PO SCH ×2 (08:11→16:09)
[2022-10-30] MEDS: LEVETIRACETAM (250 MG) 250 MG TABLET PO SCH ×2 (08:35→21:24)
[2022-10-30] MEDS: FUROSEMIDE 40 MG/4 ML VIAL IV SCH ×2 (08:35→16:09)
[2022-10-30] MEDS: THIAMINE HCL 100 MG TABLET PO SCH (08:36)
[2022-10-30] MEDS: SPIRONOLACTONE 25 MG TABLET PO SCH (08:36)
[2022-10-30] MEDS: MULTIVITAMINS,THERAGRAN 1 UDTAB TABLET PO SCH (08:36)
[2022-10-30] MEDS: PANTOPRAZOLE 40 MG TABLET.DR PO SCH ×2 (08:36→16:09)
--- NOTE | 2022-10-30 08:36 | NUR ---
RN NOTES ADMINISTERED MORPHINE SULFATE 2 MG IV. PULLED OUT FROM THE OMNICELL BUT FOR SOME REASON, SCANNED WITH AM MEDS, BUT DID NOT SAVE.
[2022-10-30] MEDS: LISINOPRIL (20MG) 20 MG TABLET PO SCH (08:37)
--- NOTE | 2022-10-30 09:30 | NUR ---
RN NOTES DUE MEDS GIVEN
[2022-10-30 12:00] VITALS: BP 124/64
[2022-10-30] MEDS: LACTULOSE 10 G/15 ML UDC (PYXIS) PO SCH ×2 (12:33→17:06)
[2022-10-30 16:00] VITALS: BP 107/55
--- NOTE | 2022-10-30 18:33 | NUR ---
PERFORMING ARTIST CLOSING NOTE PATIENT RESTING IN BED, ALERT AND ORIENTED X1-2. AFEBRILE, ABLE TO MAKE NEEDS KNOWN. ON ROOM AIR O2 SAT 100%. RESPIRATION UNLABORED. NO ACUTE DISTRESS. ST HR 120 ON MONITOR. TIFFANIE PAIN/DISCOMFORT. IV ACCESS KRISTOFER MIDLINE SL, FLUSHES WELL, SITE CLEAR. VELEZ CATH IN PLACE DRAINING TO GRAVITY. CLEAR MONA URINE. 1150 ML OUTPUT SAFETY MEASURES IN PLACE. KEPT BED IN LOCKED AND IN LOW POSITION. SIDE RAILS UP X2. ADVISED TO USE THE CALL LIGHT WHEN IN NEED OF ASSISTANCE. ALL NEEDS MET. PM CARE DONE EARLIER. WILL ENDORSE TO NEXT SHIFT FOR COSTA.
[2022-10-30 20:00] VITALS: BP 127/67
[2022-10-31] MEDS: LACTULOSE 10 G/15 ML UDC (PYXIS) PO SCH ×4 (00:05→17:28)
[2022-10-31 02:06] VITALS: BP 99/57
[2022-10-31] MEDS: MORPHINE SULFATE INJ 2 MG/ML DISP.SYRIN IV PRN ×4 (02:57→17:28)
[2022-10-31 04:00] VITALS: BP 125/82
[2022-10-31] MEDS: METRONIDAZOLE 500 MG TABLET PO SCH ×3 (05:48→21:27)
[2022-10-31 05:49] LABS: BASOPHILS # (AUTO) 0.3 K/uL (0.0-0.2); BASOPHILS % (AUTO) 2.2 % (0.0-2.0); EOSINOPHILS % (AUTO) 3.6 % (0.0-6.0); HEMATOCRIT 24 % (39-51); HEMOGLOBIN 7.8 g/dL (13.5-17.5); LYMPHOCYTES # (AUTO) 3.2 K/uL (0.8-4.8); LYMPHOCYTES % (AUTO) 25.7 % (20.0-44.0); MEAN CORPUSCULAR HGB CONC 33 g/dl (31.0-36.0); MEAN CORPUSCULAR VOLUME 90 fL (80-96); MONOCYTES # (AUTO) 1.6 K/uL (0.1-1.30); MONOCYTES % (AUTO) 13.1 % (2.0-12.0); NEUTROPHILS # (AUTO) 6.9 K/uL (1.8-8.9); NEUTROPHILS % (AUTO) 55.4 % (43.0-81.0); PLATELET COUNT (AUTO) 472 K/uL (150-450); RED BLOOD CELL COUNT(AUTO) 2.64 MIL/uL (4.5-6.0); WHITE BLOOD COUNT (AUTO) 12.4 K/uL (4.3-11.0)
[2022-10-31 06:11] LABS: ALBUMIN 2.1 g/dL (3.4-5.0); BILIRUBIN,DIRECT 4.9 mg/dL (0.0-0.2); BILIRUBIN,TOTAL 5.9 mg/dL (0.2-1.0); CALCIUM, SERUM 8.7 mg/dL (8.5-10.1); CREATININE 1.4 mg/dL (0.6-1.3); POTASSIUM 3.3 mmol/L (3.5-5.1); TOTAL PROTEIN, SERUM 7.3 g/dL (6.4-8.2)
--- NOTE | 2022-10-31 07:20 | NUR ---
RN NOTES PER NIGHTSHIFT, PT'S MAGNESIUM LEVEL IS 1.0. NOTIFIED CAMILLA MIR DNP.
--- NOTE | 2022-10-31 07:30 | NUR ---
ALARM SIGNAL OPERATOR AM NOTE RECEIVED PATIENT IN BED, ASLEEP, EASILY ROUSES TO NAME AND TOUCH. ALERT AND ORIENTED X 2. AFEBRILE, ABLE TO MAKE NEEDS KNOWN. ROOM AIR. O2 SAT 99%. RESPIRATION UNLABORED. NO ACUTE DISTRESS. ST HR 119 ON MONITOR. TIFFANIE PAIN/DISCOMFORT. IV ACCESS KRISTOFER MIDLINE SL, FLUSHES WELL, SITE CLEAR. SEE NURSING FLOWSHEET FOR SKIN ISSUES. FOELY CATH IN PLACE DRAINING TO GRAVITY. CLEAR MONA URINE. SAFETY MEASURES IN PLACE. KEPT BED IN LOCKED AND IN LOW POSITION. SIDE RAILS UP X2. ADVISED TO USE THE CALL LIGHT WHEN IN NEED OF ASSISTANCE. POC DISCUSSED. VERBALIZED UNDERSTANDING. WILL CONT TO MONITOR.
--- NOTE | 2022-10-31 07:45 | NUR ---
RN NOTES PT'S MAGNESIUM LEVEL IS 1.0. NOTIFIED ALEJANDRO PADGETT ELECTROMECHANICAL TECHNICIAN. NEW ORDER TO GIVE MAGNESIUM 4 GM.
[2022-10-31 08:00] VITALS: BP 121/71
[2022-10-31] MEDS: ENSURE CLEAR 237 ML LIQUID (MIX BERRY) PO SCH (08:11)
[2022-10-31] MEDS ORDERED: Magnesium 1GM/D5W 100ML PREMIX 100 ML IV SCH (08:30)
[2022-10-31] MEDS: Magnesium 1GM/D5W 100ML PREMIX 100 ML IV SCH ×4 (08:57→11:52)
[2022-10-31] MEDS: FUROSEMIDE 40 MG/4 ML VIAL IV SCH (08:57)
[2022-10-31] MEDS: SPIRONOLACTONE 25 MG TABLET PO SCH (08:57)
[2022-10-31] MEDS: THIAMINE HCL 100 MG TABLET PO SCH (08:57)
[2022-10-31] MEDS: PANTOPRAZOLE 40 MG TABLET.DR PO SCH ×2 (08:58→17:27)
[2022-10-31] MEDS: LEVETIRACETAM (250 MG) 250 MG TABLET PO SCH ×2 (08:58→21:27)
[2022-10-31] MEDS: MULTIVITAMINS,THERAGRAN 1 UDTAB TABLET PO SCH (08:58)
[2022-10-31] MEDS: LISINOPRIL (20MG) 20 MG TABLET PO SCH (09:00)
--- NOTE | 2022-10-31 09:30 | NUR ---
RN NOTES DUE MEDS GIVEN
--- NOTE | 2022-10-31 10:55 | NUR ---
RN NOTES DR. PINTO NOTIFIED, PT COMPLAINING OF DISCOMFORT ON RIGHT LOWER BACK. ASSESSED, NO SKIN BREAKDOWN. PATIENT REPOSITIONED WITH PILLOWS AND INSTRUCTED TO TURN FROM SIDE TO SIDE. NO NEW ORDER RECEIVED FROM DR. PINTO
[2022-10-31 11:16] LABS: BAND % (MANUAL) 3 % (0.0-5.0); EOSINOPHILS % (MANUAL) 4 % (0-4); LYMPHOCYTES % (MANUAL) 11 % (16-48); MONOCYTES % (MANUAL) 14 % (0-11.0); NEUTROPHILS % (MANUAL) 68 (42-76)
[2022-10-31 12:00] VITALS: BP 126/68
[2022-10-31] MEDS ORDERED: ENSURE CLEAR 237 ML LIQUID (MIX BERRY) PO PRN (12:00)
[2022-10-31 16:00] VITALS: BP 106/64
--- NOTE | 2022-10-31 18:34 | NUR ---
SEA[employer]OD TECHNOLOGY SPECIALIST CLOSING NOTE PATIENT RESTING IN BED, ALERT AND ORIENTED X 2. AFEBRILE, ABLE TO MAKE NEEDS KNOWN. ON ROOM AIR O2 SAT 96%. RESPIRATION UNLABORED. NO ACUTE DISTRESS. ST HR 117 ON MONITOR. TIFFANIE PAIN/DISCOMFORT. IV ACCESS KRISTOFER MIDLINE SL, FLUSHES WELL, SITE CLEAR. VELEZ CATH IN PLACE DRAINING TO GRAVITY. CLEAR MONA URINE. 1350 ML OUTPUT SAFETY MEASURES IN PLACE. KEPT BED IN LOCKED AND IN LOW POSITION. SIDE RAILS UP X2. ADVISED TO USE THE CALL LIGHT WHEN IN NEED OF ASSISTANCE. ALL NEEDS MET. PM CARE DONE EARLIER. WILL ENDORSE TO NEXT SHIFT FOR COSTA.
[2022-10-31 20:00] VITALS: BP 101/63
[2022-10-31] MEDS: ACETAMINOPHEN 325 MG TABLET PO PRN (21:27)
[2022-11-01] VITALS: BP 101/63
[2022-11-01] MEDS: MORPHINE SULFATE INJ 2 MG/ML DISP.SYRIN IV PRN ×3 (00:03→21:28)
[2022-11-01] MEDS: LACTULOSE 10 G/15 ML UDC (PYXIS) PO SCH ×5 (00:04→23:20)
[2022-11-01 04:00] VITALS: BP 122/62
[2022-11-01] MEDS: METRONIDAZOLE 500 MG TABLET PO SCH ×3 (06:16→20:12)
[2022-11-01] MEDS: LORAZEPAM INJ 2 MG/ML VIAL IV PRN (06:17)
[2022-11-01 08:00] VITALS: BP_SYST 117; BP_SYST 120; BP_DIAS 65; BP_DIAS 73
[2022-11-01 09:14] LABS: CALCIUM, SERUM 8.9 mg/dL (8.5-10.1); CREATININE 1.4 mg/dL (0.6-1.3)
[2022-11-01 09:23] LABS: ALBUMIN 2.2 g/dL (3.4-5.0); BILIRUBIN,TOTAL 5.3 mg/dL (0.2-1.0); TOTAL PROTEIN, SERUM 7.1 g/dL (6.4-8.2)
[2022-11-01] MEDS: SPIRONOLACTONE 25 MG TABLET PO SCH (10:23)
[2022-11-01] MEDS: FUROSEMIDE 40 MG TABLET PO SCH (10:24)
[2022-11-01] MEDS: LEVETIRACETAM (250 MG) 250 MG TABLET PO SCH ×2 (10:24→20:12)
[2022-11-01] MEDS: PANTOPRAZOLE 40 MG TABLET.DR PO SCH ×2 (10:25→17:23)
[2022-11-01] MEDS: THIAMINE HCL 100 MG TABLET PO SCH (10:25)
[2022-11-01] MEDS: MULTIVITAMINS,THERAGRAN 1 UDTAB TABLET PO SCH (10:25)
[2022-11-01] MEDS: LISINOPRIL (20MG) 20 MG TABLET PO SCH (10:28)
[2022-11-01 12:00] VITALS: BP 123/59
--- NOTE | 2022-11-01 12:38 | NUR ---
SS consult: SS Consult requested for Alcohol use. The pt. is a 37-year-old male pt. who was admitted to [facility] due to ALCOHOL WITHDRAWAL per EMR. Upon SS consult, the pt. is Alert & Oriented x 3 and makes poor eye contact. The pt. appears well-groomed and is very drowsy. Pt. has depressed mood & affect. Pt.s speech is low and slurred. Pt. was cooperative throughout interview and kept falling asleep between questions. The pt. denies SI/HI and denies hallucinations. SW explored pt.s living situation. Patient states he was last residing with his aunt [[id number] [facility] [address] [facility] [id number]]. SW explored pt.s mental health Hx. pt. denies any Hx. of mental illness. SW explored pt.s drug & ETOH use. Pt. states he uses alcohol daily and drinks Vodka and has been drinking for a very long time. Pt. was too drowsy and did not state if he has been to an alcohol rehab before. ZHANNA completed brief alcohol use intervention and provided pt. with addiction treatment resources and pt. accepted them. ZHANNA called and left message for pt.s' nurse, Beryl stating that the pt. has slurred speech. Plan: Per pt. he is agreeable to placement or returning home with family. ZHANNA provided pt. with the following addiction resources and pt. accepted them: ADDICTION RESOURCES For Drugs and Alcohol [facility] Referrals For Rehabilitation once sober Address:[address] [place], [place] [id number] [facility] [address] [place] [address] Detox/residential [facility] Substance Abuse Helpline ([facility]) Outpatient, residential treatment, recovery support for youth/adults [facility] www.actionfamilycounshc1.com Inc..[facility] [place] Teen programs for drug/alcohol education and support Barbara Deleon [place]. Program for adults, sliding scale provides support and education [facility] www.Affashion.org Fields; Detox/residential treatment programs; transition to sober living [facility] www.cri-help.org [place]; Outpatient and residential treatment programs; transition to sober living [facility] TEL: [phone] [facility] Ellis Stewart; Outpatient education and supportive programs for teens and adults [facility] www.oasiswomensreckern valley.org [place]; Residential treatment and work program for females only [facility] www.SportsBeat.comxPicture Production Company.Hospicelink [place]: Outpatient/residential treatment program for teens and young adults [facility] www.[facility].org Tarza Detox, inpatient, outpatient for adults and youth [facility]. [place]; Outpatient programs and referrals to community residential programs. Alcoholics Anonymous -SFV information and meeting and scheduleswww.aa-intergroup.org Oz-Fnlt-Gxpdkuv https://al-anon.org/ [place] support groups for family of alcoholics. Marijuana Anonymous www.madistrict6.org -SFV listing of meetings Narcotics Anonymous www.na.org SOBER LIVING RESOURCES [facility] www.soberhousing.net A non-profit agency that provides resources to recovery and sober living homes throughout [place], [place], [facility] Sober Living Homes: A Work in ProgressErendira [facility], [place] [facility] Homes: [facility] [place] x [phone] My New Beginning, [place] [facility] Coed Sober Living Homes: [facility]--Outpatient [facility] [address] [place] [address] (Specializes in in-depth psychotherapy for emotional distress: anxiety, depression, interpersonal conflicts, life transitions, childhood abuse) [facility] [address] [place] [address] (Assist with solving problem marital difficulties, separation & divorce, aging parents, & grief, chronic & terminal illness) [facility] [address] [place] [address] (Deal with loss & grief, anxiety, marital difficulties) Homebound/Mental Health Services [address] [facility] [address] [place] [address] (Provide in-home mental services to people who are incapable of leaving their homes) [facility] Elderly [facility] [address] [place] [address] [facility] [address] [place] [address] Mental Health Services Yudy Vega [address] [place] [address] Services: Outpatient therapy for children, teens, young adults, adults, older adults, and families; Psychiatric services, medication support Psychiatric Outpatient Services [facility] Partial Hospitalization and Intensive Outpatient Program (Managed Care and [place] Only)[address] [facility] [phone] [facility] Partial Hospitalization and Outpatient [id number] [facility] [address] [place], [place] [phone] Formerly [facility] Mental Health [place] Drn[address] [facility] [address] [place], [place] [phone] [facility] Partial Hospitalization and Outpatient [id number] [facility] [place], [phone] Crisis and Hotline Telephone Numbers 24-Hour service unless stated [place] Crisis Hotlines: [facility] Mental Health/Crisis Line........[phone] Suicide Prevention Center (24 Hours).......[phone] Suicide Prevention Crisis Center.......[phone] (24 Hours) Assaults Against Women Hotline.........272.723.5027 (24 Hours -- [facility]) Women and Children Crisis Snf...........[phone] (24 Hours) Child Abuse Hotline............157.211.9825 [facility] (24 Hours)..........[phone] Alcoholics Anonymous (24 Hours)..........[phone] Cocaine Anonymous (24 Hours)............[phone] Narcotics Anonymous (24 Hours)..........[phone] [facility] [address], [place], [place] [address]
[2022-11-01] MEDS: POTASSIUM CHLORIDE 20 MEQ TAB.PRT.SR PO SCH (12:54)
[2022-11-01 16:00] VITALS: BP 113/61
--- NOTE | 2022-11-01 19:15 | NUR ---
RN TELEHEALTH OPENING NOTE RECEIVED PT AWAKE IN BED, FAMILY AT BEDSIDE. A/O X2. AFEBRILE, ABLE TO MAKE NEEDS KNOWN. ON RA WITH NO SOB. RESPIRATION UNLABORED. NO ACUTE DISTRESS. ON TELE MONITOR READING ST HR 111. C/O PAIN 10/10 ON RUQ. PAIN MEDS NOT DUE YET AND INFORMED PT, VERBALIZED UNDERSTANDING. IV ACCESS KRISTOFER MIDLINE SL, FLUSHES WELL, PATENT AND INTACT. VELEZ CATH IN PLACE DRAINING TO GRAVITY, CLEAR MONA URINE NOTED. SAFETY MEASURES IN PLACE: BED LOCKED AND IN LOWEST POSITION, SIDE RAILS UP X3, CALL LIGHT AND TRAY TABLE WITHIN REACH. WILL CONTINUE TO MONITOR AND ASSIST.
[2022-11-01 20:00] VITALS: BP 104/52
[2022-11-02] VITALS: BP 119/62
[2022-11-02] MEDS: MORPHINE SULFATE INJ 2 MG/ML DISP.SYRIN IV PRN ×4 (02:09→23:27)
[2022-11-02 04:00] VITALS: BP 108/54
[2022-11-02] MEDS: LORAZEPAM INJ 2 MG/ML VIAL IV PRN ×3 (04:47→21:47)
[2022-11-02] MEDS: METRONIDAZOLE 500 MG TABLET PO SCH (05:02)
[2022-11-02] MEDS: LACTULOSE 10 G/15 ML UDC (PYXIS) PO SCH ×3 (05:02→17:42)
--- NOTE | 2022-11-02 07:20 | NUR ---
RN OPENING NOTE RECEIVED PT AWAKE IN BED, FAMILY AT BEDSIDE. A/O X2. AFEBRILE, ABLE TO MAKE NEEDS KNOWN. ON RA WITH NO SOB. ON TELE MONITOR READING ST HR 106. C/O PAIN 10/10 ON RUQ. PAIN MEDS NOT DUE YET AND INFORMED PT, VERBALIZED UNDERSTANDING. IV ACCESS KRISTOFER MIDLINE SL, FLUSHES WELL, PATENT AND INTACT. VELEZ CATH IN PLACE DRAINING TO GRAVITY. SAFETY MEASURES IN PLACE: BED LOCKED AND IN LOWEST POSITION, SIDE RAILS UP X3, CALL LIGHT AND TRAY TABLE WITHIN REACH. WILL CONTINUE TO MONITOR AND ASSIST.
--- NOTE | 2022-11-02 07:24 | NUR ---
ONBOARDING SPECIALIST CLOSING NOTE PT AWAKE IN BED. A/O X1-2, MOMENTS OF CONFUSION, ASKING TO GO HOME TOWARDS THE END OF SHIFT. STABLE ON RA WITH NO SOB. RESPIRATION UNLABORED. NO ACUTE DISTRESS. ON TELE MONITOR READING ST HR 124. IV ACCESS KRISTOFER MIDLINE SL, FLUSHES WELL, PATENT AND INTACT. VELEZ CATH IN PLACE DRAINING TO GRAVITY, CLEAR MONA URINE NOTED, 300 ML TOTAL OUTPUT DURING SHIFT. ALL CARE PROVIDED AND MEDS TOLERATED WELL. SAFETY MEASURES MAINTAINED: BED LOCKED AND IN LOWEST POSITION, SIDE RAILS UP X3, CALL LIGHT AND TRAY TABLE WITHIN REACH. WILL ENDORSE COSTA TO DAY SHIFT NURSE.
[2022-11-02 08:00] VITALS: BP 102/56
[2022-11-02] MEDS: FUROSEMIDE 40 MG TABLET PO SCH (08:34)
[2022-11-02] MEDS: LEVETIRACETAM (250 MG) 250 MG TABLET PO SCH ×2 (08:34→20:58)
[2022-11-02] MEDS: PANTOPRAZOLE 40 MG TABLET.DR PO SCH ×2 (08:34→17:41)
[2022-11-02] MEDS: THIAMINE HCL 100 MG TABLET PO SCH (08:34)
[2022-11-02] MEDS: LISINOPRIL (20MG) 20 MG TABLET PO SCH (08:35)
[2022-11-02] MEDS: MULTIVITAMINS,THERAGRAN 1 UDTAB TABLET PO SCH (08:36)
[2022-11-02] MEDS: POTASSIUM CHLORIDE 20 MEQ TAB.PRT.SR PO SCH ×2 (08:36→18:11)
[2022-11-02] MEDS: SPIRONOLACTONE 25 MG TABLET PO SCH (08:38)
--- NOTE | 2022-11-02 10:13 | NUR ---
PATIENT C/O GENERALIZED PAIN 10 OUT OF 10, MOANING, RESTLESS. MORPHINE 2MG/ML ADMINISTERED IV. WILL CONTINUE TO MONITOR.
[2022-11-02 12:00] VITALS: BP 93/42
--- NOTE | 2022-11-02 12:42 | NUR ---
PATIENT DEMONSTRATED EPISODE OF RESTLESSNESS, TRIED TO WALK SOMEWHERE, KEEP ASKING FOR NEXT DOSE OF MORPHINE, C/O ANXIETY. ATIVAN 2MG/ML IV ADMINISTERED, WILL CONTINUE TO MONITOR.
[2022-11-02 16:00] VITALS: BP 91/42
--- NOTE | 2022-11-02 19:30 | NUR ---
noc rn opening note received patient in bed. 1 family member at bedside. patient sleeping comfortably, easy to arouse, confused. no s/s of apparent distress on room air. no c/o pain at this time. reading st on the tele monitor with 106 bpm. call light within reach. Dardne cath draining wine-josemanuel brown colored urine. safety in place. will continue to monitor.
--- NOTE | 2022-11-02 19:49 | NUR ---
RN CLOSING NOTE PT AWAKE IN BED. A/O X1-2, MOMENTS OF CONFUSION, STABLE ON RA WITH NO SOB. RESPIRATION UNLABORED. NO ACUTE DISTRESS. ON TELE MONITOR READING ST HR 108. IV ACCESS KRISTOFER MIDLINE SL, FLUSHES WELL, PATENT AND INTACT. VELEZ CATH IN PLACE DRAINING TO GRAVITY, ALL CARE PROVIDED AND MEDS TOLERATED WELL. SAFETY MEASURES MAINTAINED: BED LOCKED AND IN LOWEST POSITION, SIDE RAILS UP X3, CALL LIGHT AND TRAY TABLE WITHIN REACH. WILL ENDORSE COSTA TO NEXT SHIFT NURSE.
[2022-11-02 20:00] VITALS: BP 95/48
--- NOTE | 2022-11-02 21:54 | NUR ---
noc rn note patient restless at this time, pulling on his clinton catheter wanting to leave the unit and per patient to quote "Get me the pharmacy" "They didn't get me my medication today to sleep" "I need the medication that's why I'm getting Crazy right now" "Morphine". Explained what morphine is for to patient and it's risk and benefits. per patient he needs something to get him to sleep. BP on the low side hence limiting Morphine. Given Ativan 2mg as ordered PRN. patient in no distress. will monitor.
--- NOTE | 2022-11-02 23:31 | NUR ---
noc rn note patient c/o 10/10 pain on his abdomen, with facial grimacing, restlessness. Given morphine 2mg as ordered PRN. will re-assess.
[2022-11-03] VITALS: BP 106/48
--- NOTE | 2022-11-03 00:31 | NUR ---
noc rn note- non-admin scheduled 0000 Lactulose held d/t Ammonia WNL. Ammonia 18. additionally patient just had 1 loose stool tonight. will monitor.
[2022-11-03 04:00] VITALS: BP 92/43
[2022-11-03] MEDS: LACTULOSE 10 G/15 ML UDC (PYXIS) PO SCH ×5 (06:00→23:48)
--- NOTE | 2022-11-03 06:30 | NUR ---
noc rn note scheduled 0600 am lactulose held. Ammonia level WNL and patient having x3 loose stool throughout the night. Patient have PRN lactulose as well.
--- NOTE | 2022-11-03 06:45 | NUR ---
noc rn closing note patient in bed, a/ox2 with confusions. frequent re-orientation done. no s/s of apparent distress on room air. pain managed with medications. all needs attended. Darden draining via gravity, tea colored urine. safety in place-- side rails up x2, bed in lowest locked position. safety in place. will endorse to morning shift rn for continuity of patient care.
--- NOTE | 2022-11-03 06:52 | NUR ---
no significant change. reading st throughout shift with 111 bpm.
--- NOTE | 2022-11-03 07:42 | NUR ---
FUR STORAGE CLERK OPENING NOTE RECEIVED PATIENT IN BED, ASLEEP, EASILY ROUSES TO NAME AND TOUCH. ALERT AND ORIENTED. AFEBRILE, ABLE TO MAKE NEEDS KNOWN. ROOM AIR, TOLERATING WELL, NOT IN DISTRESS, RESPIRATION UNLABORED, ST HR 109 ON MONITOR. TIFFANIE PAIN/DISCOMFORT. IV ACCESS KRISTOFER MIDLINE SL, FLUSHES WELL, SITE CLEAR. FOELY CATH IN PLACE DRAINING TO GRAVITY WITH CLEAR MONA URINE. SAFETY MEASURES IN PLACE. KEPT BED IN LOCKED AND IN LOW POSITION. SIDE RAILS UP X2. ADVISED TO USE THE CALL LIGHT WHEN IN NEED OF ASSISTANCE. PLAN OF CARE CONTINUE.
[2022-11-03 08:00] VITALS: BP 116/58
[2022-11-03] MEDS: MORPHINE SULFATE INJ 2 MG/ML DISP.SYRIN IV PRN ×4 (08:42→22:07)
[2022-11-03] MEDS: THIAMINE HCL 100 MG TABLET PO SCH (08:42)
[2022-11-03] MEDS: FUROSEMIDE 40 MG TABLET PO SCH (08:43)
[2022-11-03] MEDS: SPIRONOLACTONE 25 MG TABLET PO SCH (08:43)
[2022-11-03] MEDS: MULTIVITAMINS,THERAGRAN 1 UDTAB TABLET PO SCH (08:43)
[2022-11-03] MEDS: POTASSIUM CHLORIDE 20 MEQ TAB.PRT.SR PO SCH ×2 (08:43→16:04)
[2022-11-03] MEDS: LEVETIRACETAM (250 MG) 250 MG TABLET PO SCH ×2 (08:43→20:05)
[2022-11-03] MEDS: PANTOPRAZOLE 40 MG TABLET.DR PO SCH ×2 (08:43→16:04)
[2022-11-03] MEDS: Magnesium 1GM/D5W 100ML PREMIX 100 ML IV SCH ×4 (10:01→14:02)
[2022-11-03] MEDS: LORAZEPAM INJ 2 MG/ML VIAL IV PRN ×2 (10:41→22:31)
--- NOTE | 2022-11-03 10:58 | NUR ---
INFORMED DR. PINTO PATIENT NO BLOOD WORKS DONE SINCE 10/31, WITH ORDER TO DO BMP AND CBC TODAY 11/03, NOTED AND CARRIED OUT. PLAN OF CARE CONTINUE.
--- NOTE | 2022-11-03 11:00 | NUR ---
REMOVED F/C PER MD'S ORDER, PATIENT TOLERATED.
[2022-11-03 11:08] LABS: BASOPHILS # (AUTO) 0.3 K/uL (0.0-0.2); BASOPHILS % (AUTO) 2.4 % (0.0-2.0); EOSINOPHILS % (AUTO) 3.9 % (0.0-6.0); HEMATOCRIT 25 % (39-51); HEMOGLOBIN 7.9 g/dL (13.5-17.5); LYMPHOCYTES # (AUTO) 2.1 K/uL (0.8-4.8); LYMPHOCYTES % (AUTO) 16.6 % (20.0-44.0); MEAN CORPUSCULAR HGB CONC 32 g/dl (31.0-36.0); MEAN CORPUSCULAR VOLUME 93 fL (80-96); MONOCYTES # (AUTO) 1.1 K/uL (0.1-1.30); MONOCYTES % (AUTO) 8.5 % (2.0-12.0); NEUTROPHILS # (AUTO) 8.8 K/uL (1.8-8.9); NEUTROPHILS % (AUTO) 68.6 % (43.0-81.0); PLATELET COUNT (AUTO) 507 K/uL (150-450); RED BLOOD CELL COUNT(AUTO) 2.68 MIL/uL (4.5-6.0); WHITE BLOOD COUNT (AUTO) 12.9 K/uL (4.3-11.0)
[2022-11-03 11:11] LABS: CALCIUM, SERUM 8.5 mg/dL (8.5-10.1); CREATININE 2.7 mg/dL (0.6-1.3); POTASSIUM 3.4 mmol/L (3.5-5.1)
--- NOTE | 2022-11-03 18:26 | NUR ---
MS CLOSING RN NOTE RECEIVED PATIENT IN BED, ASLEEP, EASILY ROUSES TO NAME AND TOUCH. ALERT AND ORIENTED. AFEBRILE, ABLE TO MAKE NEEDS KNOWN. ROOM AIR, TOLERATING WELL, NOT IN DISTRESS, RESPIRATION UNLABORED, TIFFANIE PAIN/DISCOMFORT. IV ACCESS KRISTOFER MIDLINE SL, FLUSHES WELL, SITE CLEAR. PATIENT ABLE TO URINATE USING THE BEDSIDE COMMODE. SAFETY MEASURES IN PLACE. KEPT BED IN LOCKED AND IN LOW POSITION. SIDE RAILS UP X2. ADVISED TO USE THE CALL LIGHT WHEN IN NEED OF ASSISTANCE. WILL ENDORSE TO NIGHT NURSE FOR COSTA.
[2022-11-03 21:27] VITALS: BP 119/57
--- NOTE | 2022-11-03 22:09 | NUR ---
PAIN Patient in bed, c/o Pelvis/abdomen pain 8/10, denies N/V. Given Morphine, will reassess pain level.
--- NOTE | 2022-11-03 22:35 | NUR ---
AGITATION Patient screaming loud, restless, confused. Given Ativan, fall precaution maintained.
--- NOTE | 2022-11-03 23:45 | NUR ---
UNABLE TO VOID Patient sitting up in bed, difficulty urinating. Feels bladder discomfort. Bladder scan showed 358ml. Straight catheter, obtained 400ml urine color dark pool.
--- NOTE | 2022-11-03 23:51 | NUR ---
IMPULSIVE Patient impulsive, getting out from bed, confused. Bed alarm on and audible, fall precaution maintained.
[2022-11-04 04:34] LABS: BAND % (MANUAL) 6 % (0.0-5.0); BASOPHILS % (MANUAL) 0 % (0.0-2.0); EOSINOPHILS % (MANUAL) 2 % (0-4); LYMPHOCYTES % (MANUAL) 18 % (16-48); MONOCYTES % (MANUAL) 9 % (0-11.0); NEUTROPHILS % (MANUAL) 65 (42-76)
--- NOTE | 2022-11-04 05:28 | NUR ---
END OF SHIFT REPORT Patient in bed, restless at times with confusion. Right upper arm Midline intact. Oxygen sat low 90's in RA, denies SOB. Ambulatory, standby assist. Had BM during the shift. Episode of urinary retention, straight catheterization obtained 400ml urine at 2345. Back pain improved with Morphine, no c/o N/V. Tolerating Regular diet. Behavior agitation slowly calm down with Ativan. Fall precaution maintained. Pending DC, awaiting placement. Will endorse to oncoming RN.
[2022-11-04] MEDS: LACTULOSE 10 G/15 ML UDC (PYXIS) PO SCH ×3 (06:13→17:10)
--- NOTE | 2022-11-04 07:37 | NUR ---
RN OPENING NOTE PATIENT AWAKE IN BED RESTING, A/O X 1, CONFUSED. NO S/S OF PAIN NOTED AT THIS TIME. ON ROOM AIR, BREATHING EVEN UNLABORED, NO DISTRESS OR SHORTNESS OF BREATH NOTED AT THIS TIME. IV ACCESS KRISTOFER MIDLINE, INTACT PATENT AND FLUSHING WELL. FALL AND SAFETY MEASURES IN PLACE, BED ALARM ON, BED IN LOW AND LOCK POSITION, CALL LIGHT AND TABLE WITHIN EASY REACH, SIDE RAILS UP X2. WILL CONTINUE TO MONITOR.
[2022-11-04 08:00] VITALS: BP 118/63
[2022-11-04] MEDS: MULTIVITAMINS,THERAGRAN 1 UDTAB TABLET PO SCH (08:06)
[2022-11-04] MEDS: POTASSIUM CHLORIDE 20 MEQ TAB.PRT.SR PO SCH ×2 (08:06→17:10)
[2022-11-04] MEDS: THIAMINE HCL 100 MG TABLET PO SCH (08:06)
[2022-11-04] MEDS: SPIRONOLACTONE 25 MG TABLET PO SCH (08:06)
[2022-11-04] MEDS: PANTOPRAZOLE 40 MG TABLET.DR PO SCH ×2 (08:07→17:10)
[2022-11-04] MEDS: LEVETIRACETAM (250 MG) 250 MG TABLET PO SCH ×2 (08:07→21:05)
[2022-11-04] MEDS ORDERED: IV NS 0.9% 1,000 ML IV ONE (10:00)
[2022-11-04] MEDS: LORAZEPAM INJ 2 MG/ML VIAL IV PRN ×2 (12:13→21:30)
[2022-11-04 13:00] VITALS: BP 118/63
[2022-11-04] MEDS ORDERED: QUETIAPINE FUMARATE 25 MG TABLET PO PRN (13:00)
[2022-11-04 16:00] VITALS: BP 111/61
--- NOTE | 2022-11-04 17:28 | NUR ---
RN NOTE PER DOCTOR ZULEIKA IQBAL OK TO D/C ORDER FOR BLADDER SCAN Q8HRS, PATIENT IS GOING TO THE BATHROOM, NO COMPLAIN OF PAIN OR DISCOMFORT, OUTPUT 400ML. WILL CONTINUE TO MONITOR.
[2022-11-04] MEDS: MORPHINE SULFATE INJ 2 MG/ML DISP.SYRIN IV PRN (18:38)
--- NOTE | 2022-11-04 18:45 | NUR ---
RN CLOSING NOTE PATIENT AWAKE IN BED RESTING, A/O X 1, CONFUSED, KEEP GETTING OUT OF BED. PAIN LEVEL 9/10, BILATERAL KNEE, NOTED AT THIS TIME, PAIN MEDICATION GIVEN. ON ROOM AIR, BREATHING EVEN UNLABORED, NO DISTRESS OR SHORTNESS OF BREATH NOTED AT THIS TIME. IV ACCESS KRISTOFER MIDLINE, INTACT PATENT AND FLUSHING WELL. SCHEDULE MEDICATIONS ADMINISTERED. FALL AND SAFETY MEASURES IN PLACE, BED ALARM ON, BED IN LOW AND LOCK POSITION, CALL LIGHT AND TABLE WITHIN EASY REACH, SIDE RAILS UP X2. ALL NEEDS ATTENDED AND ANTICIPATED. WILL ENDORSE TO SALES PROJECT MANAGER NURSE.
[2022-11-04 20:00] VITALS: BP 131/72
[2022-11-04] MEDS ORDERED: LACTULOSE 10 G/15 ML UDC (PYXIS) PO SCH (20:00)
--- NOTE | 2022-11-04 21:45 | NUR ---
MS RN PT COMBATIVE REFUSING TO GET BACK INTO BED. ARGUING WITH STAFF. PT UNSTEADY WITH AMBULATION. UNABLE TO REORIENT PT TO SITUATION. BSWR PLACED AND ATIVAN GIVEN NEEDED.
--- NOTE | 2022-11-05 | NUR ---
MS RN PER BLADDER SCAN 55 ML URINE
[2022-11-05] MEDS: LACTULOSE 10 G/15 ML UDC (PYXIS) PO SCH ×4 (00:28→18:02)
[2022-11-05] MEDS: MORPHINE SULFATE INJ 2 MG/ML DISP.SYRIN IV PRN (01:19)
[2022-11-05 04:00] VITALS: BP 131/72
[2022-11-05] MEDS: LORAZEPAM INJ 2 MG/ML VIAL IV PRN ×2 (04:54→22:19)
--- NOTE | 2022-11-05 05:33 | NUR ---
MS RN PT DANGLED LEGS OVER BED AND PROCEEDED TO URINATE AND DEFECATE ON FLOOR.
[2022-11-05 06:12] LABS: BASOPHILS # (AUTO) 0.1 K/uL (0.0-0.2); BASOPHILS % (AUTO) 1.4 % (0.0-2.0); EOSINOPHILS % (AUTO) 3.4 % (0.0-6.0); HEMATOCRIT 25 % (39-51); HEMOGLOBIN 8.2 g/dL (13.5-17.5); LYMPHOCYTES % (AUTO) 9.9 % (20.0-44.0); MEAN CORPUSCULAR HGB CONC 32 g/dl (31.0-36.0); MEAN CORPUSCULAR VOLUME 92 fL (80-96); MONOCYTES # (AUTO) 0.9 K/uL (0.1-1.30); MONOCYTES % (AUTO) 9.2 % (2.0-12.0); NEUTROPHILS # (AUTO) 7.6 K/uL (1.8-8.9); NEUTROPHILS % (AUTO) 76.1 % (43.0-81.0); PLATELET COUNT (AUTO) 394 K/uL (150-450); RED BLOOD CELL COUNT(AUTO) 2.73 MIL/uL (4.5-6.0)
[2022-11-05 06:23] LABS: ALBUMIN 2.5 g/dL (3.4-5.0); BILIRUBIN,TOTAL 4.2 mg/dL (0.2-1.0); CALCIUM, SERUM 9.5 mg/dL (8.5-10.1); CREATININE 1.4 mg/dL (0.6-1.3); MAGNESIUM 1.3 mg/dL (1.8-2.4); PHOSPHORUS 3.3 mg/dL (2.5-4.9); POTASSIUM 4.6 mmol/L (3.5-5.1); TOTAL PROTEIN, SERUM 7.8 g/dL (6.4-8.2)
--- NOTE | 2022-11-05 06:40 | NUR ---
MS RN MULTIPLE DOSES OF ATIVAN GIVEN TO PT HOWEVER PT CONTINUED WITH TREMORS AND INCREASED AGITATION WELL HALLUCINATIONS.
--- NOTE | 2022-11-05 07:15 | NUR ---
RN note Patient is resting in bed. GCS [id number]. Bilateral pupils 3mm FÁTIMA. Circulation is good with restraint use. Right UA midline is dry and intact. Assisted patient to use the commode, bilateral LL weakness noted. Patient urinated and passed stool once. Will keep monitoring of ammonia and GCS. Call key is placed within reach. Bed is locked and placed in the lowest position.
[2022-11-05 08:00] VITALS: BP 130/69
--- NOTE | 2022-11-05 08:00 | NUR ---
BS done, 33mL residual urine.
[2022-11-05] MEDS: LEVETIRACETAM (250 MG) 250 MG TABLET PO SCH ×2 (09:23→21:06)
[2022-11-05] MEDS: PANTOPRAZOLE 40 MG TABLET.DR PO SCH ×2 (09:23→16:23)
[2022-11-05] MEDS: SPIRONOLACTONE 25 MG TABLET PO SCH (09:23)
[2022-11-05] MEDS: POTASSIUM CHLORIDE 20 MEQ TAB.PRT.SR PO SCH ×2 (09:23→16:23)
[2022-11-05] MEDS: THIAMINE HCL 100 MG TABLET PO SCH (09:23)
[2022-11-05] MEDS: MULTIVITAMINS,THERAGRAN 1 UDTAB TABLET PO SCH (09:23)
[2022-11-05] MEDS: QUETIAPINE FUMARATE 25 MG TABLET PO SCH ×2 (10:30→16:23)
[2022-11-05] MEDS: Magnesium 1GM/D5W 100ML PREMIX 100 ML IV SCH ×4 (12:12→15:19)
[2022-11-05] MEDS: IV NS 0.9% 250 ML IV PRN (12:19)
[2022-11-05 16:00] VITALS: BP 106/45
[2022-11-05] MEDS: ENSURE ENLIVE CHOC 237 ML CAN PO SCH (16:23)
--- NOTE | 2022-11-05 16:48 | NUR ---
Bladder scan was done, RU 200mL.
[2022-11-05 20:00] VITALS: BP 118/63
--- NOTE | 2022-11-05 20:00 | NUR ---
PT. FOUND WITH LEGS BETWEEN SIDE RAILS, RESTRAINRS INTACT, INCONTINENT OF LARGE AMOUNT OF URINE, PT. IS CONFUSED AND NOT FOLLOWING ANY COMMANDS, CLEANED UP AND PULLED UP IN BED, INSTRUCTED TO CALL FOR HELP
--- NOTE | 2022-11-05 21:30 | NUR ---
PT. FOUND AGAIN AT BOTTOM OF BED, VERY CONFUSED WITH SPEECH UNCLEAR, ENCOURAGED PT. TO RELAX AND SLEEP, INCONTINENT OF URINE AGAIN IN DIAPER AND CHANGED,
--- NOTE | 2022-11-05 22:00 | NUR ---
PT. CONTINUES TO SLIDE DOWN TO BOTTOM OF BED, CONFUSED AND TRYING TO GET OUT OF BED ATIVAN GIVEN.
--- NOTE | 2022-11-05 23:00 | NUR ---
PT. REMAINS CONFUSED AND TRYING TO GET OUT OF BED, SLEPT FOR 30 MINS AFTER ATIVAN GIVEN.
[2022-11-06] MEDS: LACTULOSE 10 G/15 ML UDC (PYXIS) PO SCH ×5 (05:49→23:18)
--- NOTE | 2022-11-06 07:15 | NUR ---
EDITOR MAP OPENING NOTES Received pt awake in bed AOX1 with episodes of confusion. Pt is on NC 2L and tolerating it well. No signs of pain or discomfort at this time. IV access on KRISTOFER midline patent and intact. HOB elevated to 30-45 degrees. Siderails up at all times x2. Call light within reach. Will continue to monitor.
--- NOTE | 2022-11-06 07:20 | NUR ---
SHIFT REPORT REPORT GIVEN TO SIMONA CHART REVIEWED YES SBAR GIVEN YES
[2022-11-06 08:00] VITALS: BP 127/68
--- NOTE | 2022-11-06 08:30 | NUR ---
RN PACU NOTES Bladder scan done as ordered and pt had 81ml PVR.
[2022-11-06] MEDS: POTASSIUM CHLORIDE 20 MEQ TAB.PRT.SR PO SCH ×2 (08:38→17:13)
[2022-11-06] MEDS: QUETIAPINE FUMARATE 25 MG TABLET PO SCH ×2 (08:38→17:13)
[2022-11-06] MEDS: SPIRONOLACTONE 25 MG TABLET PO SCH (08:38)
[2022-11-06] MEDS: PANTOPRAZOLE 40 MG TABLET.DR PO SCH ×2 (08:39→17:22)
[2022-11-06] MEDS: MULTIVITAMINS,THERAGRAN 1 UDTAB TABLET PO SCH (08:39)
[2022-11-06] MEDS: THIAMINE HCL 100 MG TABLET PO SCH (08:39)
[2022-11-06] MEDS: LEVETIRACETAM (250 MG) 250 MG TABLET PO SCH ×2 (08:39→20:47)
[2022-11-06] MEDS: ENSURE ENLIVE CHOC 237 ML CAN PO SCH ×3 (08:49→17:20)
[2022-11-06 11:50] LABS: BASOPHILS % (AUTO) 0.2 % (0.0-2.0); EOSINOPHILS % (AUTO) 3.2 % (0.0-6.0); HEMATOCRIT 25 % (39-51); LYMPHOCYTES # (AUTO) 1.1 K/uL (0.8-4.8); LYMPHOCYTES % (AUTO) 18.4 % (20.0-44.0); MEAN CORPUSCULAR HGB CONC 32 g/dl (31.0-36.0); MEAN CORPUSCULAR VOLUME 95 fL (80-96); MONOCYTES # (AUTO) 0.9 K/uL (0.1-1.30); MONOCYTES % (AUTO) 14.2 % (2.0-12.0); NEUTROPHILS # (AUTO) 3.9 K/uL (1.8-8.9); PLATELET COUNT (AUTO) 342 K/uL (150-450); RED BLOOD CELL COUNT(AUTO) 2.68 MIL/uL (4.5-6.0); WHITE BLOOD COUNT (AUTO) 6.2 K/uL (4.3-11.0)
--- NOTE | 2022-11-06 11:52 | NUR ---
DEFENSIVE FIRE CONTROL SYSTEMS OPERATOR NOTES Made Wilfrid Fine, TEMPERATURE CONTROL INSPECTOR aware of pts eyes being yellow. Seen and evaluated by Wilfrid Fine at bedside with new order for STAT CAT scan without contrast of the head for AMS and STAT ammonia level. noted and carried out.
[2022-11-06 11:55] LABS: CALCIUM, SERUM 9.5 mg/dL (8.5-10.1); CREATININE 1.3 mg/dL (0.6-1.3); MAGNESIUM 1.5 mg/dL (1.8-2.4); PHOSPHORUS 4.4 mg/dL (2.5-4.9); POTASSIUM 4.5 mmol/L (3.5-5.1)
[2022-11-06 16:00] VITALS: BP 139/74
--- NOTE | 2022-11-06 17:00 | NUR ---
HAND NAILER NOTS Bladder scan done as ordered and PVR was 71cc.
--- NOTE | 2022-11-06 18:23 | NUR ---
PAYROLL AND BENEFITS SPECIALIST CLOSING NOTES All due meds and tx given as ordered. Pt tolerated everything well. All needs attended to. Pt is currently on 2L NC and tolerating it well. IV access on KRISTOFER Midline patent and intact. HOB elevated to 30-45 degrees. Siderails up at all times x2. Call light within reach. Will endorse to oncoming nurse.
[2022-11-06 20:00] VITALS: BP 137/61
[2022-11-07] MEDS: LACTULOSE 10 G/15 ML UDC (PYXIS) PO SCH ×3 (06:20→17:25)
--- NOTE | 2022-11-07 07:10 | NUR ---
SALES INSPECTOR OPENING NOTES Received pt awake in bed AOX1 with episodes of confusion. Pt is on NC 2L and tolerating it well. No signs of pain or discomfort at this time. HOB elevated to 30-45 degrees. Siderails up at all times x2. Call light within reach. Will continue to monitor.
--- NOTE | 2022-11-07 07:51 | NUR ---
RN CLOSING NOTE PATIENT IS VERY CONFUSED AND RESTLESS. YELLING. A/OX1. BILATERAL SOFT WRIST RESTRAINTS ON. RECEIVED ON 2L, CONTINUOUSLY REMOVES OXYGEN, EDUCATION GIVEN, SATTING WELL ON ROOM AIR. MULTIPLE INCONTINENT EPISODES OF BOWEL AND BLADDER. IV REMOVED MULTIPLE TIMES.
[2022-11-07 08:00] VITALS: BP 114/85
[2022-11-07] MEDS: LEVETIRACETAM (250 MG) 250 MG TABLET PO SCH ×2 (08:23→21:55)
[2022-11-07] MEDS: SPIRONOLACTONE 25 MG TABLET PO SCH (08:23)
[2022-11-07] MEDS: QUETIAPINE FUMARATE 25 MG TABLET PO SCH (08:23)
[2022-11-07] MEDS: MULTIVITAMINS,THERAGRAN 1 UDTAB TABLET PO SCH (08:23)
[2022-11-07] MEDS: PANTOPRAZOLE 40 MG TABLET.DR PO SCH ×2 (08:24→17:25)
[2022-11-07] MEDS: THIAMINE HCL 100 MG TABLET PO SCH (08:24)
[2022-11-07] MEDS: POTASSIUM CHLORIDE 20 MEQ TAB.PRT.SR PO SCH ×2 (08:24→17:25)
[2022-11-07] MEDS: ENSURE ENLIVE CHOC 237 ML CAN PO SCH ×3 (08:24→17:36)
--- NOTE | 2022-11-07 09:00 | NUR ---
TRANSFER DRIVER NOTES Bladder scan done and was 71ml.
[2022-11-07 12:01] LABS: BASOPHILS # (AUTO) 0.1 K/uL (0.0-0.2); BASOPHILS % (AUTO) 0.7 % (0.0-2.0); EOSINOPHILS % (AUTO) 2.1 % (0.0-6.0); HEMATOCRIT 30 % (39-51); HEMOGLOBIN 9.3 g/dL (13.5-17.5); LYMPHOCYTES # (AUTO) 0.9 K/uL (0.8-4.8); LYMPHOCYTES % (AUTO) 11.7 % (20.0-44.0); MEAN CORPUSCULAR HGB CONC 32 g/dl (31.0-36.0); MEAN CORPUSCULAR VOLUME 96 fL (80-96); MONOCYTES # (AUTO) 0.8 K/uL (0.1-1.30); MONOCYTES % (AUTO) 10.1 % (2.0-12.0); NEUTROPHILS # (AUTO) 5.7 K/uL (1.8-8.9); NEUTROPHILS % (AUTO) 75.4 % (43.0-81.0); PLATELET COUNT (AUTO) 347 K/uL (150-450); RED BLOOD CELL COUNT(AUTO) 3.08 MIL/uL (4.5-6.0); WHITE BLOOD COUNT (AUTO) 7.6 K/uL (4.3-11.0)
[2022-11-07 12:14] LABS: CALCIUM, SERUM 9.8 mg/dL (8.5-10.1); CREATININE 1.2 mg/dL (0.6-1.3); MAGNESIUM 1.4 mg/dL (1.8-2.4); PHOSPHORUS 5.3 mg/dL (2.5-4.9); POTASSIUM 4.8 mmol/L (3.5-5.1)
--- NOTE | 2022-11-07 12:24 | NUR ---
NETWORK SOLUTIONS ARCHITECT NOTES Lab called o relay a critical lab value of carbon dioxide at 9. Giovanni Espinoza notified. Awaiting response.
[2022-11-07] MEDS: LORAZEPAM INJ 2 MG/ML VIAL IV PRN (12:32)
--- NOTE | 2022-11-07 12:38 | NUR ---
PLASTIC INSTALLER NOTES Ativan 2mg given d/t pt having withdrawals being agitated.
--- NOTE | 2022-11-07 14:59 | NUR ---
CONSTRUCTION SKILLS TEACHER NOTES Seen and evaluated by AVINASH Espinoza with new orders to d/c ativan and start pt on zyprexa QHS.
[2022-11-07] MEDS ORDERED: OLANZAPINE 10 MG VIAL IM ONE (15:00)
[2022-11-07 16:00] VITALS: BP 119/67
[2022-11-07] MEDS: RIFAXIMIN 550 MG TABLET PO SCH (17:25)
--- NOTE | 2022-11-07 18:24 | NUR ---
CLEANER FURNITURE NOTES All due meds and tx given as ordered. Pt tolerated everything well. All needs attended to.
--- NOTE | 2022-11-07 19:30 | NUR ---
MS RN OPENING NOTES - RECEIVED PATIENT AWAKE IN BED, FAMILY PRESENT IN ROOM. A/O X1, CONFUSED. BREATHING EVEN AND NON-LABORED, ON O2 AT 2LPM VIA NASAL CANULA. NOT IN APPARENT DISTRESS. DENIES PAIN AT THIS TIME. HAS RIGHT ANTECUBITAL IV ACCESS #20G AND SALINE LOCKED. NO S/S OF INFILTRATION NOTED. BILATERAL SOFT WRIST RESTRAINS ON. SAFETY PRECAUTIONS IN PLACE: BED LOCKED AND IN LOW POSITION, SIDE RAILS UP X3, CALL LIGHT WITHIN REACH. WILL CONTINUE PLAN OF CARE.
[2022-11-07 20:00] VITALS: BP 121/80
[2022-11-07 20:36] VITALS: BP 121/80
[2022-11-07] MEDS: OLANZAPINE ZYDIS 5 MG TAB.RAPDIS PO SCH (21:54)
[2022-11-08] VITALS: BP 122/85
[2022-11-08] MEDS: LACTULOSE 10 G/15 ML UDC (PYXIS) PO SCH ×5 (00:45→23:46)
[2022-11-08 04:00] VITALS: BP 132/78
--- NOTE | 2022-11-08 05:00 | NUR ---
NOTIFIED HOSPITALIST JORGE FRIEND THAT PATIENT'S HR IS 131 BPM D/T WITHDRAWAL. ORDERED ATIVAN 1MG IV NOW. NOTED AND CARRIED OUT.
[2022-11-08] MEDS ORDERED: LORAZEPAM INJ 2 MG/ML VIAL IV STA (05:23)
--- NOTE | 2022-11-08 07:15 | NUR ---
MS RN CLOSING NOTES - PATIENT RESTING IN BED. ABLE TO VERBALIZE NEEDS. STILL TRYING TO GET OUT OF BED, RESTRAINTS ON. CHECKED SKIN AND CIRCULATION ORDERED. TACHYCARDIA AND TREMORS NOTED. NO C/O PAIN AT THIS TIME. RIGHT ANTECUBITAL IV ACCESS INTACT, PATENT AND FLUSHING. ALL DUE MEDS GIVEN AND NEEDS ATTENDED. SAFETY PRECAUTIONS MAINTAINED. WILL ENDORSE TO NEXT SHIFT FOR COSTA.
[2022-11-08] MEDS: ENSURE ENLIVE CHOC 237 ML CAN PO SCH ×3 (07:50→16:19)
[2022-11-08 07:52] LABS: BASOPHILS # (AUTO) 0.1 K/uL (0.0-0.2); BASOPHILS % (AUTO) 0.5 % (0.0-2.0); EOSINOPHILS % (AUTO) 0.2 % (0.0-6.0); HEMATOCRIT 29 % (39-51); HEMOGLOBIN 9.2 g/dL (13.5-17.5); LYMPHOCYTES # (AUTO) 1.4 K/uL (0.8-4.8); LYMPHOCYTES % (AUTO) 13.5 % (20.0-44.0); MEAN CORPUSCULAR HGB CONC 32 g/dl (31.0-36.0); MEAN CORPUSCULAR VOLUME 94 fL (80-96); MONOCYTES % (AUTO) 9.3 % (2.0-12.0); NEUTROPHILS # (AUTO) 8.1 K/uL (1.8-8.9); NEUTROPHILS % (AUTO) 76.5 % (43.0-81.0); PLATELET COUNT (AUTO) 439 K/uL (150-450); RED BLOOD CELL COUNT(AUTO) 3.11 MIL/uL (4.5-6.0); WHITE BLOOD COUNT (AUTO) 10.6 K/uL (4.3-11.0)
[2022-11-08] MEDS: LEVETIRACETAM (250 MG) 250 MG TABLET PO SCH ×2 (08:36→20:11)
[2022-11-08] MEDS: PANTOPRAZOLE 40 MG TABLET.DR PO SCH ×2 (08:36→16:19)
[2022-11-08] MEDS: POTASSIUM CHLORIDE 20 MEQ TAB.PRT.SR PO SCH (08:36)
[2022-11-08] MEDS: MULTIVITAMINS,THERAGRAN 1 UDTAB TABLET PO SCH (08:37)
[2022-11-08] MEDS: RIFAXIMIN 550 MG TABLET PO SCH ×2 (08:37→16:20)
[2022-11-08] MEDS: SPIRONOLACTONE 25 MG TABLET PO SCH (08:37)
[2022-11-08] MEDS: THIAMINE HCL 100 MG TABLET PO SCH (08:38)
[2022-11-08 08:43] LABS: ALBUMIN 2.8 g/dL (3.4-5.0); BILIRUBIN,DIRECT 2.8 mg/dL (0.0-0.2); BILIRUBIN,TOTAL 3.1 mg/dL (0.2-1.0); CALCIUM, SERUM 10.1 mg/dL (8.5-10.1); CREATININE 1.5 mg/dL (0.6-1.3); MAGNESIUM 1.4 mg/dL (1.8-2.4); PHOSPHORUS 5.7 mg/dL (2.5-4.9); POTASSIUM 5.4 mmol/L (3.5-5.1)
[2022-11-08] MEDS ORDERED: IV NS 0.9% 1,000 ML IV PRN (10:30)
[2022-11-08 10:55] LABS: BASOPHILS # (AUTO) 0.1 K/uL (0.0-0.2); BASOPHILS % (AUTO) 0.6 % (0.0-2.0); EOSINOPHILS % (AUTO) 0.3 % (0.0-6.0); HEMATOCRIT 29 % (39-51); HEMOGLOBIN 9.4 g/dL (13.5-17.5); LYMPHOCYTES # (AUTO) 1.5 K/uL (0.8-4.8); LYMPHOCYTES % (AUTO) 16.5 % (20.0-44.0); MEAN CORPUSCULAR HGB CONC 32 g/dl (31.0-36.0); MEAN CORPUSCULAR VOLUME 93 fL (80-96); MONOCYTES % (AUTO) 10.6 % (2.0-12.0); NEUTROPHILS # (AUTO) 6.5 K/uL (1.8-8.9); PLATELET COUNT (AUTO) 436 K/uL (150-450); RED BLOOD CELL COUNT(AUTO) 3.18 MIL/uL (4.5-6.0); WHITE BLOOD COUNT (AUTO) 9.1 K/uL (4.3-11.0)
[2022-11-08] MEDS ORDERED: MAGNESIUM OXIDE 400 MG TABLET PO ONE (11:00)
[2022-11-08 11:10] LABS: CREATININE 1.6 mg/dL (0.6-1.3); MAGNESIUM 1.5 mg/dL (1.8-2.4); PHOSPHORUS 5.8 mg/dL (2.5-4.9)
[2022-11-08] MEDS ORDERED: SODIUM BICARBONATE SYR 50 MEQ/50 ML DISP.SYRIN IV ONE (12:30)
[2022-11-08] MEDS ORDERED: INSULIN REGULAR, HUMAN 100 UNIT/ML 3 ML VIAL IV ONE (12:30)
[2022-11-08] MEDS ORDERED: DEXTROSE 50%-WATER 50 ML DISP.SYRIN IVP ONE (12:30)
[2022-11-08] MEDS ORDERED: SODIUM POLYSTYRENE SULFONATE 15 G/60 ML BOTTLE PO ONE (12:30)
[2022-11-08 16:00] VITALS: BP 135/79
--- NOTE | 2022-11-08 16:31 | NUR ---
HOD LACTULOSE D/T AMMONIA LEVEL IS <10
--- NOTE | 2022-11-08 19:30 | NUR ---
STUMPER FELLER OPENING NOTES RECEIVED PATIENT AWAKE IN BED. MOTHER AT BED SIDE. NO PAIN NOTED. NO SOB NOTED. NO DISTRESS NOTED. PATIENT ON TELE MONITOR . NO ACUTE DISTRESS NOTED. RIGHT AC IV SITE G # 20 INTACT AND PATENT SL. PATIENT IS A/O TIMES 2 WITH CONFUSION. ABLE TO MAKE NEEDS KNOWN. ALL SAFETY MEASURES IN PLACE. ON BILATERAL RESTRAIN. SKIN AND CIRCULATION CHECKS DONE. HEAD OF THE BED ELEVATED FOR ASPIRATION PRECAUTIONS.BED LOCKED IN THE LOWEST POSITION. CALL LIGHT AND TABLE IN EASY REACH. SIDE RAILS UP TIMES 2. WILL CONTINUE TO MONITOR CLOSELY.
[2022-11-08] MEDS: LEVALBUTEROL HCL NEB 1.25 MG/0.5 ML VIAL.NEB NEB PRN (20:28)
[2022-11-08] MEDS: OLANZAPINE ZYDIS 5 MG TAB.RAPDIS PO SCH (21:17)
--- NOTE | 2022-11-08 22:00 | NUR ---
RN NOTE TEMP NOTED 100.6 DEG AT 1999, TYLENOL ADMINISTERED ORDERED BY MELISA RIVER AT 1839, CONTINUOUS COOLING MEASURES PROVIDED. TEMP RECHECKED AND REVEALED 99.4 DEGREES Addendum: 11/10/22 at 0243 by AME VIDES RN WRONG ENTRY, CORRECT DATE/TIME 11/10/2022 [id number]
[2022-11-09] VITALS (79 sets, daily range): BP systolic 37–156; BP diastolic 15–92
[2022-11-09] MEDS: ACETAMINOPHEN 325 MG TABLET PO PRN ×2 (00:26→18:39)
[2022-11-09] MEDS: LACTULOSE 10 G/15 ML UDC (PYXIS) PO SCH ×4 (05:43→23:25)
--- NOTE | 2022-11-09 06:34 | NUR ---
ELECTRONIC TRAIN CONTROL TECHNICIAN CLOSING NOTES PATIENT AWAKE IN BED. NO PAIN NOTED. NO SOB NOTED. NO DISTRESS NOTED. PATIENT ON TELE MONITOR READING ST , SINCE PATIENT IS RESTLESS AND MOVES CONSTANTLY AND SLIDES DOWN THE BED. RIGHT AC IV SITE G # 20 INTACT AND PATENT RUNNING NS AT 75 ML/HR. PATIENT IS A/O TIMES 2 WITH CONFUSION. ABLE TO MAKE NEEDS KNOWN.ALL DUE MEDS GIVEN ORDERED. ALL SAFETY MEASURES IN PLACE. ON BILATERAL RESTRAIN. SKIN AND CIRCULATION CHECKS DONE. HEAD OF THE BED ELEVATED FOR ASPIRATION PRECAUTIONS.BED LOCKED IN THE LOWEST POSITION. CALL LIGHT AND TABLE IN EASY REACH. SIDE RAILS UP TIMES 2. WILL ENDORSE FOR COSTA.
[2022-11-09 07:25] LABS: BASOPHILS # (AUTO) 0.1 K/uL (0.0-0.2); BASOPHILS % (AUTO) 0.5 % (0.0-2.0); EOSINOPHILS % (AUTO) 0.1 % (0.0-6.0); HEMATOCRIT 32 % (39-51); HEMOGLOBIN 10.1 g/dL (13.5-17.5); LYMPHOCYTES # (AUTO) 2.2 K/uL (0.8-4.8); LYMPHOCYTES % (AUTO) 12.8 % (20.0-44.0); MEAN CORPUSCULAR HGB CONC 31 g/dl (31.0-36.0); MEAN CORPUSCULAR VOLUME 93 fL (80-96); MONOCYTES # (AUTO) 1.6 K/uL (0.1-1.30); MONOCYTES % (AUTO) 8.9 % (2.0-12.0); NEUTROPHILS # (AUTO) 13.6 K/uL (1.8-8.9); NEUTROPHILS % (AUTO) 77.7 % (43.0-81.0); PLATELET COUNT (AUTO) 641 K/uL (150-450); RED BLOOD CELL COUNT(AUTO) 3.48 MIL/uL (4.5-6.0); WHITE BLOOD COUNT (AUTO) 17.5 K/uL (4.3-11.0)
--- NOTE | 2022-11-09 07:30 | NUR ---
ROLL COVERER OPENING NOTES PATIENT AWAKE IN BED, NOTED SHORTNESS OF BREATH, LABORED, AUDIBLE CRACKLES NOTED, O2 SAT 93% RA, PUT ON 02 2LPM VIA NC, TURNED OFF IV FLUIDS, STAT CHEST XRAY ORDERED PER MD. PATIENT ON TELE MONITOR READING ST HR 139-140, NOTED INABILITY TO RELAX, SITTER AT THE BEDSIDE, NO C/O OF CHEST PAIN. PATIENT IS A/O TIMES 1 WITH CONFUSION. ALL SAFETY MEASURES IN PLACE. ON BILATERAL RESTRAIN. SKIN AND CIRCULATION CHECKS DONE. HEAD OF THE BED ELEVATED FOR ASPIRATION PRECAUTIONS.BED LOCKED IN THE LOWEST POSITION. CALL LIGHT AND TABLE IN EASY REACH. SIDE RAILS UP TIMES 2. PLAN OF CARE CONTINUE. Addendum: 11/09/22 at 0905 by JOEL LEYVA RN T 99.0 P 140 BP 123/73 02 SAT 96-97% @2LPM 02.
[2022-11-09 07:45] LABS: ALBUMIN 3.1 g/dL (3.4-5.0); BILIRUBIN,DIRECT 2.8 mg/dL (0.0-0.2); BILIRUBIN,TOTAL 3.8 mg/dL (0.2-1.0); CALCIUM, SERUM 10.5 mg/dL (8.5-10.1); CREATININE 2.5 mg/dL (0.6-1.3); MAGNESIUM 1.5 mg/dL (1.8-2.4); PHOSPHORUS 7.7 mg/dL (2.5-4.9); POTASSIUM 5.8 mmol/L (3.5-5.1); TOTAL PROTEIN, SERUM 10.2 g/dL (6.4-8.2)
[2022-11-09] MEDS: ENSURE ENLIVE CHOC 237 ML CAN PO SCH ×3 (08:00→17:00)
--- NOTE | 2022-11-09 08:00 | NUR ---
PATIENT ALERT AND AWAKE, SITTER AT THE BEDSIDE, 02 SAT 93-94% @2LPM 02.
--- NOTE | 2022-11-09 08:15 | NUR ---
STAT CHEST XRAY DONE, PATIENT ALERT AND VERBALLY RESPONSIVE.
--- NOTE | 2022-11-09 08:16 | NUR ---
INFORMED DR. CHU AND DR. PATTON OF PATIENT'S CONDITION, WITH NEW ORDER FROM [facility] TRANSMISSION BUILDER GIVE LASIX 40 MG X 1 NOW, NOTED AND CARRIED OUT.
--- NOTE | 2022-11-09 08:20 | NUR ---
CALLED BY BEDSIDE SITTER, PATIENT IS NON RESPONSIVE, WITH PULSE, SON NOTED, RAPID RESPONSE CALLED. 02 SAT 60'S @2LPM 02. BLOOD SUGAR 153.
--- NOTE | 2022-11-09 08:25 | NUR ---
RESPONDED TO A RAPID RESPONSE , UPON ARRIVAL, PATIENT IS BEING BAGGED BY MIKAYLA LAMBERT, PATIENT IS NON VERBALLY RESPONSIVE, RESPIRATORY DISTRESS NOTED, ABDOMINAL BREATHING. EBENEZER CHU AT BEDSIDE, ACNP / HOSPITALIST. PATIENT PLACED ON MONITOR, SR-60'S. DECISION MADE TO TRANSFER TO ICU RIGHT AWAY FOR MANAGEMENT.
[2022-11-09] MEDS ORDERED: FUROSEMIDE 40 MG/4 ML VIAL IV ONE (08:30)
--- NOTE | 2022-11-09 08:30 | NUR ---
TRANSFERRED PATIENT TO ICU VIA ACLS AND RAPID RESPONSE TEAM.
--- NOTE | 2022-11-09 08:38 | NUR ---
PT ORALLY INTUBATED BY ER WITH 8.0 ET-TUBE SECURED AT 24CM. POSITIVE CO2 DETECTION ON AMBU-BAG. B/S EQUAL PLACED ON ORDERED SETTINGS ALARMS SET AND AUDIBLE AMBU-BAG AT HEAD OF BED, LARGE CALVILLO SPUTUM. VENT PLUGGED INTO RED OUTLET.
--- NOTE | 2022-11-09 08:55 | NUR ---
GAVE REPORT TO DIABETES EDUCATION COORDINATORALETA GARAY
[2022-11-09] MEDS ORDERED: PROPOFOL 100 ML IV PRN (09:00)
[2022-11-09] MEDS: THIAMINE HCL 100 MG TABLET PO SCH (09:00)
[2022-11-09] MEDS: MULTIVITAMINS,THERAGRAN 1 UDTAB TABLET PO SCH (09:00)
[2022-11-09] MEDS: PANTOPRAZOLE 40 MG TABLET.DR PO SCH ×2 (09:00→17:00)
[2022-11-09] MEDS ORDERED: NOREPINEPHRINE 8 MG in IV NS 0.9% 242 ML IV PRN (09:00)
[2022-11-09] MEDS: RIFAXIMIN 550 MG TABLET PO SCH ×2 (09:00→18:29)
[2022-11-09] MEDS ORDERED: EPINEPHRINE (1:10,000) SYRINGE 1 MG/10 ML DISP.SYRIN IVP ONE (09:28)
[2022-11-09] MEDS ORDERED: ATROPINE SULFATE 1 MG/10 ML DISP.SYRIN IV ONE (09:28)
[2022-11-09] MEDS ORDERED: SODIUM BICARBONATE SYR 50 MEQ/50 ML DISP.SYRIN IV ONE ×5 (09:28→15:30)
[2022-11-09] MEDS ORDERED: IV NS 0.9% 500 ML IV ONE (09:30)
[2022-11-09] MEDS: NOREPINEPHRINE 32 MG in IV NS 0.9% 218 ML IV PRN ×3 (09:33→19:51)
--- NOTE | 2022-11-09 09:34 | NUR ---
SYSTEMS INTEGRATION MANAGER note Patient was brought in with SYSTEMS INTEGRATION MANAGER Neyda and RT Chloé's accompany. He arrived at 08:30. At 08:35, noted that patient became bradycardic, HR 30s/min, given a dose of atropine. Then after a minute, noted that patient lost his pulse and code blue started at 08:36. ROSC at 08:39 with one epi and one bicarbonate given. Intubated at 08:38 with size 8, marking at lip 24cm. Ventilated by AC mode, rate 20/min, TV 500mL with zero PEEP. SpO2 80%. ETT confirmed by CXR. athletic monitor showed ST HR 110/minn. BP was low 65/34mmHg, started levophed 32mg at 0.1mcg/kg/min. Will titrate to achieve MAP of 65mmHg.
[2022-11-09] MEDS: PHENYLEPHRINE 100 MG in IV NS 0.9% 240 ML IV PRN ×3 (09:51→21:19)
--- NOTE | 2022-11-09 10:30 | NUR ---
RN note Post intubation ABG showed acidosis, adminsitered 100mEq NAHCO3 bolus. Started NAHCO3 drip as well.
[2022-11-09] MEDS: Sodium Bicarbonate 100 MEQ in IV D5W 1,000 ML IV SCH ×2 (10:36→21:04)
[2022-11-09 10:38] LABS: ABG BASE EXCESS -22.8 mmol/L; ABG OXYGEN SATURATION 91.4 % (92.0-98.5); ABG PCO2 34.9 mmHg (35.0-45.0); ABG PH 6.971 (7.350-7.450); ABG PO2 93.1 mmHg (75.0-100.0); COHb 0.3 % (0.5-1.5); MetHb 0.3 % (0.0-1.5); O2Hb 90.9 % (94.0-97.0); SITE, ABG Right Femoral
[2022-11-09] MEDS: PROPOFOL 100 ML IV PRN ×3 (10:45→22:42)
[2022-11-09] MEDS ORDERED: Magnesium 1GM/D5W 100ML PREMIX 100 ML IV SCH (11:00)
[2022-11-09] MEDS: HYDROCORTISONE SOD SUCCINATE 100 MG/2 ML VIAL IV SCH ×3 (11:04→21:04)
[2022-11-09] MEDS: KEPPRA 500 MG in IV NS 100 ML IV SCH ×2 (11:04→21:04)
[2022-11-09] MEDS: PIPERACILLIN /TAZOBACTAM 3.375 G in IV D5W 50 ML IV SCH ×3 (11:08→23:25)
--- NOTE | 2022-11-09 11:13 | NUR ---
Administered 1g of MgSo4 for low magnesium.
[2022-11-09] MEDS: IV NS 0.9% 250 ML IV PRN (11:24)
[2022-11-09] MEDS ORDERED: VANCOMYCIN 1.5 GM in IV D5W 500 ML IV SCH (11:30)
--- NOTE | 2022-11-09 12:10 | NUR ---
RN note ABG showed acidosis, administered 100mEq NAHCO3 bolus. Ventilator adjusted as well.
[2022-11-09 12:49] LABS: ABG BASE EXCESS -23.4 mmol/L; ABG OXYGEN SATURATION 74.5 % (92.0-98.5); ABG PCO2 39.1 mmHg (35.0-45.0); ABG PH 6.933 (7.350-7.450); ABG PO2 61.1 mmHg (75.0-100.0); AaDO2 612.8 mmHg; COHb 0.1 % (0.5-1.5); MetHb 0.1 % (0.0-1.5); O2Hb 74.4 % (94.0-97.0); PEEP,BG 0 cm H2O; SITE, ABG Left Brachial; VENT MODE, BG AC 28 550 100%; VT, ABG 550 mL
[2022-11-09] MEDS ORDERED: VASOPRESSIN INJ 40 UNIT in IV NS 0.9% 38 ML IV PRN (14:00)
--- NOTE | 2022-11-09 15:15 | NUR ---
RN note ABG showed acidosis, administered 100mEq NAHCO3 bolus. So a total of 350mEq NAHCO3 has been administered.
--- NOTE | 2022-11-09 15:47 | NUR ---
RN Note Noted no urine output since insertion this morning. Flushed the clinton and there's no leakage of NS. NS drained back to the clinton bag. Keep observation.
[2022-11-09 16:23] LABS: ABG BASE EXCESS -21.8 mmol/L; ABG OXYGEN SATURATION 79.1 % (92.0-98.5); ABG PCO2 29.6 mmHg (35.0-45.0); ABG PO2 59.9 mmHg (75.0-100.0); AaDO2 623.5 mmHg; COHb 0.3 % (0.5-1.5); MetHb 0.3 % (0.0-1.5); O2Hb 78.6 % (94.0-97.0); PEEP,BG 5 cm H2O; SITE, ABG Right Femoral; VENT MODE, BG AC 32 600 100 +5; VT, ABG 600 mL
--- NOTE | 2022-11-09 18:00 | NUR ---
RN note Fever at 1630, administered tylenol at 1800. Removed thick blanket. Keep observation.
--- NOTE | 2022-11-09 18:30 | NUR ---
RN note Still no urine output from clinton. Flushed clinton again, patent without blockage. Keep observation.
--- NOTE | 2022-11-09 19:15 | NUR ---
RN NOTE Patient in bed, sedated, in no acute distress, saturation at 95% on ET Tube 8.0 mm, 24 cm on the lip, to mechanical vent with settings as prescribed: AC 32, TV 600, FIO2 100%, peep 5; ST on the monitor HR is 124. KRISTOFER PICC line and RAC 20g patent and flushgin well, no s/s of infection or bleeding noted with Levophed infusing at 1 mcg/kg/min, Tray at 3 mcg/kg/min, Propofol at 30 mcg/kg/min, Sodium Bicarb at 100 ml/hr, and NS at TKO. NG tube at L nare connected to low intermittent suction, draining to a moderate amount of greenish output. Darden catheter draining to gravity. B soft wrist restraints in place, skin and circulation checked and are WNL. Safety measures in place, bed is locked and at lowest position, will cont to monitor and reassess.
--- NOTE | 2022-11-09 21:00 | NUR ---
RN NOTE TEMP NOTED 100.6 DEG AT 1999, TYLENOL ADMINISTERED ORDERED BY MELISA RIVER AT 1839, CONTINUOUS COOLING MEASURES PROVIDED. TEMP RECHECKED AND REVEALED 99.4 DEGREES
[2022-11-09] MEDS: OLANZAPINE ZYDIS 5 MG TAB.RAPDIS PO SCH (21:04)
[2022-11-10] VITALS (42 sets, daily range): BP systolic 63–102; BP diastolic 31–65
[2022-11-10] MEDS: NOREPINEPHRINE 32 MG in IV NS 0.9% 218 ML IV PRN ×2 (01:00→06:26)
[2022-11-10] MEDS: PHENYLEPHRINE 100 MG in IV NS 0.9% 240 ML IV PRN ×2 (02:36→09:44)
[2022-11-10] MEDS: PIPERACILLIN /TAZOBACTAM 3.375 G in IV D5W 50 ML IV SCH (05:01)
[2022-11-10] MEDS: HYDROCORTISONE SOD SUCCINATE 100 MG/2 ML VIAL IV SCH (05:01)
[2022-11-10] MEDS: LACTULOSE 10 G/15 ML UDC (PYXIS) PO SCH (05:01)
--- NOTE | 2022-11-10 05:30 | NUR ---
RN NOTE Telephone call from Kevin, stated am labs have to be re-drawn as all results appear critical. environmental analyst Mike made aware
--- NOTE | 2022-11-10 05:35 | NUR ---
RN NOTE Telephone call from lab for critical lab: blood culture positive for gram negative rods. Patient has ongoing antibiotics. Dr Mandel made was made aware. Also, made aware pt had not urine output the entire shift.
--- NOTE | 2022-11-10 07:00 | NUR ---
RN NOTE Telephone call to lab to follow up on re-draw of am labs, was told real estate financial analyst is on their way. Endorsed to AM shift RN
[2022-11-10] MEDS: Sodium Bicarbonate 100 MEQ in IV D5W 1,000 ML IV SCH (07:25)
[2022-11-10] MEDS: ENSURE ENLIVE CHOC 237 ML CAN PO SCH (07:26)
--- NOTE | 2022-11-10 07:33 | NUR ---
ICU/RN PT RECEIVED IN BED, INTUBATED ON 100% FIO2 PEEP OF 5, O2 SAT 89%. PT SEDATED ON PROPOFOL. NGT IN PLACE ON LIT, NPO STATUS. RIGHT UA PICC AND RIGHT AC 20G IN PLACE RUNNING LEVOPHED AT 1MCG/KG/MIN, PENELOPE AT 3MCG/KG/MIN, VASO AT 0.03 UNITS/MIN, NA BICARB IN D5W AT 100MLS/HR AND PROPOFOL AT 25MCG/KG/MIN. BP 102/65 HR94 AT THIS TIME. BED LOCKED AND IN LOWEST POSITION, CALL LIGHT WITHIN REACH, 3 SIDE RAILS UP.
--- NOTE | 2022-11-10 07:51 | NUR ---
ICU/RN NO URINE OUTPUT AT THIS TIME. WILL COLLECT URINE SAMPLE WHEN ABLE TO.
[2022-11-10] MEDS ORDERED: SODIUM BICARBONATE SYR 50 MEQ/50 ML DISP.SYRIN IV STA (08:05)
[2022-11-10] MEDS: KEPPRA 500 MG in IV NS 100 ML IV SCH (08:24)
[2022-11-10] MEDS: RIFAXIMIN 550 MG TABLET PO SCH (08:24)
[2022-11-10] MEDS: MULTIVITAMINS,THERAGRAN 1 UDTAB TABLET PO SCH (08:24)
[2022-11-10] MEDS: THIAMINE HCL 100 MG TABLET PO SCH (08:24)
[2022-11-10] MEDS ORDERED: PANTOPRAZOLE 40 MG/PACK PACK GT SCH (09:00)
--- NOTE | 2022-11-10 09:41 | NUR ---
ICU/RN PT'S MOTHER AND SISTER AT BEDSIDE, UPDATED ON PT'S CONDITION. FAMILY CONTINUES TO WISH FULL CODE STATUS AT THIS TIME, UNDERSTANDING OF POOR PROGNOSTIC.
[2022-11-10 09:43] LABS: ABG OXYGEN SATURATION 94.5 % (92.0-98.5); ABG PCO2 25.1 mmHg (35.0-45.0); ABG PH 6.685 (7.350-7.450); ABG PO2 112.9 mmHg (75.0-100.0); COHb 0.2 % (0.5-1.5); MetHb 0.5 % (0.0-1.5); O2Hb 93.8 % (94.0-97.0); SITE, ABG Right Femoral; VENT MODE, BG AC 32 600 100+5
[2022-11-10] MEDS ORDERED: SODIUM BICARBONATE SYR 50 MEQ/50 ML DISP.SYRIN IV ONE (11:23)
[2022-11-10] MEDS ORDERED: EPINEPHRINE (1:10,000) SYRINGE 1 MG/10 ML DISP.SYRIN IVP ONE (11:23)
[2022-11-10] MEDS ORDERED: DEXTROSE 50%-WATER 50 ML DISP.SYRIN IV ONE (11:23)
[2022-11-10] MEDS ORDERED: VANCOMYCIN 1.25 GM in IV D5W 250 ML IV SCH (12:00)
--- NOTE | 2022-11-10 12:08 | NUR ---
ICU/RN [facility] NOTIFIED, TALKED TO MALIKA,
== END 2022-11-10 11:00 | DRG 720 ==
LOC: ER 05:36 → ICU 15:22 → TELE-TD 10-20 19:45 → TELE1 10-20 19:56 → ICU 10-24 12:44 → TELE1 10-26 14:49 → MEDSG1 11-03 11:02 → TELE1 11-08 12:47 → ICU 11-09 08:33
PROVIDERS: ADMIT Internal Medicine; ATTEND Nurse Practitioner Acute Care
PROC: 30233K1 Transfusion of Nonautologous Frozen Plasma into Peripheral Vein, Percutaneous Approach (ICD-10-PCS; principal; 2022-10-18)
PROC: 05HB33Z Insertion of Infusion Device into Right Basilic Vein, Percutaneous Approach (ICD-10-PCS; 2022-10-18)
PROC: 30233N1 Transfusion of Nonautologous Red Blood Cells into Peripheral Vein, Percutaneous Approach (ICD-10-PCS; 2022-10-19)
PROC: 05HC33Z Insertion of Infusion Device into Left Basilic Vein, Percutaneous Approach (ICD-10-PCS; 2022-10-20)
PROC: 05HD33Z Insertion of Infusion Device into Right Cephalic Vein, Percutaneous Approach (ICD-10-PCS; 2022-10-25)
PROC: 02HV33Z Insertion of Infusion Device into Superior Vena Cava, Percutaneous Approach (ICD-10-PCS; 2022-10-25)
PROC: B548ZZA Ultrasonography of Superior Vena Cava, Guidance (ICD-10-PCS; 2022-10-25)
PROC: 5A1935Z Respiratory Ventilation, Less than 24 Consecutive Hours (ICD-10-PCS; 2022-11-09)
PROC: 0BH18EZ Insertion of Endotracheal Airway into Trachea, Via Natural or Artificial Opening Endoscopic (ICD-10-PCS; 2022-11-09)
PROC: 5A2204Z Restoration of Cardiac Rhythm, Single (ICD-10-PCS; 2022-11-09)
DX: A41.9 Sepsis, unspecified organism (principal); J96.01 Acute respiratory failure with hypoxia; K76.7 Hepatorenal syndrome; J69.0 Pneumonitis due to inhalation of food and vomit; G92.8 Other toxic encephalopathy; K66.1 Hemoperitoneum; R57.9 Shock, unspecified; E72.20 Disorder of urea cycle metabolism, unspecified; K70.40 Alcoholic hepatic failure without coma; E87.29 Other acidosis; K81.0 Acute cholecystitis; K85.90 Acute pancreatitis without necrosis or infection, unspecified; F10.129 Alcohol abuse with intoxication, unspecified; K70.30 Alcoholic cirrhosis of liver without ascites; K76.82 Hepatic encephalopathy; D62 Acute posthemorrhagic anemia; F10.139 Alcohol abuse with withdrawal, unspecified; Y90.5 Blood alcohol level of 100-119 mg/100 ml; Z20.822 Contact with and (suspected) exposure to COVID-19; K76.6 Portal hypertension; I10 Essential (primary) hypertension; Z79.899 Other long term (current) drug therapy; E87.6 Hypokalemia; E87.5 Hyperkalemia; K86.1 Other chronic pancreatitis; E80.6 Other disorders of bilirubin metabolism; D63.8 Anemia in other chronic diseases classified elsewhere; D69.6 Thrombocytopenia, unspecified; E83.39 Other disorders of phosphorus metabolism; E83.42 Hypomagnesemia; E88.09 Other disorders of plasma-protein metabolism, not elsewhere classified; E87.1 Hypo-osmolality and hyponatremia; D68.9 Coagulation defect, unspecified; I47.1 Supraventricular tachycardia; Z78.1 Physical restraint status; K52.9 Noninfective gastroenteritis and colitis, unspecified; N17.9 Acute kidney failure, unspecified; J98.11 Atelectasis; M87.9 Osteonecrosis, unspecified; K56.7 Ileus, unspecified; R33.9 Retention of urine, unspecified; K76.0 Fatty (change of) liver, not elsewhere classified
CPT/HCPCS: 31720; 36410; 36415; 36569; 36600; 70450-TC; 71045-TC; 71250-TC; 74018; 76705-TC; 78226; 80048-TC; 80053-TC; 80076-TC; 80202-TC; 81001; 82010-TC; 82140-TC; 82533; 82550-TC; 82803-TC; 82962-TC; 83605-TC; 83690-TC; 83735-TC; 84100-TC; 84484-TC; 85025-TC; 85027-TC; 85378-TC; 85610-TC; 85730-TC; 86704; 86706; 86803; 86850-TC; 87040-TC; 87081-TC; 87340; 87806; 93307-TC; 93970-TC; 94003-TC; 94799-TC; 97110-TC; 97112-TC; 97116-TC; 97530-TC; A4223; A4349; A6403; A9537; C9113; C9803; G0378; G0480; J0153; J0171; J0461; J0692; J0696; J0780; J1200; J1720; J1815; J1940; J1953; J2060; J2270; J2354; J2370; J2405; J2543; J2560; J3370; J3411; J3430; J3475; J3480; J3490; J7030; J7040; J7050; J7060; J7070; P9016; P9017; Q9967